=== PATIENT | female | born 1965 | race Caucasian/White ===

== ENCOUNTER 2017-08-31 18:40 | Observation (INO) ==
--- NOTE | 2017-08-31 19:32 | Emergency Department Note ---
Disposition Clinical Impression: Shortness of breath, Hyperkalemia Disposition: Admitted As Inpatient General Adult HPI - General Chief complaint: ED Shortness of Breath/Dyspnea Stated complaint: ADRY,Lung Pain Source: patient Limitations: no limitations Nursing Notes Reviewed: Yes Vital Signs Reviewed: Yes - History of Present Illness HPI Narrative: 51-year-old female past medical history of end-stage renal disease on dialysis 3 days a week, presents to the emergency department with 2 weeks of home pain. Patient states that she has had upper and lower extremity pain or last couple weeks and also reports having the feeling that she is short of breath. Patient states that she has had issues with shortness of breath after moving a walk around the house. Patient is compliant with her dialysis. Patient reports no cough or fever. He is not seen her primary care provider for this. Pain Scale: 0 - Related Data Home Medications Medication Instructions Recorded Confirmed Cetirizine HCl [All Day Allergy] 10 mg PO HS 03/20/16 09/01/17 Diltiazem CD (24hr) [Cardizem CD] 120 mg PO HS 03/20/16 09/01/17 Sertraline [Zoloft] 25 mg PO HS 03/20/16 09/01/17 Simvastatin [Zocor] 5 mg PO HS 03/20/16 09/01/17 Sodium Bicarbonate 650 mg PO TID 03/20/16 09/01/17 Zolpidem [Ambien] 10 mg PO HS 03/20/16 09/01/17 Albuterol Sulfate [Proair Hfa] 2 puff IH Q4H PRN 08/12/16 09/01/17 Calcium Acetate [Phos-LO] 4,002 mg PO TIDWM 08/12/16 09/01/17 Ondansetron HCl [Zofran] 4 - 8 mg PO DAILY PRN 08/12/16 09/01/17 Allergies Allergy/AdvReac Type Severity Reaction Status Date / Time cephalexin [From Keflex] Allergy Hives Verified 09/17/16 19:35 All systems ED: reviewed and negative except as stated. Review of Systems: As Per HPI Constitutional: Denies: fever, chills Cardiovascular: Reports: dyspnea on exertion. Denies: chest pain, palpitations , syncope Respiratory: Reports: dyspnea. Denies: cough, wheezes Gastrointestinal: Reports: abdominal pain. Denies: nausea, vomiting Genitourinary: Denies: urgency Musculoskeletal: Reports: other (Bone pain) Integumentary: Denies: rash Neurological: Denies: numbness, paresthesias Psychiatric: Denies: anxiety Past Medical History - Past Medical History Medical history: Reports: dialysis, hypertension, renal disease, SVT, other Surgical history: Reports: cholecystectomy, hip replacement, orthopedic, other Psychiatric history: Reports: no psych history OTOLARYNGOLOGY SURGEON history: Reports: no OTOLARYNGOLOGY SURGEON history - Social History Smoking Status: Current every day smoker Smokeless Tobacco Status: No Alcohol use: Reports: none Drug use: Reports: none Physical Exam - General Limitations: no limitations General appearance: alert, in no apparent distress - Head Head exam: atraumatic - Eye Eye exam: Present: normal appearance, scleral icterus - ENT ENT exam: normal exam, normal oropharynx - Neck Neck exam: Present: normal inspection - Chest Chest inspection: Present: symmetric chest wall rise - Respiratory Respiratory exam: Present: wheezes - Cardiovascular Cardiovascular exam: Present: regular rate, normal rhythm, +S1, +S2. Absent: JVD - Abdominal Exam Abdominal exam: Present: soft, Non-Tender. Absent: distention, guarding, rebound - Extremities Exam Extremities exam: Present: normal inspection, full ROM. Absent: pedal edema - Back Exam Back exam: Present: normal inspection - Neurological Exam Neurological exam: Present: alert, oriented X3 - Psychiatric Psychiatric exam: Present: normal affect, normal mood - Skin Skin exam: Present: warm, dry, intact Course Vital Signs Temperature 98.2 F 08/31/17 18:59 Pulse Rate 80 08/31/17 18:59 Respiratory Rate 18 08/31/17 18:59 Blood Pressure 175/79 08/31/17 18:59 O2 Sat by Pulse Oximetry 99 08/31/17 18:59 Temperature 97.6 F 09/01/17 05:18 Pulse Rate 88 09/01/17 05:18 Respiratory Rate 16 09/01/17 05:18 Blood Pressure 165/84 09/01/17 05:18 O2 Sat by Pulse Oximetry 95 09/01/17 05:18 Oxygen Delivery Oxygen Delivery Room Air Medical Decision Making - MDM Narrative Medical decision making narrative: 51-year-old female presents to the emergency department with worsening shortness of breath the last couple weeks. Patient has been to her dialysis treatments that she has end-stage renal disease patient. We obtained chest x-ray that did not reveal any evidence of pleural effusion, however did reveal mild cardiomegaly. EKG did not reveal any ischemic changes. We obtained a d-dimer as patient had oxygen saturation of 94% on room air with her shortness of breath. This was elevated. We obtain a CTA of the chest and this revealed calcifications of the pericardium that can be seen with restrictive pericarditis. I spoke with Dr. Zamudio, her dining manager and he stated that this was not a normal finding in patients with end-stage renal disease. Patient did have some mild wheezes on lung exam, no active cough and denies ever being diagnosed with COPD even though that she has been a 20 year smoker. One DuoNeb did assist some with her symptoms. Patient was also hyperkalemic here. Potassium was 6.3. We administered 10 units of insulin subcutaneous and gave one amp of D50. We also gave patient continuous albuterol. Patient was hemodynamically stable throughout her time in the emergency department. We do believe she needs to be admitted for a repeat echocardiogram as she has not had one since 2014 with the new findings of possible restrictive pericarditis. EKG did not reveal any evidence of pericarditis. I discussed the findings with the patient and he agreed to accept her for admission. Hospitalist accepted her. Chest X-Ray 08/31/17 19:10 IMPRESSION: No evidence for acute cardiopulmonary process. D/ / 08/31/2017 19:54:01 Warren Roebrto MD / [facility] Interpreting Provider: Warren Roberto MD Chest CTA 08/31/17 21:05 IMPRESSION: 1. No acute pulmonary embolism. 2. Mosaic ground-glass attenuation of the lungs is nonspecific and can be seen with poor lung expansion as well as small airways disease. 3. Calcifications of the pericardium. This can be seen with restrictive pericarditis. D/ / John Lakhani MD / John Lakhani MD Interpreting Provider: John Lakhani MD - Lab Data Result diagrams: 08/31/17 19:59 08/31/17 19:59 Lab Results 08/31/17 08/31/17 08/31/17 Range/Units 19:59 19:59 19:59 WBC 6.0 (4.3-11.1) K/mcL RBC 3.59 L (3.82-4.97) M/mcL Hgb 11.9 (11.5-15.4) g/dL Hct 35.5 (35.3-44.9) % MCV 98.9 (83.0-100.0) fL MCH 33.1 (28.0-33.3) pg MCHC 33.5 (31.6-35.5) g/dL RDW 17.0 H (11.5-14.5) % Plt Count 148 (140-400) K/mcL MPV 12.3 (9.4-12.4) fL D-Dimer (0-500) ng/mLFEU Sodium Cancelled Potassium Cancelled Chloride Cancelled Carbon Dioxide Cancelled BUN Cancelled Creatinine Cancelled Est GFR ( Amer) Cancelled Est GFR (Non-Af Amer) Cancelled BUN/Creatinine Ratio Cancelled Glucose Cancelled Calculated Osmolality Cancelled Lactic Acid (0.5-2.2) mmol/L Calcium Cancelled Troponin I 0.03 (< 0.04) ng/mL B-Natriuretic Peptide 342 H (Less than 100) pg/mL Specimen Rejected 08/31/17 08/31/17 08/31/17 Range/Units 19:59 19:59 19:59 WBC (4.3-11.1) K/mcL RBC (3.82-4.97) M/mcL Hgb (11.5-15.4) g/dL Hct (35.3-44.9) % MCV (83.0-100.0) fL MCH (28.0-33.3) pg MCHC (31.6-35.5) g/dL RDW (11.5-14.5) % Plt Count (140-400) K/mcL MPV (9.4-12.4) fL D-Dimer 1244 H (0-500) ng/mLFEU Sodium 137 Potassium 6.3 H Chloride 91 L Carbon Dioxide 25 BUN 49 H Creatinine 9.35 H Est GFR ( Amer) 5 L Est GFR (Non-Af Amer) 4 L BUN/Creatinine Ratio 5 L Glucose 91 Calculated Osmolality 297 Lactic Acid (0.5-2.2) mmol/L Calcium 7.0 L Troponin I (< 0.04) ng/mL B-Natriuretic Peptide (Less than 100) pg/mL Specimen Rejected Miscellaneous 08/31/17 Range/Units 20:36 WBC (4.3-11.1) K/mcL RBC (3.82-4.97) M/mcL Hgb (11.5-15.4) g/dL Hct (35.3-44.9) % MCV (83.0-100.0) fL MCH (28.0-33.3) pg MCHC (31.6-35.5) g/dL RDW (11.5-14.5) % Plt Count (140-400) K/mcL MPV (9.4-12.4) fL D-Dimer (0-500) ng/mLFEU Sodium Potassium Chloride Carbon Dioxide BUN Creatinine Est GFR ( Amer) Est GFR (Non-Af Amer) BUN/Creatinine Ratio Glucose Calculated Osmolality Lactic Acid 1.3 (0.5-2.2) mmol/L Calcium Troponin I (< 0.04) ng/mL B-Natriuretic Peptide (Less than 100) pg/mL Specimen Rejected - EKG Data EKG #1 EKG attestation: Yes I reviewed and interpreted this EKG. EKG results narrative: 08/31/2017 19:19 Sinus rhythm with a ventricular rate of 80 bpm. QT 437, QTC 472. No acute ischemic changes are noted on the EKG. Attestation Statement - Attestation Attestation: I examined this patient and my medical decision-making was reviewed with the Resident Physician. I agree with the documented findings, disposition and treatment plan as described except to the extent set forth below. Findings consistent with restrictive pericarditis. We will admit for cardiac echo. When compared to previous studies this was not evident. Patient does have renal failure. We will need admission for further management. No signs of A knot at time of admission.
[2017-08-31 20:19] LABS: Hematocrit 35.5 % (35.3-44.9); Hemoglobin 11.9 g/dL (11.5-15.4); Mean Corpuscular HGB Conc 33.5 g/dL (31.6-35.5); Mean Corpuscular Hemoglobin 33.1 pg (28.0-33.3); Mean Corpuscular Volume 98.9 fL (83.0-100.0); Mean Platelet Volume 12.3 fL (9.4-12.4); Platelet Count 148 K/mcL (140-400); Red Blood Count 3.59 M/mcL (3.82-4.97)
[2017-08-31] MEDS ORDERED: *HR* FentaNYL (PF) 100 MCG/2 ML VIAL IVP ONE (21:02)
[2017-08-31] MEDS ORDERED: Isovue-370 500 ML INFUS..BTL IV ONE (21:05)
[2017-08-31 21:09] LABS: Potassium 6.3 mEq/L (3.5-5.1)
[2017-08-31] MEDS ORDERED: Albuterol 2.5 MG/3 ML NEBULIZER IH ONE (22:57)
[2017-08-31] MEDS ORDERED: Insulin Human Regular 10 UNIT in 0.9 % Sodium Chloride 10 ML IV ONE (22:58)
[2017-08-31] MEDS ORDERED: *HR* Dextrose 50 % in Water (Syg) 50 ML SYRINGE IVP ONE (22:58)
[2017-09-01] MEDS ORDERED: Naloxone 0.4 MG/ML INJ IVP PRN (05:07)
--- NOTE | 2017-09-01 05:22 | Internal Med History&Physical ---
Date of Encounter: 09/01/17 Time of Encounter: 04:00 Internal Medicine - H&P: HPI Chief complaint: Shortness of breath and bone pain Admitted From: Home Plans for Post Hospital Care: Home History of present illness: Ms. Taylor is a 51 year old female present to ER for whole-body bone pain. Past medical history is significant for hypertension, end-stage renal disease on hemodialysis, hyperparathyroidism S/P parathyroid gland resection. Patient said in last 3 weeks she feels whole-body bone ache, mainly on both arms and the legs. Patient still can walk and have normal daily activity. Patient also complaining shortness of breath, easy being tired. She denies cough, nausea, or fever. In the emergency room, she was found hyperkalemia with potassium level 6.3. Because of shortness of breath, d-dimer was checked, which was positive. ER doctor ordered CTA and the shows paracardium calcification, need to rule out restrictive pericarditis. Patient was admitted for further management. Past Med Surg Social Fam HX - Past Medical History Medical history: dialysis, hypertension, renal disease, SVT, other Psychiatric history: no psych history - Past Surgical History Surgical History: cholecystectomy, hip replacement, orthopedic, other - Social History Smoking Status: Current every day smoker Smokeless Tobacco Status: No Alcohol use: none Drug use: none - Family History Mother History Unknown: Yes Internal Medicine - H&P: Meds Cetirizine HCl [All Day Allergy] 10 mg PO HS 03/20/16 [History] Diltiazem CD (24hr) [Cardizem CD] 120 mg PO HS 03/20/16 [History] Sertraline [Zoloft] 25 mg PO HS 03/20/16 [History] Simvastatin [Zocor] 5 mg PO HS 03/20/16 [History] Sodium Bicarbonate 650 mg PO TID 03/20/16 [History] Zolpidem [Ambien] 10 mg PO HS 03/20/16 [History] Albuterol Sulfate [Proair Hfa] 2 puff IH Q4H PRN 08/12/16 [History] Calcium Acetate [Phos-LO] 4,002 mg PO TIDWM 08/12/16 [History] Ondansetron HCl [Zofran] 4 - 8 mg PO DAILY PRN 08/12/16 [History] 3 Allergy/AdvReac Type Severity Reaction Status Date / Time cephalexin [From Keflex] Allergy Hives Verified 09/17/16 19:35 All Systems PM: A 10-system review of systems was performed and is negative for pertinent findings except as documented above in the HPI. - Constitutional Vitals: Temp Pulse Resp BP Pulse Ox 97.6 F 88 16 165/84 95 09/01/17 05:18 09/01/17 05:18 09/01/17 05:18 09/01/17 05:18 09/01/17 05:18 General appearance: Present: A&O X 3, no acute distress, answers questions appropriately - Head Head exam: Present: atraumatic, normocephalic - Eye Eye exam: Present: PERRL, conjuntiva pink, sclera anicteric Pupils: Present: PERRL - Neck Neck exam general surgery: Present: supple, trachea midline. Absent: lymphadenopathy - Respiratory Respiratory exam: Present: CTAB. Absent: accessory muscle use, rales, rhonchi, wheezes - Cardiovascular Cardiovascular exam: Present: RRR, +S1, +S2. Absent: diastolic murmur, gallop, rubs, systolic murmur - GI/Abdominal GI/Abdominal exam: Present: normal bowel sounds, soft, no peritoneal signs. Absent: distended, tenderness - Extremities Exam Extremities exam: Present: warm, radial pulses palpable and symmetrical. Absent : calf tenderness, cyanotic, pedal edema - Neurological Exam Neurological exam: Present: CN II-XII intact, oriented X3, no focal deficits. Absent: pronater drift, facial droop, speech deficit - Skin Skin exam: Present: dry, intact Internal Med - H&P Results - Labs CBC & Chem 7: 08/31/17 19:59 08/31/17 19:59 - Assessment and plan (1) Bone pain Current Visit: Yes Status: Acute Assessment and plan: Patient has history of hyperparathyroidism. Had the surgery previously. Need to rule out hyperparathyroidism (secondary or primary). - Check parathyroid hormone together with calcium and albumin level. - Further test can be done as outpatient. (2) DVT prophylaxis Current Visit: Yes Status: Acute Assessment and plan: Heparin subcutaneously (3) End stage renal disease Current Visit: Yes Status: Acute Assessment and plan: Continue hemodialysis as scheduled (4) Hyperkalemia Current Visit: Yes Status: Acute Assessment and plan: Patient was treated with insulin and glucose IV, albuterol inhaler in the emergency room. Will also give her Kayexalate by mouth 30 g once. Follow-up potassium level. (5) Shortness of breath Current Visit: Yes Status: Acute Assessment and plan: Chronic onset shortness of breath. CTA shows pericardium calcification. Need to rule out restrictive pericarditis. - No clinical sign of restrictive pericarditis so far. - We will check echocardiogram in a.m. - Time Spent With Patient Total time spent is greater than 50% in coordination of care (as documented) at patient's floor/unit and/or counseling patient: 40 minutes Greater than 35 minutes
[2017-09-01] MEDS: *HR* Heparin 5,000 UNIT/ML VIAL SQ SCH ×2 (06:15→21:56)
[2017-09-01] MEDS: Acetaminophen 325 MG TABLET PO PRN ×2 (06:15→18:22)
[2017-09-01 06:33] LABS: Albumin 4.5 g/dL (3.5-5.7); Albumin/Globulin Ratio 1.5 (1.1-2.2); Bilirubin,Total 0.4 mg/dL (0.3-1.0); Calcium 7.1 mg/dL (8.6-10.3); Potassium 4.3 mEq/L (3.5-5.1); Total Protein 7.5 g/dL (6.4-8.9)
[2017-09-01 08:21] LABS: Hepatitis B Surface Antigen Nonreactive (Nonreactive)
--- NOTE | 2017-09-01 08:22 | Internal Med Progress Note ---
Addendum entered and electronically signed by Abelardo Vallejo DO 09/01/17 16: 42: Addendum to (1) - diruesis was entered in error, as patient is on HD for fluid removal Original Note: <Abelardo Vallejo - Last Filed: 09/01/17 16:31> Date of Encounter: 09/01/17 Time of Encounter: 08:45 - Assessment and plan (1) Shortness of breath Current Visit: Yes Status: Acute Assessment and plan: Chronic onset shortness of breath. CTA shows pericardium calcification. Need to rule out restrictive pericarditis. - No clinical sign of restrictive pericarditis so far. - Echocardiogram remains pending - Continued gentle diuresis (2) Hyperkalemia Current Visit: Yes Status: Resolved Assessment and plan: Resolved (3) Bone pain Current Visit: Yes Status: Acute Assessment and plan: Patient has history of hyperparathyroidism s/p parathyroidectomy. Need to rule out hyperparathyroidism (secondary or primary). - Elevated PTH, low calcium. - We will check Vitamin D25 [place] level - Further test can be done as outpatient. (4) End stage renal disease Current Visit: Yes Status: Acute Assessment and plan: Continue hemodialysis as scheduled per nephrology (5) DVT prophylaxis Current Visit: Yes Status: Acute Assessment and plan: Heparin subcutaneously (6) Hypocalcemia Current Visit: Yes Status: Acute Assessment and plan: Possibly related to PTH/parathyroidectomy vs ESRD We will check ionized calcium and vit D 25OH - Time Spent With Patient Total time spent is greater than 50% in coordination of care (as documented) at patient's floor/unit and/or counseling patient: - Subjective Interval history: The patient is seen and examined at bedside. She says that she is feeling mildly better than she did when she came in. Today is a hemodialysis today being seen by nephrology. She has no acute complaints. - Constitutional Vitals: Temp Pulse Resp BP Pulse Ox 98 F 84 18 142/73 97 09/01/17 07:13 09/01/17 07:13 09/01/17 07:13 09/01/17 07:13 09/01/17 07:13 General appearance: Present: A&O X 3, no acute distress, answers questions appropriately Exam: Gen: Vitals noted. No acute distress. HEENT: PERRL/EOMI, oropharynx clear, Normocephalic, atraumatic Neck: Supple. No adenopathy. Cardiac: RRR, no murmur, +S1/S2 Pulmonary: CTA bilaterally but somewhat diminished, no wheezes, rales or rhonchi , equal chest expansion Abdomen: moderately distended and taught, nontender, no guarding MSK: ROM intact, no joint swelling noted Extremities: trace BLE edema, nontender calf, no cyanosis or clubbing Neuro: moves all extremities, no focal deficits Psych: Appropriate mood and behavior Internal Medicine: Result - Labs CBC & Chem 7: 08/31/17 19:59 09/01/17 05:47 Labs: BMP 09/01/17 05:47 Sodium 142 Potassium 4.3 D Chloride 94 L Carbon Dioxide 23 BUN 52 H Creatinine 10.47 H Glucose 109 H Calcium 7.1 L Liver Function 09/01/17 Range/Units 05:47 Total Bilirubin 0.4 (0.3-1.0) mg/dL AST 21 (13-39) Units/L ALT 17 (7-52) Units/L Alkaline Phosphatase 110 H (34-104) Units/L Albumin 4.5 (3.5-5.7) g/dL - ABG Interpretation ABG results: PT/INR, D-dimer D-Dimer 1244 ng/mLFEU (0-500) H 08/31/17 19:59 Consult Discharge Plan - Plan Referrals: Demetra Ellison, [facility] HOOKER [Primary Care Provider] - <Patric Cota - Last Filed: 09/01/17 18:29> Date of Encounter: 09/01/17 - Assessment and plan (1) Constrictive pericarditis Current Visit: Yes Status: Suspected (2) Hyperkalemia Current Visit: Yes Status: Resolved (3) Shortness of breath Current Visit: Yes Status: Acute (4) Bone pain Current Visit: Yes Status: Acute (5) End stage renal disease Current Visit: Yes Status: Acute (6) Hypocalcemia Current Visit: Yes Status: Acute (7) DVT prophylaxis Current Visit: Yes Status: Acute - Time Spent With Patient Total time spent is greater than 50% in coordination of care (as documented) at patient's floor/unit and/or counseling patient: - Constitutional Vitals: Temp Pulse Resp BP Pulse Ox 97.9 F 82 20 153/81 94 09/01/17 15:40 09/01/17 15:16 09/01/17 15:40 09/01/17 18:10 09/01/17 15:16 Internal Medicine: Result - Labs CBC & Chem 7: 08/31/17 19:59 09/01/17 05:47 Labs: BMP 09/01/17 05:47 Sodium 142 Potassium 4.3 D Chloride 94 L Carbon Dioxide 23 BUN 52 H Creatinine 10.47 H Glucose 109 H Calcium 7.1 L Liver Function 09/01/17 Range/Units 05:47 Total Bilirubin 0.4 (0.3-1.0) mg/dL AST 21 (13-39) Units/L ALT 17 (7-52) Units/L Alkaline Phosphatase 110 H (34-104) Units/L Albumin 4.5 (3.5-5.7) g/dL - ABG Interpretation ABG results: PT/INR, D-dimer D-Dimer 1244 ng/mLFEU (0-500) H 08/31/17 19:59 - Attending Attestation I examined this patient and my medical decision-making was reviewed with the Resident Physician on 09/01/17. I agree with the documented findings, disposition and treatment plan as described except to the extent set forth below. Ms Taylor is currently admitted for hyperkalemia and diffuse pain. She remains moderate to high risk due to potential for worsening clinical status. Ms Taylor is going to dialysis. No fever or chills. CT had concern for constrictive pericarditis. Exam alert Comfortable Mucus membranes dry Heart not tachycardic No wheeze I/P 1. Hyperkalemia 2. 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
[2017-09-01 08:31] LABS: Hepatitis B Surface Antibody 19.51 mIU/mL
[2017-09-01] MEDS: Calcium Acetate 667 MG CAPSULE PO SCH ×3 (08:34→21:56)
[2017-09-01] MEDS: Ondansetron ODT 4 MG TAB.RAPDIS PO PRN (08:37)
--- NOTE | 2017-09-01 09:22 | Nephrology Consult Note ---
Date of Encounter: 09/01/17 Time of Encounter: 09:19 Assessment and Plan (1) End stage renal disease Current Visit: Yes Status: Acute The patient has end-stage renal disease. She will continue with dialysis every Wednesday. Hemoglobin was is 11.9 so she does not require Aranesp. We will check a phosphorus level. PTH is within normal limits for dialysis patient. She does have calcification of the pericardium and likely should have an echocardiogram. Her symptoms of exertional dyspnea and diaphoresis do not seem to be related to volume overload. It may be worthwhile to do a adenosine stress test. (2) Shortness of breath Current Visit: Yes Status: Acute (3) Bone pain Current Visit: Yes Status: Acute History of Present Illness - History of Present Illness This is a 51-year-old female who has end-stage renal disease. She receives dialysis injection every Wednesday. Patient presented to the restroom with complaints of worsening bone pain as well as complaints of shortness of breath. Patient has a history of secondary hyperparathyroidism. She underwent a parathyroidectomy years ago. Current PTH is within normal limits for dialysis patient. She has had issues with hyperphosphatemia and subsequent hypocalcemia although this is managed with medication. She also relates worsening dyspnea with minimal exertion associated with diaphoresis. She denies any chest pain or nausea. Patient has had multiple joint issues and multiple joint replacements over the years. She says most of her bone pain is in the forearm areas and the upper legs. She states she has not had any type of bone density testing as far she is aware. She has been placed on vitamin D by her primary care provider. The patient's chest x-ray was unremarkable. A CT angiogram was negative for pulmonary embolism. The CT did show calcification of the pericardium. Past Med Surg Social Fam HX - Past Medical History Medical history: dialysis, hyperlipidemia, hypertension, renal disease, SVT, thyroid disease, other Psychiatric history: anxiety, depression - Past Surgical History Surgical History: cholecystectomy, hip replacement, orthopedic, other, thyroidectomy, transplant - Social History Smoking Status: Current every day smoker Packs per day: 0.5 Smokeless Tobacco Status: No Alcohol use: none Drug use: none - Family History Mother History Unknown: Yes Living Status: Age at : 58 Cause of : ALS Hx Family Endocrine Disorder: Yes (Type 2 DM) Hx Family Medical Disorders: Yes (ALS) Father Living Status: Age at : 71 Cause of : Unknown Hx Family Cardiac Disorders: Yes (HTN) Hx Family Respiratory Disorders: Yes (COPD) Hx Family Cancer: Yes (Colon ca) Hx Family Endocrine Disorder: Yes (DM Type 2) Medications and Allergies Cetirizine HCl [All Day Allergy] 10 mg PO HS 03/20/16 [History] Sertraline [Zoloft] 25 mg PO HS 03/20/16 [History] Simvastatin [Zocor] 5 mg PO HS 03/20/16 [History] Sodium Bicarbonate 650 mg PO TID 03/20/16 [History] Zolpidem [Ambien] 10 mg PO HS 03/20/16 [History] Albuterol Sulfate [Proair Hfa] 2 puff IH Q4H PRN 08/12/16 [History] Calcium Acetate [Phos-LO] 4,002 mg PO TIDWM 08/12/16 [History] Ondansetron HCl [Zofran] 4 - 8 mg PO DAILY PRN 08/12/16 [History] Cholecalciferol (Vitamin D3) [Vitamin D3] 10,000 unit PO DAILY 09/01/17 [History ] dilTIAZem HCl [Diltiazem HCl] 120 mg PO DAILY 09/01/17 [History] 3 Allergy/AdvReac Type Severity Reaction Status Date / Time cephalexin [From Keflex] Allergy Hives Verified 09/01/17 09:07 Review of Systems Constitutional: as per HPI Nose, mouth and throat: no dizziness, no headache(s) Cardiovascular: dyspnea on exertion, no chest pain, no palpitations Respiratory: dyspnea on exertion Gastrointestinal: no abdominal pain, no change in bowel habits Musculoskeletal: no muscle weakness, no numbness Integumentary: no hirsutism, no striae Neurological: as per HPI Psychiatric: no depression, no difficulty concentrating Endocrine: as per HPI Hematologic/Lymphatic: no easy bruising, no lymphadenopathy Exam - Vital Signs Vital signs: Initial Vital Signs Temp Pulse Resp BP Pulse Ox 98.2 F 80 18 175/79 99 08/31/17 18:59 08/31/17 18:59 08/31/17 18:59 08/31/17 18:59 08/31/17 18:59 Vital Signs - Last 8 Hours Temp Pulse Resp BP Pulse Ox 05/16/18 07:13 98 F 84 18 142/73 97 09/01/17 05:18 97.6 F 88 16 165/84 95 09/01/17 04:37 18 140/65 Intake and Output 08/31/17 09/01/17 09/01/17 23:59 07:59 15:59 Output Total 0 / 0 Balance 0 / 0 Output: Urine 0 / 0 Other: Weight 93.1 kg Patient Weight 09/01/17 23:59 Weight 93.1 kg - General Appearance Exam: Patient is alert and oriented. She is in no acute distress. She is sitting on the edge of the bed. Lungs clear to auscultation. Heart regular rate and rhythm with a 2/6 talk ejection murmur. Abdomen shows normal bowel sounds bruits masses or megaly or tenderness. Lower extremity show no peripheral edema. There is a functioning AV graft in the left upper extremity. Results - Lab Results 08/31/17 19:59 09/01/17 05:47 Most recent lab results Calcium 7.1 mg/dL (8.6-10.3) L 09/01/17 05:47 Consult Discharge Plan - Plan Referrals: Demetra Ellison, PLANNING ASSOCIATE [Primary Care Provider] -
[2017-09-01] MEDS ORDERED: 0.9 % Sodium Chloride 250 ML IVC PRN (09:23)
[2017-09-01] MEDS ORDERED: Calcium Chloride 1,000 MG in 0.9 % Sodium Chloride 100 ML IVPB ONE (11:07)
--- NOTE | 2017-09-01 16:19 | Electrocardiograph Report ---
[place] [id number] Test Date: 2017-08-31 Pat Name: Katlyn Taylor Department: 103 Room: 2NE17 Gender: F Ground Operations Supervisor: TISH : 1965 Requested By: Vincent Beavers Order Number: [id number] Reading MD: Chloé Dunn Measurements Intervals [place] Rate: 80 P: 92 MI: 176 QRS: 57 QRSD: 88 T: 79 QT: 437 QTc: 472 Interpretive Statements SINUS RHYTHM MINIMAL ST DEPRESSION [0.025+ mV ST DEPRESSION] PROLONGED QT INTERVAL Electronically Signed On 09-01-2017 16:17:16 EDT by Chloé Dunn
[2017-09-01 17:24] LABS: VBG Ionized Calcium 0.86 mmol/L (1.15-1.35)
[2017-09-01] MEDS ORDERED: Loratadine 10 MG TABLET PO SCH (21:00)
[2017-09-01] MEDS ORDERED: Diltiazem CD (24hr) 120 MG CAPSULE PO SCH (21:00)
[2017-09-02 04:50] LABS: Basophils % 0.5 %; Eosinophils # 0.2 K/mcL (0.0-0.6); Eosinophils % 2.7 %; Hematocrit 36.3 % (35.3-44.9); Hemoglobin 11.4 g/dL (11.5-15.4); Immature Granulocytes % 0.4 % (0-4); Lymphocytes # 0.9 K/mcL (0.6-4.6); Lymphocytes % 16.9 %; Mean Corpuscular HGB Conc 31.4 g/dL (31.6-35.5); Mean Corpuscular Hemoglobin 32.2 pg (28.0-33.3); Mean Corpuscular Volume 102.5 fL (83.0-100.0); Mean Platelet Volume 11.5 fL (9.4-12.4); Monocytes # 0.4 K/mcL (0.0-1.3); Monocytes % 7.4 %; Platelet Count 160 K/mcL (140-400); Red Blood Count 3.54 M/mcL (3.82-4.97); Red Cell Distribution Width 17.5 % (11.5-14.5); Segmented Neutrophils % 72.1 %
[2017-09-02 05:15] LABS: Calcium 7.6 mg/dL (8.6-10.3); Phosphorous 5.5 mg/dL (2.7-4.5); Potassium 4.6 mEq/L (3.5-5.1)
[2017-09-02] MEDS: *HR* Heparin 5,000 UNIT/ML VIAL SQ SCH (06:30)
[2017-09-02] MEDS: Ondansetron ODT 4 MG TAB.RAPDIS PO PRN (08:21)
[2017-09-02] MEDS: Calcium Acetate 667 MG CAPSULE PO SCH ×2 (08:21→11:35)
[2017-09-02] MEDS ORDERED: Calcium Gluconate 2,000 MG in 0.9 % Sodium Chloride 100 ML IVPB ONE (08:55)
--- NOTE | 2017-09-02 09:03 | Discharge Summary ---
<Abelardo Vallejo - Last Filed: 09/02/17 15:13> - NOTES TO OUTPATIENT PROVIDER Notes to Outpatient Provider: The patient was admitted for fluid overload, end- stage renal disease, hyperkalemia. In addition this, she was having aches all over her body, and on her arms and legs. She was having increasing difficulty doing daily tasks is this pain and shortness of breath that she was experiencing. There is concern for PE, however CTA did not demonstrate. She also received an echocardiogram which was grossly normal. She will need DEXA as outpatient. Orders not resulted at time of discharge: Pending orders 09/01/17 07:21 Vitamin D 25 Hydroxy Routine Date of Encounter: 09/02/17 Time of Encounter: 08:50 - Discharge Diagnosis (1) Shortness of breath Priority: Primary Status: Acute Assessment and Plan: Chronic onset shortness of breath. CTA shows pericardium calcification. Need to rule out restrictive pericarditis. - No clinical sign of restrictive pericarditis so far. - Echocardiogram shows normal LVEF with mild aortic stenosis - She does admit to trouble tolerating full hemodialysis, defer to nephrology (2) Hyperkalemia Priority: Secondary Status: Resolved Assessment and Plan: Resolved (3) Bone pain Priority: Secondary Status: Acute Assessment and Plan: Patient has history of hyperparathyroidism s/p parathyroidectomy. Need to rule out hyperparathyroidism (secondary or primary). - Elevated PTH, low calcium. Vitamin D 25OH is at appropriate lever - Some symptoms are consistent with hypocalcemia, and he venous ionized calcium was in fact low - Supplemented calcium in hospital, sent patient out on PO calcium and wrote order for 1 week BMP + ionized calcium - Further test can be done as outpatient. May benefit from endocrinology referral per PCP (4) End stage renal disease Priority: Secondary Status: Acute Assessment and Plan: Continue hemodialysis as scheduled per nephrology (5) Hypocalcemia Priority: Secondary Status: Acute Assessment and Plan: Possibly related to PTH/parathyroidectomy vs ESRD See plan above Hospital course: Ms. Taylor is a 51 year old female with history of hyperparathyroidism status post parathyroidectomy, ESRD on Hd who presented with complaint of whole body pain for several weeks that has been worsening insidiously over time. In addition of this she complained of headache, and she had some shortness of breath on admission. She did receive an echocardiogram which only demonstrated mild aortic stenosis, however she was also found to be significantly hypocalcemic. Respiratory infection panel did not demonstrate any signs of viral infection at this time. For more detailed hospital course with specific post discharge plans, please see individual assessments. Discharge discussed with: patient, nurse, internal control consultant - Time Spent with Patient Total time spent providing and/or coordinating discharge services: Greater than 30 minutes - Discharge Medications Prescriptions: Calcium Carbonate [Tums] 1,000 mg PO DAILY 7 Days #28 tab.chew Home Medications: Cetirizine HCl [All Day Allergy] 10 mg PO HS 03/20/16 [History] Sertraline [Zoloft] 25 mg PO HS 03/20/16 [History] Simvastatin [Zocor] 5 mg PO HS 03/20/16 [History] Sodium Bicarbonate 650 mg PO TID 03/20/16 [History] Zolpidem [Ambien] 10 mg PO HS 03/20/16 [History] Albuterol Sulfate [Proair Hfa] 2 puff IH Q4H PRN 08/12/16 [History] Calcium Acetate [Phos-LO] 4,002 mg PO TIDWM 08/12/16 [History] Ondansetron HCl [Zofran] 4 - 8 mg PO DAILY PRN 08/12/16 [History] Cholecalciferol (Vitamin D3) [Vitamin D3] 10,000 unit PO DAILY 09/01/17 [History ] Calcium Carbonate [Tums] 1,000 mg PO DAILY 7 Days #28 tab.chew 09/02/17 [Rx] Diltiazem CD (24hr) [Cardizem CD] 120 mg PO HS cap.er.24h 09/02/17 [Rx] Allergies/Adverse Reactions: 3 Allergy/AdvReac Type Severity Reaction Status Date / Time cephalexin [From Keflex] Allergy Hives Verified 09/01/17 09:07 Date of admission: 09/01/17 03:30 Primary care physician: Demetra Ellison, Consults: 09/01/17 05:18 Consult to Nephrology [CONS] Routine Consulting Provider: [facility] Reason for Consult: Hyperkalemia Call Completed: No 09/01/17 09:30 Consult to Dialysis [CONS] ONCE Discharging clinician: Abelardo Vallejo Anticipated date of discharge: 09/02/17 - Constitutional Vitals: Temp Pulse Resp BP Pulse Ox 97.7 F 83 16 108/72 95 09/02/17 07:01 09/02/17 07:01 09/02/17 07:01 09/02/17 07:01 09/02/17 07:01 General appearance: Present: A&O X 3, no acute distress, answers questions appropriately Exam: Gen: Vitals noted. No acute distress. HEENT: Normocephalic, atraumatic Neck: Supple. No adenopathy. Cardiac: RRR, no murmur, +S1/S2 Pulmonary: CTA bilaterally but somewhat diminished, no wheezes, rales or rhonchi , equal chest expansion Abdomen: moderately distended and taught, nontender, no guarding MSK: ROM intact, no joint swelling noted Extremities: trace BLE edema, nontender calf, no cyanosis or clubbing Neuro: moves all extremities, no focal deficits Psych: Appropriate mood and behavior - Patient Status Disposition: Home, Self-Care Condition: Good Functional capacity at discharge: independent ambulation Overall status at discharge: patient is progressing back to baseline - Discharge Instructions Follow Up With: Demetra Ellison CNP [Primary Care Provider] - Additional Instructions: Follow-up with primary care in 3-5 days Continue HD on regular schedule. Follow with Nephrology as directed. Take medications as prescribed. Repeat labs in one week to monitor calcium. Will likely require DEXA scan - Diet and Activity Activity: increase activity as tolerated, resume usual activities as tolerated Diet: other (Renal diet) <Patric Cota - Last Filed: 09/02/17 16:15> Date of Encounter: 09/02/17 - Discharge Diagnosis (1) Hypocalcemia Status: Acute (2) Shortness of breath Status: Acute (3) Hyperkalemia Status: Resolved (4) Bone pain Status: Acute (5) End stage renal disease Status: Acute (6) Tobacco abuse Priority: Secondary Status: Chronic (7) Constrictive pericarditis Priority: Secondary Status: Ruled-out Hospital course: Ms. Taylor is a 51 year old female - Time Spent with Patient Total time spent providing and/or coordinating discharge services: 37min Date of admission: 09/01/17 03:30 Primary care physician: Demetra Ellison, Consults: 09/01/17 05:18 Consult to Nephrology [CONS] Routine Consulting Provider: [facility] Reason for Consult: Hyperkalemia Call Completed: No 09/01/17 09:30 Consult to Dialysis [CONS] ONCE - Constitutional Vitals: Temp Pulse Resp BP Pulse Ox 98.3 F 77 16 125/103 93 09/02/17 10:34 09/02/17 10:34 09/02/17 10:34 09/02/17 10:34 09/02/17 10:34 - Attending Attestation I examined this patient and my medical decision-making was reviewed with the Resident Physician on 09/02/17. I agree with the documented findings, disposition and treatment plan as described except to the extent set forth below. Ms Taylor has been in observation for hyperkalemia and hypocalcemia. She is now afebrile. She has been given IV Calcium. Echo was negative for constrictive pericarditis. She is ready for discharge home. Exam alert Comfortable Mucus membranes moist Heart not tachy No wheeze Plan D/C home today
[2017-09-02 10:39] VITALS: BP 125/103
--- NOTE | 2017-09-02 11:45 | Nephrology Progress Note ---
Date of Encounter: 09/02/17 Time of Encounter: 09:50 - Assessment and Plan (1) End stage renal disease Current Visit: Yes Status: Acute No HD today, keeping MWF schedule. Subjective Interval history: Sitting up in bed. States feeling better, would like to go home. Objective - Vital Signs Vital signs: Vital Signs Temp Pulse Resp BP Pulse Ox 09/02/17 10:34 98.3 F 77 16 125/103 93 09/02/17 07:01 97.7 F 83 16 108/72 95 09/02/17 04:00 98 F 93 15 137/102 96 09/01/17 23:00 98.4 F 94 15 143/86 96 09/01/17 19:00 98.3 F 91 16 142/103 97 09/01/17 18:40 151/85 09/01/17 18:25 155/83 09/01/17 18:10 153/81 09/01/17 17:55 146/84 09/01/17 17:40 156/89 09/01/17 17:25 168/92 09/01/17 17:10 163/87 09/01/17 16:55 153/93 09/01/17 16:40 145/93 09/01/17 16:25 161/96 09/01/17 16:10 150/96 09/01/17 15:55 145/83 09/01/17 15:40 97.9 F 20 160/98 09/01/17 15:16 98.1 F 82 18 146/70 94 Intake and Output 09/01/17 09/02/17 09/02/17 23:59 07:59 15:59 Intake Total 200 / 200 400 / 400 240 / 240 Output Total 3600 / 3600 0 / 0 0 / 0 Balance -3400 / -3400 400 / 400 240 / 240 Intake: Oral 200 / 200 400 / 400 240 / 240 Output: Urine 0 / 0 0 / 0 0 / 0 Total Dialysis (HD) Output 3600 / 3600 Other: Meal Breakfast Percent of Meal Consumed 95% Weight 89.2 kg 89.2 kg Hemodialysis Net Fluid Removed 3000 (mL) Patient Weight 09/02/17 23:59 Weight 89.2 kg - General Appearance General appearance: Present: well-developed, well-nourished, appears started age EENT: Present: mucous membranes moist Neck: Present: no JVD Respiratory: Present: clear Cardiology: Present: no edema, regular rate, regular rhythm Gastrointestinal: Present: normoactive bowel sounds, no tenderness Integumentary: Present: warm and dry Neurologic: Present: alert and oriented x3 - Lab 09/02/17 04:29 09/02/17 04:29 Most recent lab results Calcium 7.6 mg/dL (8.6-10.3) L 09/02/17 04:29 Phosphorus 5.5 mg/dL (2.7-4.5) H 09/02/17 04:29 Magnesium 2.0 mg/dL (1.6-2.6) 09/02/17 04:29 Consult Discharge Plan - Plan Additional Instructions: Follow-up with primary care in 3-5 days Continue HD on regular schedule. Follow with Nephrology as directed. Take medications as prescribed. Repeat labs in one week to monitor calcium. Referrals: Demetra Ellison CNP [Primary Care Provider] - Prescriptions: Calcium Carbonate [Tums] 1,000 mg PO DAILY 7 Days #28 tab.chew
[2017-09-02 13:12] LABS: Adenovirus Not Detected (Not Detect); Bordetella Pertussis Not Detected (Not Detect); Chlamydophila pneumoniae Not Detected (Not Detect); Coronavirus 229E Not Detected (Not Detect); Coronavirus HKU1 Not Detected (Not Detect); Coronavirus NL63 Not Detected (Not Detect); Coronavirus OC43 Not Detected (Not Detect); Human Metapneumovirus Not Detected (Not Detect); Human Rhinovirus/Enterovirus Not Detected (Not Detect); Influenza A Subtype 2009 H1 Not Detected (Not Detect); Influenza A Untypeable Not Detected (Not Detect); Influenza B Not Detected (Not Detect); Mycoplasma pneumoniae Not Detected (Not Detect); Parainfluenza Virus 1 Not Detected (Not Detect); Parainfluenza Virus 2 Not Detected (Not Detect); Parainfluenza Virus 3 Not Detected (Not Detect); Parainfluenza Virus 4 Not Detected (Not Detect); Respiratory Syncytial Virus Not Detected (Not Detect)
== END 2017-09-02 13:44 | disposition home or self-care (01) ==
LOC: 2NENU 18:40 → EMEROO 18:40 → SUATTDRO 09-01 03:30 → 2NENU 09-01 04:37
PROVIDERS: ADMIT Family Medicine; ATTEND Internal Medicine

== ENCOUNTER 2018-01-14 12:33 | Inpatient (IN) ==
--- NOTE | 2018-01-14 13:09 | Emergency Department Note ---
Disposition Clinical Impression: Anemia, End stage renal disease Disposition: Admitted As Inpatient Condition: Good General Adult HPI - General Chief complaint: ED Recheck/Abnormal Lab/Rx Stated complaint: low hgb Time Seen by Provider: 01/14/18 12:40 Source: patient Limitations: no limitations Nursing Notes Reviewed: Yes Vital Signs Reviewed: Yes - History of Present Illness Pain Scale: 0 - Related Data Home Medications Medication Instructions Recorded Confirmed Cetirizine HCl [All Day Allergy] 10 mg PO HS 03/20/16 01/14/18 Sertraline [Zoloft] 25 mg PO HS 03/20/16 01/14/18 Simvastatin [Zocor] 5 mg PO HS 03/20/16 01/14/18 Sodium Bicarbonate 650 mg PO TID 03/20/16 01/14/18 Zolpidem [Ambien] 10 mg PO HS 03/20/16 01/14/18 Albuterol Sulfate [Proair Hfa] 2 puff IH Q4H PRN 08/12/16 01/14/18 Calcium Acetate [Phos-LO] 4,002 mg PO TIDWM 08/12/16 01/14/18 Ondansetron HCl [Zofran] 4 - 8 mg PO DAILY PRN 08/12/16 01/14/18 Cholecalciferol (Vitamin D3) 10,000 unit PO DAILY 09/01/17 01/14/18 [Vitamin D3] cloNIDine HCl [CloNIDine HCl] 0.1 mg PO DAILY PRN 01/14/18 01/14/18 Previous Rx's Medication Instructions Recorded Calcium Carbonate [Tums] 1,000 mg PO DAILY 7 Days #28 09/02/17 tab.chew Diltiazem CD (24hr) [Cardizem CD] 120 mg PO HS cap.er.24h 09/02/17 Allergies Allergy/AdvReac Type Severity Reaction Status Date / Time cephalexin [From Keflex] Allergy Hives Verified 09/01/17 09:07 Past Medical History - Past Medical History Medical history: Reports: coronary artery disease, dialysis, hyperlipidemia, hypertension, peripheral artery disease, renal disease, SVT, thyroid disease, other Surgical history: Reports: cholecystectomy, hip replacement, orthopedic, other, thyroidectomy, transplant Psychiatric history: Reports: anxiety, depression BRAND ADVISOR history: Reports: no BRAND ADVISOR history - Social History Smoking Status: Current every day smoker Smokeless Tobacco Status: No Alcohol use: Reports: none Drug use: Reports: none Physical Exam - General Limitations: no limitations General appearance: alert Course Vital Signs Temperature 98.2 F 01/14/18 12:37 Pulse Rate 104 01/14/18 12:37 Respiratory Rate 18 01/14/18 12:37 Blood Pressure 158/88 01/14/18 12:37 O2 Sat by Pulse Oximetry 96 01/14/18 12:37 Temperature 98.2 F 01/14/18 12:45 Pulse Rate 95 01/14/18 14:30 Respiratory Rate 16 01/14/18 14:30 Blood Pressure 135/95 01/14/18 14:30 O2 Sat by Pulse Oximetry 98 01/14/18 14:30 Oxygen Delivery Oxygen Delivery Room Air Medical Decision Making - MDM Narrative Medical decision making narrative: 1252 hrs.: Patient in EKG performed, sinus tachycardia, rate 103, QRS is 93, QTC of 499, she has had PACs. She has some nonspecific T-wave inversion in inferior lateral leads. Comparison EKG she had done earlier this year shows no changes except for rate. Chest X-Ray 01/14/18 12:58 IMPRESSION: Pulmonary vascular congestion. No evidence of edema or focal infiltrate at this time D/ / Ernesto Hernandez MD / Ernesto Hernandez MD Interpreting Provider: Ernesto Hernandez MD 1415 hrs. With her hemoglobin and her potential history of GI bleeding. We like to keep her in the hospital. She did not really want to do this one to go home, we did talk with GI and they said the next scope tomorrow if she spent the night tonight. Sore and speak with hospitalist and she is in agreement with this plan. Impressions chronic renal insufficiency and end-stage renal disease with low hemoglobin rule out GI bleed. - Lab Data Result diagrams: 01/14/18 13:00 01/14/18 13:00 Lab Results 01/14/18 01/14/18 01/14/18 Range/Units 13:00 13:00 13:11 WBC 5.5 (4.3-11.1) K/mcL RBC 2.73 L (3.82-4.97) M/mcL Hgb 8.6 L (11.5-15.4) g/dL Hct 27.2 L (35.3-44.9) % MCV 99.6 (83.0-100.0) fL MCH 31.5 (28.0-33.3) pg MCHC 31.6 (31.6-35.5) g/dL RDW 16.4 H (11.5-14.5) % Plt Count 184 (140-400) K/mcL MPV 12.1 (9.4-12.4) fL Immature Gran % 0.5 (0-4) % Seg Neutrophils % 76.6 % Lymphocytes % 14.6 % Monocytes % 7.0 % Eosinophils % 0.9 % Basophils % 0.4 % Neutrophils # 4.2 (1.6-8.9) K/mcL Lymphocytes # 0.8 (0.6-4.6) K/mcL Monocytes # 0.4 (0.0-1.3) K/mcL Eosinophils # 0.1 (0.0-0.6) K/mcL Basophils # 0.0 (0.0-0.2) K/mcL Nucleated RBCs/100 WBC 0.9 H (0) /100 WBC Sodium 139 (136-145) mEq/L Potassium 3.6 (3.5-5.1) mEq/L Chloride 93 L (98-107) mEq/L Carbon Dioxide 36 H (23-29) mEq/L BUN 19 (6-20) mg/dL Creatinine 3.51 H (0.60-1.20) mg/dL Est GFR ( Amer) 17 L (> 60) Est GFR (Non-Af Amer) 14 L (> 60) BUN/Creatinine Ratio 5 L (6-26) Glucose 135 H (70-105) mg/dL Calculated Osmolality 292 (280-300) Calcium 9.2 (8.6-10.3) mg/dL Total Bilirubin 0.4 (0.3-1.0) mg/dL AST 17 (13-39) Units/L ALT 11 (7-52) Units/L Alkaline Phosphatase 104 (34-104) Units/L Troponin I 0.03 (< 0.04) ng/mL Serum Total Protein 7.6 (6.4-8.9) g/dL Albumin 4.3 (3.5-5.7) g/dL Globulin 3.3 (2.4-3.5) g/dL Albumin/Globulin Ratio 1.3 (1.1-2.2) Blood Type O POSITIVE Antibody Screen POSITIVE Antibody Identification Known Anti-c Attestation Statement - Attestation Attestation: This documentation is done with the assistance of Dragon dictation. Despite efforts made to ensure accuracy, there may be inaccuracies in geophysical data technician or spelling and typographical errors. I examined this patient and my medical decision-making was reviewed with the Resident Physician. I agree with the documented findings, disposition and treatment plan as described except to the extent set forth below. Patient was seen and evaluated by Dr. Naidu and myself, agree with his evaluation management plan, I supervised the care of the patient's stay. Patient was sent over from dialysis she dialyzes Wednesday and is to see Dr. Hastings and now sees a group at [facility]. She states that her hemoglobin was low at a said it has been low in the past she has not had a blood transfusion for some year she had a kidney transplant in the past requiring a transplant. However she said they noted her hemoglobin had been slowly dropping she would need a colonoscopy at some point she has had a history of dark-colored stools and has been on iron in the past but none for last month. She denies abdominal pain at this time but she says she does get some pain in her stomach after eating at times. She denies any chest pain. Said when she does get up and walk about she gets short of breath. But not at rest. She did go through full dialysis treatment today. We will check blood work on her and most likely she will need admission.
--- NOTE | 2018-01-14 13:09 | Emergency Department Note ---
Disposition Clinical Impression: End stage renal disease Anemia Qualifiers: Anemia type: unspecified type Qualified Code(s): D64.9 - Anemia, unspecified Disposition: Admitted As Inpatient Condition: Good Referrals: Demetra Ellison CNP [Primary Care Provider] - Forms: ED Satisfaction Letter General Adult HPI - General Chief complaint: ED Recheck/Abnormal Lab/Rx Stated complaint: low hgb Time Seen by Provider: 01/14/18 12:40 Source: patient Limitations: no limitations - History of Present Illness HPI Narrative: 52 year old woman on HD who sent to ED by dialysis after having drop in Hgb. She said she had hgb in 10's couple weeks ago and was told she was in 7's today before being sent to ED. She has been having black tarry stools for a number of months but has been on iron previously. She has not had iron since November but the black stools have persisted. She additionally has been experiencing fatigue for months, worsening SOB from baseline with ambulation but not rest, dizziness when standing, and intermittent DAO. She does have abdominal pain that she points as epigastric that is mainly postprandial with accompioning nausea. Occasional vomiting but denies hemetemesis, chest pain, diplopia, blurry vision , presyncope, syncope, or NSAID use. She last had a colonoscopy 5-6 years ago without abnormal findings. She has a hx of cardiac ablation for tachycardia and on diltiazem for same reason. Pain Scale: 0 - Related Data Home Medications Medication Instructions Recorded Confirmed Cetirizine HCl [All Day Allergy] 10 mg PO HS 03/20/16 09/01/17 Sertraline [Zoloft] 25 mg PO HS 03/20/16 09/01/17 Simvastatin [Zocor] 5 mg PO HS 03/20/16 09/01/17 Sodium Bicarbonate 650 mg PO TID 03/20/16 09/01/17 Zolpidem [Ambien] 10 mg PO HS 03/20/16 09/01/17 Albuterol Sulfate [Proair Hfa] 2 puff IH Q4H PRN 08/12/16 09/01/17 Calcium Acetate [Phos-LO] 4,002 mg PO TIDWM 08/12/16 09/01/17 Ondansetron HCl [Zofran] 4 - 8 mg PO DAILY PRN 08/12/16 09/01/17 Cholecalciferol (Vitamin D3) 10,000 unit PO DAILY 09/01/17 09/01/17 [Vitamin D3] Previous Rx's Medication Instructions Recorded Calcium Carbonate [Tums] 1,000 mg PO DAILY 7 Days #28 09/02/17 tab.chew Diltiazem CD (24hr) [Cardizem CD] 120 mg PO HS cap.er.24h 09/02/17 Allergies Allergy/AdvReac Type Severity Reaction Status Date / Time cephalexin [From Keflex] Allergy Hives Verified 09/01/17 09:07 All systems ED: reviewed and negative except as stated. Cardiovascular: Reports: dyspnea on exertion. Denies: chest pain, palpitations , edema, syncope Gastrointestinal: Reports: abdominal pain, nausea, vomiting, melena. Denies: hematemesis Endocrine: Reports: fatigue Past Medical History - Past Medical History Medical history: Reports: coronary artery disease, dialysis, hyperlipidemia, hypertension, peripheral artery disease, renal disease, SVT, thyroid disease, other Surgical history: Reports: cholecystectomy, hip replacement, orthopedic, other, thyroidectomy, transplant Psychiatric history: Reports: anxiety, depression STOCK [employer] FABRICATOR history: Reports: no STOCK [employer] F[employer]RICATOR history - Social History Smoking Status: Current every day smoker Smokeless Tobacco Status: No Alcohol use: Reports: none Drug use: Reports: none Physical Exam - General Limitations: no limitations General appearance: alert - Head Head exam: atraumatic, normocephalic, normal inspection - Eye Eye exam: Present: PERRL, EOMI, scleral icterus - ENT ENT exam: mucous membranes dry - Neck Neck exam: Present: normal inspection, trachea midline - Chest Chest inspection: Present: normal inspection, symmetric chest wall rise - Respiratory Respiratory exam: Present: other (diminished bilaterally ) - Cardiovascular Cardiovascular exam: Present: normal rhythm, tachycardia, normal heart sounds, + S1, +S2 - Abdominal Exam Abdominal exam: Present: soft, Non-Tender - Neurological Exam Neurological exam: Present: alert, oriented X3 - Psychiatric Psychiatric exam: Present: normal affect - Skin Skin exam: Present: warm, dry, other (jaundice ) Course Course Narrative: She presented from HD when CBC 2 days ago showed a drop in Hgb from 10's to 7' s. She said her dialysis hgb draws have slowly been decreasing. She additionally has increased BEAULIEU from baseline, fatigue for months, epigastric pain postprandial, dizziness with standing, and black tarry stools for many months, previously on iron but not since November. She is tachycardic on arrival with prior cardiac ablation for tachycardia and taking diltiazem for same reason. Jaundiced but indicates she is at baseline. 1310: EKG on arrival in sinus tach with some PAC's, nonspecific repolarization abnormalities, and ST depression. Will obtain cbc, cmp, troponin, cxr, and type and screen now in event PRBC needed. 1335: Hgb here 8.6, last hgb in our system 10/15/17 and was 12.9. Liver function normal, troponin neg, Cr elevated but is a MWF HD pt. CXR some pulm vasc congestion but not much different when comparing to study in 09/03. Last ECHO EF 60%. 1400: Spoke to GI about possibility of doing outpt colonoscopy cause she did not want to be admitted over the weekend. He said if we admit her she will be able to get colonoscopy tomorrow and requested her to be placed on clears diet in meantime. She was agreeable to this and will admit her to the hospitalist service for scope tomorrow in the setting of dropping hgb with black stools. 1420: Hospitalist service accepted admission and requested IV protonix be started. Vital Signs Temperature 98.2 F 01/14/18 12:37 Pulse Rate 104 01/14/18 12:37 Respiratory Rate 18 01/14/18 12:37 Blood Pressure 158/88 01/14/18 12:37 O2 Sat by Pulse Oximetry 96 01/14/18 12:37 Temperature 98.2 F 01/14/18 12:45 Pulse Rate 107 01/14/18 12:45 Respiratory Rate 20 01/14/18 12:45 Blood Pressure 153/86 01/14/18 12:45 O2 Sat by Pulse Oximetry 100 01/14/18 12:45 Oxygen Delivery Oxygen Delivery Room Air Medical Decision Making - Medical Records Medical records reviewed: Yes I reviewed the patient's medical records. - Lab Data Lab results reviewed: Yes I reviewed the patient's lab results. Result diagrams: 01/14/18 13:00 01/14/18 13:00 Lab Results 01/14/18 01/14/18 01/14/18 Range/Units 13:00 13:00 13:11 WBC 5.5 (4.3-11.1) K/mcL RBC 2.73 L (3.82-4.97) M/mcL Hgb 8.6 L (11.5-15.4) g/dL Hct 27.2 L (35.3-44.9) % MCV 99.6 (83.0-100.0) fL MCH 31.5 (28.0-33.3) pg MCHC 31.6 (31.6-35.5) g/dL RDW 16.4 H (11.5-14.5) % Plt Count 184 (140-400) K/mcL MPV 12.1 (9.4-12.4) fL Immature Gran % 0.5 (0-4) % Seg Neutrophils % 76.6 % Lymphocytes % 14.6 % Monocytes % 7.0 % Eosinophils % 0.9 % Basophils % 0.4 % Neutrophils # 4.2 (1.6-8.9) K/mcL Lymphocytes # 0.8 (0.6-4.6) K/mcL Monocytes # 0.4 (0.0-1.3) K/mcL Eosinophils # 0.1 (0.0-0.6) K/mcL Basophils # 0.0 (0.0-0.2) K/mcL Nucleated RBCs/100 WBC 0.9 H (0) /100 WBC Sodium 139 (136-145) mEq/L Potassium 3.6 (3.5-5.1) mEq/L Chloride 93 L (98-107) mEq/L Carbon Dioxide 36 H (23-29) mEq/L BUN 19 (6-20) mg/dL Creatinine 3.51 H (0.60-1.20) mg/dL Est GFR ( Amer) 17 L (> 60) Est GFR (Non-Af Amer) 14 L (> 60) BUN/Creatinine Ratio 5 L (6-26) Glucose 135 H (70-105) mg/dL Calculated Osmolality 292 (280-300) Calcium 9.2 (8.6-10.3) mg/dL Total Bilirubin 0.4 (0.3-1.0) mg/dL AST 17 (13-39) Units/L ALT 11 (7-52) Units/L Alkaline Phosphatase 104 (34-104) Units/L Troponin I 0.03 (< 0.04) ng/mL Serum Total Protein 7.6 (6.4-8.9) g/dL Albumin 4.3 (3.5-5.7) g/dL Globulin 3.3 (2.4-3.5) g/dL Albumin/Globulin Ratio 1.3 (1.1-2.2) Blood Type O POSITIVE Antibody Screen POSITIVE - Radiology Data Radiology results reviewed: Yes I reviewed the patient's radiology results.
[2018-01-14 13:23] LABS: Basophils % 0.4 %; Eosinophils # 0.1 K/mcL (0.0-0.6); Eosinophils % 0.9 %; Hematocrit 27.2 % (35.3-44.9); Hemoglobin 8.6 g/dL (11.5-15.4); Immature Granulocytes % 0.5 % (0-4); Lymphocytes # 0.8 K/mcL (0.6-4.6); Lymphocytes % 14.6 %; Mean Corpuscular HGB Conc 31.6 g/dL (31.6-35.5); Mean Corpuscular Hemoglobin 31.5 pg (28.0-33.3); Mean Corpuscular Volume 99.6 fL (83.0-100.0); Mean Platelet Volume 12.1 fL (9.4-12.4); Monocytes # 0.4 K/mcL (0.0-1.3); Neutrophils # 4.2 K/mcL (1.6-8.9); Nucleated Red Blood Cells 0.9 /100 WBC (0); Platelet Count 184 K/mcL (140-400); Red Blood Count 2.73 M/mcL (3.82-4.97); Red Cell Distribution Width 16.4 % (11.5-14.5); Segmented Neutrophils % 76.6 %
[2018-01-14 13:43] LABS: Troponin I 0.03 ng/mL (< 0.04)
[2018-01-14 13:44] LABS: Albumin 4.3 g/dL (3.5-5.7); Albumin/Globulin Ratio 1.3 (1.1-2.2); Bilirubin,Total 0.4 mg/dL (0.3-1.0); Calcium 9.2 mg/dL (8.6-10.3); Globulin 3.3 g/dL (2.4-3.5); Potassium 3.6 mEq/L (3.5-5.1); Total Protein 7.6 g/dL (6.4-8.9)
[2018-01-14] MEDS ORDERED: Pantoprazole 40 MG VIAL IVP ONE (14:41)
[2018-01-14] MEDS ORDERED: Naloxone 0.4 MG/ML INJ IVP PRN (17:30)
--- NOTE | 2018-01-14 17:35 | Internal Med History&Physical ---
Date of Encounter: 01/14/18 Time of Encounter: 17:27 Internal Medicine - H&P: HPI Chief complaint: low hemoglobin Admitted From: Home Plans for Post Hospital Care: Home History of present illness: Ms. Taylor is a 52 year old female with past medical history of HTN, HLD, ESRD on dialysis, focal glomerulosclerosis who presented to the ED due to recent finding of low hemoglobin at dialysis this afternoon. She has history of renal transplant in 1999 and it failed soon after. She was on chronic prednisone years ago and associated her past shoulder and hip fractures to it. She stopped taking prednisone for quite sometime but is unsure of the timeline. She was at her dialysis center today and was noted to have hemoglobin of 8.6 and was 7.7 two days prior but had received erythropoietin on Wednesday. Her baseline hemoglobin is 10 to 11. She noted dark black stool ongoing for the past 2 months and associated it to iron supplementation but noted since November she has not received any iron supplementation and continues to have black loose stool. She has 3 loose stools daily ongoing for two months as well. She also had associated nausea and emesis. The emesis is bilious in consistency and has been ongoing for the past two weeks. She has mid epigastric pain that worsens after oral intake. She had colonoscopy and EGD 5 to 6 years ago and she believes it was within normal limits. She denied using NSAIDS frequently and is not taking in anticoagulants. She denied fever, chills, shortness of breath, chest pain, paresthesis, blurry vision, or hematemesis. In the ED her vitals were stable. Her heart rate was 104 and blood pressure was 150/80. She had a chest xray at the ED and was found to have pulmonary vascular congestion. Her hemoglobin was 8.6, BUN was 19 and creatinine was 3.51 and her previous readings have been around 9. She received one dose of IV protonix and GI was consulted at the ED. Past Med Surg Social Fam HX - Past Medical History Medical history: coronary artery disease, dialysis, hyperlipidemia, hypertension , peripheral artery disease, renal disease, SVT, thyroid disease, other Additional medical history: HD fistula TYLER Psychiatric history: anxiety, depression - Past Surgical History Surgical History: cholecystectomy, hip replacement, orthopedic, other, thyroidectomy, transplant Additional surgical history: R kidney transplant, dialysis fistula removal and graft to LUE. - Social History Smoking Status: Current every day smoker Smokeless Tobacco Status: No Alcohol use: none Drug use: none - Family History Mother Living Status: Hx Family Endocrine Disorder: Yes (Type 2 DM) Father Living Status: Hx Family Cardiac Disorders: Yes (HTN) Hx Family Respiratory Disorders: Yes (COPD) Hx Family Cancer: Yes (Colon ca) Hx Family GI Disorders: Yes (colon cancer) Hx Family Endocrine Disorder: Yes (DM Type 2) Internal Medicine - H&P: Meds Cetirizine HCl [All Day Allergy] 10 mg PO HS 03/20/16 [History] Sertraline [Zoloft] 25 mg PO HS 03/20/16 [History] Simvastatin [Zocor] 5 mg PO HS 03/20/16 [History] Sodium Bicarbonate 650 mg PO TID 03/20/16 [History] Zolpidem [Ambien] 10 mg PO HS 03/20/16 [History] Albuterol Sulfate [Proair Hfa] 2 puff IH Q4H PRN 08/12/16 [History] Calcium Acetate [Phos-LO] 4,002 mg PO TIDWM 08/12/16 [History] Ondansetron HCl [Zofran] 4 - 8 mg PO DAILY PRN 08/12/16 [History] Cholecalciferol (Vitamin D3) [Vitamin D3] 10,000 unit PO DAILY 09/01/17 [History ] Calcium Carbonate [Tums] 1,000 mg PO DAILY 7 Days #28 tab.chew 09/02/17 [Rx] Diltiazem CD (24hr) [Cardizem CD] 120 mg PO HS cap.er.24h 09/02/17 [Rx] cloNIDine HCl [CloNIDine HCl] 0.1 mg PO DAILY PRN 01/14/18 [History] 3 Allergy/AdvReac Type Severity Reaction Status Date / Time cephalexin [From Keflex] Allergy Hives Verified 09/01/17 09:07 All Systems PM: A 10-system review of systems was performed and is negative for pertinent findings except as documented above in the HPI. - Constitutional Constitutional: weight gain (8 pounds), no chills, no fever(s), no falls, no weakness, no weight loss - EENT Eyes: no blurry vision, no change in vision Nose, mouth and throat: no dysphagia, no hoarseness - Cardiovascular Cardiovascular ROS IM: dyspnea, no chest pain, no orthopnea, no palpitations - Respiratory Respiratory: no cough, no wheezing, no chest congestion - Gastrointestinal Gastrointestinal: abdominal pain (mid epigastric ), loose stools, melena, vomiting (bilious, not currently), no coffee ground emesis, no diarrhea, no dysphagia, no hematemesis - Genitourinary Genitourinary: no hematuria, no pelvic pain - Musculoskeletal Musculoskeletal ROS IM: no joint swelling, no muscle weakness, no numbness, no tingling - Neurological Neurological ROS: headache(s) (chronic), no numbness, no paresthesias, no tingling, no weakness - Allergic/Immunologic Allergic/Immunologic: other (seasonal allergies ) - Constitutional Vitals: Temp Pulse Resp BP Pulse Ox 98.2 F 95 16 114/56 98 01/14/18 12:45 01/14/18 14:30 01/14/18 15:32 01/14/18 15:32 01/14/18 14:30 General appearance: Present: A&O X 3, pleasant, no acute distress, obese Exam: awake, alert and oriented to person, place and time - Head Head exam: Present: atraumatic - Eye Eye exam: Present: conjunctival injection, normal appearance, sclera anicteric - ENT ENT exam: Present: mucous membranes moist - Neck Neck exam general surgery: Present: full ROM, trachea midline - Respiratory Respiratory exam: Present: CTAB. Absent: rhonchi, stridor, wheezes - Cardiovascular Cardiovascular exam: Present: +S1, +S2, tachycardia - GI/Abdominal GI/Abdominal exam: Present: distended (mildly distended), normal bowel sounds, tenderness (mid epigastric region). Absent: guarding, hepatomegaly, rebound - Extremities Exam Extremities exam: Present: warm. Absent: calf tenderness, joint swelling, pedal edema, tenderness - Psychiatric Psychiatric exam: Present: normal affect, normal mood - Skin Skin exam: Present: dry, intact (healed scars on left upper arm) Internal Med - H&P Results - Labs CBC & Chem 7: 01/14/18 13:00 01/14/18 13:00 - Assessment and plan (1) GI bleed Current Visit: Yes Status: Acute Assessment and plan: Patient noted eliezer ongoing for the past 2 months. She is not taking NSAIDS or anticoagulants. Her hemoglobin normally is around 10 to 11 and was found to be 8.6 today and 7.7 two days ago. Likely etiology is gastric ulcer vs angiodysplasia vs peptic ulcer vs diverticulosis as she has noted worsening epigastric pain after oral intake and omeprazole daily has not relieved her pain. Plan: GI consult, any recommendations appreciated IV protonix 40 mg BID Avoid NSAIDs Clear liquids and possible plant for scope If hemoglobin drops below 7 or vitals change consider transfusion Qualifiers: GI bleed type/associated pathology: melena Qualified Code(s): K92.1 - Melena (2) Anemia Current Visit: Yes Status: Acute Assessment and plan: Patient presented with hemoglobin of 8.6 after receiving and was 7.7 two days ago for which she received erythropoeitin. Her MCV is 99.6 and RDW was 16.4, making iron deficiency a likely cause. Previous B12 and folate levels were withing normal limits in 2014. Her baseline hemoglobin is 10 to 11. She was receiving iron supplementation previously but stopped one month ago. Likely etiology is GI bleed vs chronic renal disease. She noted worsening epigastric pain after oral intake and omeprazole daily has not relieved her pain. Plan: Same as GI bleed Workup with iron studies Pending B12 and Folate Can transfuse if vital unstable and hemoglobin below 7 Qualifiers: Anemia type: unspecified type Qualified Code(s): D64.9 - Anemia, unspecified (3) End stage renal disease Current Visit: Yes Status: Acute Assessment and plan: Diagnosed with focal glomerulosclerosis in 1989. 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 She was started on chronic prednisone for the transplant which led to hip and shoulder fractures. She is on chronic dialysis-- Wednesday, Wednesday and Wednesday. Plan: Consult nephrology, any recommendations appreciated Avoid nephrotoxins Continue monitoring eletrolytes daily (4) HTN (hypertension) Current Visit: Yes Status: Acute Assessment and plan: History of hypertension, likely due to ESRD. She had an echo in August and her EF was 60%. Plan: Hold home medication IV hydralazine PRN if blood pressure above 160 Qualifiers: Hypertension type: unspecified Qualified Code(s): I10 - Essential (primary ) hypertension (5) HLD (hyperlipidemia) Current Visit: Yes Status: Acute Assessment and plan: History of hyperlipidemia Plan: Continue home medication, simvastatin 5 mg PO Qualifiers: Hyperlipidemia type: unspecified Qualified Code(s): E78.5 - Hyperlipidemia , unspecified (6) Tobacco use Current Visit: Yes Status: Acute Assessment and plan: History of tobacco use--smoking. She has 18 pack year history and currently smokes 1/2 pack of cigarettes per day. Plan: Patient declined nicotine patch (7) DVT prophylaxis Current Visit: Yes Status: Acute Assessment and plan: EPCDs due to current GI bleed - Time Spent With Patient Total time spent is greater than 50% in coordination of care (as documented) at patient's floor/unit and/or counseling patient: 25 - 35 minutes
[2018-01-14] MEDS ORDERED: Pantoprazole 40 MG VIAL IVP SCH (18:00)
--- NOTE | 2018-01-14 18:42 | Event Note ---
Date of Encounter: 01/14/18 Time of Encounter: 10:00 I have seen and examined this pt independently. I have discussed with resident physician Dr Ugarte regarding the management plan. Details plz refer resident H & P. 52F present to ER as low H/H and chronic melena for about 2 month, with chronic epigastric pain, which worsening after eating. Hx of ESRD on HD. Consider anemia and GI bleed cannot r/o. GI consult called by ER. Will closely monitor pt and pt may need scopes. Transfuse as needed. IV PPI placed.
[2018-01-14] MEDS: Pantoprazole 40 MG VIAL IVP SCH (19:20)
[2018-01-14] MEDS ORDERED: SODIUM CHLORIDE/NAHCO3/KCL/PEG 4,000 ML SOLN.RECON PO ONE (20:20)
[2018-01-14] MEDS ORDERED: Ondansetron 4 MG/2 ML VIAL IVP PRN (20:22)
[2018-01-15 04:56] LABS: Basophils % 0.1 %; Eosinophils # 0.1 K/mcL (0.0-0.6); Hematocrit 25.3 % (35.3-44.9); Hemoglobin 7.9 g/dL (11.5-15.4); Immature Granulocytes % 0.6 % (0-4); Lymphocytes # 1.1 K/mcL (0.6-4.6); Lymphocytes % 14.1 %; Mean Corpuscular HGB Conc 31.2 g/dL (31.6-35.5); Mean Corpuscular Hemoglobin 31.5 pg (28.0-33.3); Mean Corpuscular Volume 100.8 fL (83.0-100.0); Mean Platelet Volume 11.7 fL (9.4-12.4); Monocytes # 0.4 K/mcL (0.0-1.3); Monocytes % 5.3 %; Neutrophils # 6.2 K/mcL (1.6-8.9); Platelet Count 191 K/mcL (140-400); Red Blood Count 2.51 M/mcL (3.82-4.97); Red Cell Distribution Width 16.6 % (11.5-14.5); Segmented Neutrophils % 78.9 %
[2018-01-15 05:06] LABS: INR 1.2; Prothrombin Time 13.5 Seconds (9.4-12.1)
[2018-01-15 05:14] LABS: % Iron Saturation 16 % (15-50); Iron 64 mcg/dL (50-170); Transferrin 279 mg/dL (203-362)
[2018-01-15 05:15] LABS: Calcium 8.2 mg/dL (8.6-10.3); Magnesium 1.7 mg/dL (1.6-2.6); Phosphorous 3.4 mg/dL (2.7-4.5)
[2018-01-15 05:40] LABS: Folate 8.6 ng/mL (3.0-16.0)
[2018-01-15] MEDS: Pantoprazole 40 MG VIAL IVP SCH ×2 (06:05→17:05)
--- NOTE | 2018-01-15 10:31 | Anesthesia Evaluation PreOp ---
Date of Encounter: 01/15/18 Time of Encounter: 10:30 - Past History Planned Operation: Double Endo Cardiac History: HTN, Hyperlipidemia, Arrhythmia (SVT), Other (PAD CAD Anemia chronic disease) Pulmonary History: Smoker, COPD COLLAR PACKER History: Denies Any Significant HX Other Medical History: Renal (ESRD Dialyzed yesterday), Other (Anxiety Depression) Anesthesia History: No Prior Anesthetic Complications Alcohol Use: none Drug use: none Medications and Allergies Cetirizine HCl [All Day Allergy] 10 mg PO HS 03/20/16 [History] Sertraline [Zoloft] 25 mg PO HS 03/20/16 [History] Simvastatin [Zocor] 5 mg PO HS 03/20/16 [History] Sodium Bicarbonate 650 mg PO TID 03/20/16 [History] Zolpidem [Ambien] 10 mg PO HS 03/20/16 [History] Albuterol Sulfate [Proair Hfa] 2 puff IH Q4H PRN 08/12/16 [History] Calcium Acetate [Phos-LO] 4,002 mg PO TIDWM 08/12/16 [History] Ondansetron HCl [Zofran] 4 - 8 mg PO DAILY PRN 08/12/16 [History] Cholecalciferol (Vitamin D3) [Vitamin D3] 10,000 unit PO DAILY 09/01/17 [History ] Calcium Carbonate [Tums] 1,000 mg PO DAILY 7 Days #28 tab.chew 09/02/17 [Rx] Diltiazem CD (24hr) [Cardizem CD] 120 mg PO HS cap.er.24h 09/02/17 [Rx] cloNIDine HCl [CloNIDine HCl] 0.1 mg PO DAILY PRN 01/14/18 [History] 3 Allergy/AdvReac Type Severity Reaction Status Date / Time cephalexin [From Keflex] Allergy Hives Verified 09/01/17 09:07 - Meds/Allergy Pre-op Review Medications Reviewed: Yes Allergies Reviewed: Yes Beta Blockers on Current Med List: No Anesthesia Results - Labs 01/15/18 04:28 01/15/18 04:28 - Imaging EKG: report reviewed (ST) Additional studies: ECHO 2018 EF 60%, no pulm htn Anesthesia Exam O2 Sat Height 1.68 m Height 1.68 m Weight 88.5 kg Weight 88.5 kg O2 Sat by Pulse Oximetry 98 O2 Sat by Pulse Oximetry 97 O2 Sat by Pulse Oximetry 98 O2 Sat by Pulse Oximetry 96 O2 Sat by Pulse Oximetry 98 O2 Sat by Pulse Oximetry 98 O2 Sat by Pulse Oximetry 100 O2 Sat by Pulse Oximetry 96 Vital Signs Temp Pulse Resp BP Pulse Ox 98.2 F 104 18 158/88 96 01/14/18 12:37 01/14/18 12:37 01/14/18 12:37 01/14/18 12:37 01/14/18 12:37 Height: 5'6 Weight: 195 lbs NPO (# of Hours): MN Pain Scale: 0 - HEENT Pupil (Motor): Pupils equal, EOMI Mallampati: III Teeth: Normal Oral Opening: Less than or equal to 3 - COLLAR PACKER LOC: Oriented COLLAR PACKER Motor: Normal RUE, Normal LUE, Normal RLE, Normal LLE, Normal Face COLLAR PACKER Sensory: Normal: RUE, LUE, RLE, LLE, Face - Cardiac Rhythm: Regular Murmur: None JVD: No Carotid Bruit: No - Pulmonary Breath Sounds: bilateral Clear Respiratory Effort: Symmetrical Anesthesia Assess/Plan ASA Score: 4 (HTN CAD PAD ESRD on dialysis Anemia) Modified Lambert Scale for Level of Consciousness: Cooperative, oriented, and tranquil Anesthetic Plan: MAC Monitoring Plan: Standard Monitors Recovery Plan: Other (Discussed MAC, possible GA, agrees to proceed)
--- NOTE | 2018-01-15 10:46 | Internal Med Progress Note ---
<Rory Godfrey - Last Filed: 01/15/18 10:57> Hospitalist Progress Note - Encounter Date of Encounter: 01/15/18 Time of Encounter: 10:42 - Subjective Interval History: Ms. Taylor reports doing well this morning, abdominal pain is improved slightly , overnight had bowel prep and was having some dark blood in stools. Patient gets dialysis for ESRD MWF and is anuric. Left upper arm AV fistula graft with good bruit. Has some nausea without vomiting. Denies fevers, chills, sweats, lightheadedness, dizziness, changes in vision or hearing, vomiting, chest pain, palpitations, shortness of breath, cough, weakness, loss of sensation, or rash. - Exam Vitals: Temp Pulse Resp BP Pulse Ox 98.2 F 97 18 147/80 98 01/15/18 07:40 01/15/18 07:40 01/15/18 07:40 01/15/18 07:40 01/15/18 07:40 Exam: General: awake, alert and oriented x 4, no acute distress, answers questions appropriate. HEENT: moist mucus membranes, no lymphadenopathy CV: RRR, no murmurs Lungs: CTAB, no wheezes, rhonchi, or rales Abd: minimal left upper quad tenderness with deep palpation, no rebound or guarding, otherwise normal with normal bowel sounds, nondistended Ext: no edema, no cyanosis Msk: 5/5 bilaterally, moves all extremities skin: normal color, no diaphroesis, scars to left arm, left upper arm AV fistula graft with good bruit - Assessment and Plan (1) GI bleed Current Visit: Yes Status: Acute Assessment and Plan: Melena x 2 months Hb 7.9 this morning, 8.6 on arrival, baseline 10-11. Also some mild left upper quadrant abdominal pain -GI consulted, pending recommendations -Continue with IV protonix -Avoid NSAIDs -NPO this morning, may consider change in diet after gi eval/endoscopy -Consider transfusion if Hb <7, goal Hb 10-11 in ESRD. (2) Anemia Current Visit: Yes Status: Acute Assessment and Plan: Hb 7.9 this morning, 8.6 on arrival. Received EPO as outpatient due to ESRD. Anemia of chronic disease vs chronic blood loss anemia questionable -Continue per plan in assessment above. 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 Left upper arm AV fistula in place, good bruit -Nephro on board -Continue monitoring labs. (4) HTN (hypertension) Current Visit: Yes Status: Acute Assessment and Plan: Known history of hypertension Echo August 2017 with EF 60% Bp controlled IV hydralazine prn if sBP > 160. Holding home bp meds. (5) HLD (hyperlipidemia) Current Visit: Yes Status: Chronic Assessment and Plan: Known history of hld Continue home med for chronic disease management. (6) Tobacco use Current Visit: Yes Status: Acute Assessment and Plan: Tobacco use history, declines patch (7) DVT prophylaxis Current Visit: Yes Status: Acute Assessment and Plan: EPCDs DVT Prophylaxis: EPCDs - Time Spent with Patient Total time spent is greater than 50% in coordination of care (as documented) at patient's floor/unit and/or counseling patient: Internal Medicine: Result - Labs CBC & Chem 7: 01/15/18 04:28 01/15/18 04:28 Labs: Short CBC 01/15/18 Range/Units 04:28 WBC 7.9 (4.3-11.1) K/mcL Hgb 7.9 L (11.5-15.4) g/dL Hct 25.3 L (35.3-44.9) % Plt Count 191 (140-400) K/mcL Neutrophils # 6.2 (1.6-8.9) K/mcL BMP 01/15/18 04:28 Sodium 133 L Potassium 4.0 Chloride 90 L Carbon Dioxide 32 H BUN 31 H Creatinine 5.03 H Glucose 104 Calcium 8.2 L - ABG Interpretation ABG results: PT/INR, D-dimer PT 13.5 Seconds (9.4-12.1) H 01/15/18 04:28 Consult Discharge Plan - Plan Referrals: Demetra Ellison CNP [Primary Care Provider] - <Jeremy Venegas - Last Filed: 01/15/18 13:25> Hospitalist Progress Note - Encounter Date of Encounter: 01/15/18 - Exam Vitals: Temp Pulse Resp BP Pulse Ox 98.2 F 83 18 172/85 99 01/15/18 07:40 01/15/18 11:16 01/15/18 11:16 01/15/18 11:16 01/15/18 11:16 - Assessment and Plan (1) GI bleed Current Visit: Yes Status: Acute (2) Anemia Current Visit: Yes Status: Acute (3) End stage renal disease Current Visit: Yes Status: Acute (4) HTN (hypertension) Current Visit: Yes Status: Acute (5) HLD (hyperlipidemia) Current Visit: Yes Status: Chronic (6) DVT prophylaxis Current Visit: Yes Status: Acute (7) Tobacco use Current Visit: Yes Status: Acute - Time Spent with Patient Total time spent is greater than 50% in coordination of care (as documented) at patient's floor/unit and/or counseling patient: Internal Medicine: Result - Labs CBC & Chem 7: 01/15/18 04:28 01/15/18 04:28 Labs: Short CBC 01/15/18 Range/Units 04:28 WBC 7.9 (4.3-11.1) K/mcL Hgb 7.9 L (11.5-15.4) g/dL Hct 25.3 L (35.3-44.9) % Plt Count 191 (140-400) K/mcL Neutrophils # 6.2 (1.6-8.9) K/mcL BMP 01/15/18 04:28 Sodium 133 L Potassium 4.0 Chloride 90 L Carbon Dioxide 32 H BUN 31 H Creatinine 5.03 H Glucose 104 Calcium 8.2 L - ABG Interpretation ABG results: PT/INR, D-dimer PT 13.5 Seconds (9.4-12.1) H 01/15/18 04:28 - Attending Attestation I have seen and examined this pt. I have discussed with resident physician Dr Godfrey regarding the management plan. Agree with the documentation. <Jeremy Venegas - Last Filed: 01/15/18 13:25> (1) GI bleed Qualifiers: GI bleed type/associated pathology: melena Qualified Code(s): K92.1 - Melena (2) Anemia Qualifiers: Anemia type: unspecified type Qualified Code(s): D64.9 - Anemia, unspecified (4) HTN (hypertension) Qualifiers: Hypertension type: unspecified Qualified Code(s): I10 - Essential (primary) hypertension (5) HLD (hyperlipidemia) Qualifiers: Hyperlipidemia type: unspecified Qualified Code(s): E78.5 - Hyperlipidemia, unspecified
[2018-01-15] MEDS ORDERED: Iron Polysaccharide Complex 150 MG CAPSULE PO SCH (11:00)
--- NOTE | 2018-01-15 11:00 | Nephrology Consult Note ---
Date of Encounter: 01/15/18 Time of Encounter: 10:50 Assessment and Plan (1) Anemia Current Visit: Yes Status: Acute GI workup per primary team Iron studies noted Qualifiers: Anemia type: unspecified type Qualified Code(s): D64.9 - Anemia, unspecified (2) ESRD on dialysis Current Visit: Yes Status: Acute Next HD planned wednesday lytes stable (3) HTN (hypertension) Current Visit: Yes Status: Acute Qualifiers: Hypertension type: unspecified Qualified Code(s): I10 - Essential (primary ) hypertension History of Present Illness - Reason for Consult Consult date: 01/15/18 end stage renal disease Requesting physician: Patience Ugarte - History of Present Illness 52y o female with PMH of HTN, HLN, 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 19 years)admitted for low hgb despite being on EPO. Renal consulted for ESRD management. Last HD was wednesday, full treatment and uneventful. Pt seen and examined with no actually complaints. Pt reports have been receiving EPO and iv iron per usual but hgb noted dropping regardless. She reports dark stools for at least a couple months Past Med Surg Social Fam HX - Past Medical History Medical history: coronary artery disease, dialysis, hyperlipidemia, hypertension , peripheral artery disease, renal disease, SVT, thyroid disease, other Additional medical history: HD fistula TYLER Psychiatric history: anxiety, depression - Past Surgical History Surgical History: cholecystectomy, hip replacement, orthopedic, other, thyroidectomy, transplant Additional surgical history: R kidney transplant, dialysis fistula removal and graft to LUE. - Social History Smoking Status: Current every day smoker Packs per day: .5 Smokeless Tobacco Status: No Alcohol use: none Drug use: none - Family History Mother History Unknown: Yes Living Status: Hx Family Endocrine Disorder: Yes (Type 2 DM) Father History Unknown: Yes Living Status: Hx Family Cardiac Disorders: Yes (HTN) Hx Family Respiratory Disorders: Yes (COPD) Hx Family Cancer: Yes (Colon ca) Hx Family GI Disorders: Yes (colon cancer) Hx Family Endocrine Disorder: Yes (DM Type 2) Medications and Allergies Cetirizine HCl [All Day Allergy] 10 mg PO HS 03/20/16 [History] Sertraline [Zoloft] 25 mg PO HS 03/20/16 [History] Simvastatin [Zocor] 5 mg PO HS 03/20/16 [History] Sodium Bicarbonate 650 mg PO TID 03/20/16 [History] Zolpidem [Ambien] 10 mg PO HS 03/20/16 [History] Albuterol Sulfate [Proair Hfa] 2 puff IH Q4H PRN 08/12/16 [History] Calcium Acetate [Phos-LO] 4,002 mg PO TIDWM 08/12/16 [History] Ondansetron HCl [Zofran] 4 - 8 mg PO DAILY PRN 08/12/16 [History] Cholecalciferol (Vitamin D3) [Vitamin D3] 10,000 unit PO DAILY 09/01/17 [History ] Calcium Carbonate [Tums] 1,000 mg PO DAILY 7 Days #28 tab.chew 09/02/17 [Rx] Diltiazem CD (24hr) [Cardizem CD] 120 mg PO HS cap.er.24h 09/02/17 [Rx] cloNIDine HCl [CloNIDine HCl] 0.1 mg PO DAILY PRN 01/14/18 [History] 3 Allergy/AdvReac Type Severity Reaction Status Date / Time cephalexin [From Keflex] Allergy Hives Verified 09/01/17 09:07 Review of Systems All Systems review (narrative): All other systems (10) noted negative Constitutional: fatigue (admits) Cardiovascular: chest pain (denies) Respiratory: dyspnea (denies) Gastrointestinal: change in stool character (admits) Exam - Vital Signs Vital signs: Initial Vital Signs Temp Pulse Resp BP Pulse Ox 98.2 F 104 18 158/88 96 01/14/18 12:37 01/14/18 12:37 01/14/18 12:37 01/14/18 12:37 01/14/18 12:37 Vital Signs - Last 8 Hours Temp Pulse Resp BP Pulse Ox 01/15/18 07:40 98.2 F 97 18 147/80 98 01/15/18 04:10 98.9 F 92 16 132/65 97 Intake and Output 01/14/18 01/15/18 01/15/18 23:59 07:59 15:59 Intake Total 240 / 240 Balance 240 / 240 Intake: Oral 240 / 240 - General Appearance General appearance: well-developed, well-nourished EENT: ATNC, mucous membranes moist Neck: no JVD, supple Respiratory: clear Cardiology: no edema, normal S1, normal S2 - Dialysis Access Dialysis Vascular Access: Arteriovenous Fistula thrill: Yes bruit: Yes Gastrointestinal: no tenderness, no guarding Integumentary: warm and dry Neurologic: no focal deficit Musculoskeletal: no deformities Psychiatric: mood/affect appropriate, cooperative Results - Lab Results 01/16/18 03:36 01/16/18 03:36 Most recent lab results Calcium 8.2 mg/dL (8.6-10.3) L 01/15/18 04:28 Phosphorus 3.4 mg/dL (2.7-4.5) 01/15/18 04:28 Magnesium 1.7 mg/dL (1.6-2.6) 01/15/18 04:28 Consult Discharge Plan - Plan Referrals: Demetra Ellison CNP [Primary Care Provider] -
[2018-01-15] MEDS: 0.9 % Sodium Chloride 500 ML IVC SCH (11:20)
[2018-01-15] MEDS ORDERED: Lidocaine -MPF 2% 2 ML VIAL ONE (11:30)
[2018-01-15] MEDS ORDERED: Propofol 500 MG/50 ML INFUS..BTL ONE ×2 (11:30→12:26)
[2018-01-15] MEDS ORDERED: *HR* Propofol 200 MG/20 ML VIAL IVP ONE (12:08)
--- NOTE | 2018-01-15 12:49 | Anesthesia Evaluation Post Op ---
Date of Encounter: 01/15/18 Time of Encounter: 12:48 - Vital Signs Vital Signs: 1248: HR 74, sPO2 100%, BP 104/59, RR 16 - Lungs Lungs: Clear Ascult./Percussion - Airway Airway: Non-obstructed - Cardiovascular Regular Rate, Baseline Rhythm - Mental Status Mental Status: Alert & Oriented, Answers Appropriately - Pain Pain Scale: 0 Pain Scale used: Numeric (1 - 10) - Nausea Vomiting Nausea Vomiting: Not Present - Discharge PostOp Status: Transfer Patient to floor
[2018-01-15] MEDS: Acetaminophen 325 MG TABLET PO PRN (17:05)
[2018-01-16 04:06] LABS: Basophils % 0.3 %; Eosinophils # 0.1 K/mcL (0.0-0.6); Eosinophils % 1.7 %; Hematocrit 21.8 % (35.3-44.9); Hemoglobin 6.9 g/dL (11.5-15.4); Immature Granulocytes % 0.4 % (0-4); Lymphocytes # 1.2 K/mcL (0.6-4.6); Lymphocytes % 16.6 %; Mean Corpuscular HGB Conc 31.7 g/dL (31.6-35.5); Mean Corpuscular Hemoglobin 31.1 pg (28.0-33.3); Mean Corpuscular Volume 98.2 fL (83.0-100.0); Mean Platelet Volume 11.8 fL (9.4-12.4); Monocytes # 0.4 K/mcL (0.0-1.3); Monocytes % 5.7 %; Neutrophils # 5.6 K/mcL (1.6-8.9); Platelet Count 169 K/mcL (140-400); Red Blood Count 2.22 M/mcL (3.82-4.97); Red Cell Distribution Width 16.6 % (11.5-14.5); Segmented Neutrophils % 75.3 %
[2018-01-16 04:23] LABS: Calcium 7.4 mg/dL (8.6-10.3); Potassium 4.4 mEq/L (3.5-5.1)
[2018-01-16] MEDS: Pantoprazole 40 MG VIAL IVP SCH ×2 (05:54→17:33)
[2018-01-16] MEDS ORDERED: Lidocaine -MPF 2% 2 ML VIAL ONE (07:30)
[2018-01-16] MEDS ORDERED: Propofol 500 MG/50 ML INFUS..BTL ONE (07:31)
[2018-01-16] MEDS ORDERED: 0.9 % Sodium Chloride 500 ML IVC SCH (08:15)
[2018-01-16] MEDS ORDERED: *HR* EPINEPHrine 1 MG/ML AMPUL ONE (09:05)
[2018-01-16] MEDS: 0.9 % Sodium Chloride 500 ML IVC SCH ×2 (09:26→10:23)
--- NOTE | 2018-01-16 10:24 | Gastroenterology Consult Note ---
Date of Encounter: 01/15/18 Time of Encounter: 08:00 - Time Spent With Patient Total time spent is greater than 50% in coordination of care (as documented) at patient's floor/unit and/or counseling patient: GI History of Present Illness - Data of Consult Patient: new to practice Consult date: 01/15/18 Requesting Physician: Jeremy Venegas MD - Consult Narrative History of present illness: Ms. Taylor is a 52 year old female Past Med Surg Social Fam HX - Past Medical History Source: nursing notes reviewed Medical history: atrial fibrillation, coronary artery disease, dialysis, hyperlipidemia, hypertension, peripheral artery disease, renal disease, SVT, thyroid disease, other Additional medical history: HD fistula TYLER Psychiatric history: anxiety, depression - Past Surgical History Surgical History: cholecystectomy, hip replacement, orthopedic, other, thyroidectomy, transplant Additional surgical history: R kidney transplant, dialysis fistula removal and graft to LUE. - Social History Smoking Status: Current every day smoker Packs per day: .5 Smokeless Tobacco Status: No Alcohol use: none Drug use: none - Family History Mother History Unknown: Yes Living Status: Hx Family Endocrine Disorder: Yes (Type 2 DM) Father History Unknown: Yes Living Status: Hx Family Cardiac Disorders: Yes (HTN) Hx Family Respiratory Disorders: Yes (COPD) Hx Family Cancer: Yes (Colon ca) Hx Family GI Disorders: Yes (colon cancer) Hx Family Endocrine Disorder: Yes (DM Type 2) - Constitutional Vitals: Temp Pulse Resp BP Pulse Ox 98.5 F 90 19 163/79 96 01/16/18 07:34 01/16/18 08:07 01/16/18 08:07 01/16/18 08:07 01/16/18 08:07 Results - Labs CBC & Chem 7: 01/16/18 16:10 01/16/18 03:36 Labs: Last Result Calcium 7.4 mg/dL (8.6-10.3) L 01/16/18 03:36 Iron 64 mcg/dL (50-170) 01/15/18 04:28 % Saturation 16 % (15-50) 01/15/18 04:28 Transferrin 279 mg/dL (203-362) 01/15/18 04:28 Ferritin 574 ng/mL (10-120) H 01/15/18 04:28 Troponin I 0.03 ng/mL (< 0.04) 01/14/18 13:00 Vitamin B12 646 pg/mL (250-1100) 01/15/18 04:28 Folate 8.6 ng/mL (3.0-16.0) 01/15/18 04:28 Entire Visit Hgb 6.9 g/dL (11.5-15.4) L 01/16/18 03:36 Hct 21.8 % (35.3-44.9) L 01/16/18 03:36 PT 13.5 Seconds (9.4-12.1) H 01/15/18 04:28 Ferritin 574 ng/mL (10-120) H 01/15/18 04:28 Total Bilirubin 0.4 mg/dL (0.3-1.0) 01/14/18 13:00 AST 17 Units/L (13-39) 01/14/18 13:00 ALT 11 Units/L (7-52) 01/14/18 13:00 Folate 8.6 ng/mL (3.0-16.0) 01/15/18 04:28 - ABG ABG results: PT/INR, D-dimer PT 13.5 Seconds (9.4-12.1) H 01/15/18 04:28 Consult Discharge Plan - Plan Referrals: Demetra Ellison CNP [Primary Care Provider] -
--- NOTE | 2018-01-16 11:04 | Internal Med Progress Note ---
<Rory Godfrey - Last Filed: 01/16/18 15:45> Hospitalist Progress Note - Encounter Date of Encounter: 01/16/18 Time of Encounter: 11:07 - Subjective Interval History: Ms. Taylor reports doing well this morning, repeat colonoscopy was successful in removing polyps. Patient has not had stools and has no bnlood per rectum. Denies abdominal pain. Denies fevers, chills, sweats, lightheadedness, dizziness , changes in vision or hearing, vomiting, chest pain, palpitations, shortness of breath, cough, weakness, loss of sensation, or rash. - Exam Vitals: Temp Pulse Resp BP Pulse Ox 98.5 F 90 19 163/79 96 01/16/18 07:34 01/16/18 08:07 01/16/18 08:07 01/16/18 08:07 01/16/18 08:07 Exam: General: awake, alert and oriented x 4, no acute distress, answers questions appropriate. HEENT: moist mucus membranes, no lymphadenopathy CV: RRR, no murmurs Lungs: CTAB, no wheezes, rhonchi, or rales Abd: no tenderness, no rebound or guarding, otherwise normal with normal bowel sounds, nondistended Ext: no edema, no cyanosis Msk: 5/5 bilaterally, moves all extremities skin: normal color, no diaphroesis, scars to left arm, left upper arm AV fistula graft with good bruit - Assessment and Plan (1) GI bleed Current Visit: Yes Status: Acute Assessment and Plan: Melena x 2 months Hb 6.9 this morning, from 7.9 yesterday and 8.6 on arrival, baseline 10-11. GI recommends 2 Units transfused with dialysis, patient should get dialysis tomorrow. May consider earlier transfusion as Hb at 6.9 today. Endoscopy EGD revealed reflux esophagitis, gastritis, and normal early portions of small intestine. Biopsies were taken. Colonoscopy revealed 2 non bleeding polyps in mid sigmoid and ascending colon, nonbleeding internal hemorrhoids, and blood in colon. Was unable on 01/15/18 to remove polyps due to technical difficulties. Patient underwent repeat colonoscopy 01/16/18 revealing a polyp in proximal transverse colon with resection, polyp in distal sigmoid which was resected, and polyp in recto- sigmoid colon that was resected. -Continue with IV protonix -Avoid NSAIDs -Clear liquid diet, consider advancing as tolerated. -H/H q12h -Consider transfusion if Hb <7, goal Hb 10-11 in ESRD. -Plan to transfuse 2 Units pRBC in dialysis M if patient is not symptomatic at the Hb 6.9. (2) Anemia Current Visit: Yes Status: Acute Assessment and Plan: Hb 6.9 this morning, from 7.9 yesterday, and 8.6 on arrival. Receives EPO as outpatient due to ESRD. Anemia of chronic disease vs chronic blood loss anemia questionable -Continue per plan in assessment above. Consider 2 units pRBC transfusion with dialysis, will discuss with Nephro as dialysis planned for tomorrow. -Continue monitoring labs. 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 Left upper arm AV fistula in place, good bruit -Nephro on board -Continue monitoring labs. (4) HTN (hypertension) Current Visit: Yes Status: Acute Assessment and Plan: Known history of hypertension Echo August 2017 with EF 60% Bp controlled IV hydralazine prn if sBP > 160. Holding home bp meds. (5) HLD (hyperlipidemia) Current Visit: Yes Status: Chronic Assessment and Plan: Known history of hld Continue home med for chronic disease management. (6) Tobacco use Current Visit: Yes Status: Acute Assessment and Plan: Tobacco use history, declines patch (7) DVT prophylaxis Current Visit: Yes Status: Acute Assessment and Plan: EPCDs, Hb <7 at this time. DVT Prophylaxis: EPCDs - Time Spent with Patient Total time spent is greater than 50% in coordination of care (as documented) at patient's floor/unit and/or counseling patient: Internal Medicine: Result - Labs CBC & Chem 7: 01/16/18 03:36 01/16/18 03:36 Labs: Short CBC 01/16/18 Range/Units 03:36 WBC 7.5 (4.3-11.1) K/mcL Hgb 6.9 L (11.5-15.4) g/dL Hct 21.8 L (35.3-44.9) % Plt Count 169 (140-400) K/mcL Neutrophils # 5.6 (1.6-8.9) K/mcL BMP 01/16/18 03:36 Sodium 129 L Potassium 4.4 Chloride 88 L Carbon Dioxide 30 H BUN 39 H Creatinine 7.00 H Glucose 85 Calcium 7.4 L - ABG Interpretation ABG results: PT/INR, D-dimer PT 13.5 Seconds (9.4-12.1) H 01/15/18 04:28 Consult Discharge Plan - Plan Referrals: Demetra Ellison, [employer] ASSIST[employer] NAVIGATOR [Primary Care Provider] - <Jeremy Venegas - Last Filed: 01/16/18 16:41> Hospitalist Progress Note - Encounter Date of Encounter: 01/16/18 - Exam Vitals: Temp Pulse Resp BP Pulse Ox 98.9 F 81 19 159/79 99 01/16/18 16:38 01/16/18 16:38 01/16/18 16:38 01/16/18 16:38 01/16/18 16:38 - Assessment and Plan (1) GI bleed Current Visit: Yes Status: Acute (2) Anemia Current Visit: Yes Status: Acute (3) End stage renal disease Current Visit: Yes Status: Acute (4) HTN (hypertension) Current Visit: Yes Status: Acute (5) HLD (hyperlipidemia) Current Visit: Yes Status: Chronic (6) DVT prophylaxis Current Visit: Yes Status: Acute (7) Tobacco use Current Visit: Yes Status: Acute - Time Spent with Patient Total time spent is greater than 50% in coordination of care (as documented) at patient's floor/unit and/or counseling patient: Internal Medicine: Result - Labs CBC & Chem 7: 01/16/18 03:36 01/16/18 03:36 Labs: Short CBC 01/16/18 Range/Units 03:36 WBC 7.5 (4.3-11.1) K/mcL Hgb 6.9 L (11.5-15.4) g/dL Hct 21.8 L (35.3-44.9) % Plt Count 169 (140-400) K/mcL Neutrophils # 5.6 (1.6-8.9) K/mcL [facility] 01/16/18 03:36 Sodium 129 L Potassium 4.4 Chloride 88 L Carbon Dioxide 30 H BUN 39 H Creatinine 7.00 H Glucose 85 Calcium 7.4 L - ABG Interpretation ABG results: PT/INR, D-dimer PT 13.5 Seconds (9.4-12.1) H 01/15/18 04:28 - Attending Attestation I have seen and examined this pt independently. I have discussed with resident physician Dr Godfrey regarding management plan. Agree with the documentation. <Rory Godfrey - Last Filed: 01/16/18 15:45> (1) GI bleed Qualifiers: GI bleed type/associated pathology: melena Qualified Code(s): K92.1 - Melena (2) Anemia Qualifiers: Anemia type: unspecified type Qualified Code(s): D64.9 - Anemia, unspecified (4) HTN (hypertension) Qualifiers: Hypertension type: unspecified Qualified Code(s): I10 - Essential (primary) hypertension (5) HLD (hyperlipidemia) Qualifiers: Hyperlipidemia type: unspecified Qualified Code(s): E78.5 - Hyperlipidemia, unspecified <Jeremy Venegas - Last Filed: 01/16/18 16:41> (1) GI bleed Qualifiers: GI bleed type/associated pathology: melena Qualified Code(s): K92.1 - Melena (2) Anemia Qualifiers: Anemia type: unspecified type Qualified Code(s): D64.9 - Anemia, unspecified (4) HTN (hypertension) Qualifiers: Hypertension type: unspecified Qualified Code(s): I10 - Essential (primary) hypertension (5) HLD (hyperlipidemia) Qualifiers: Hyperlipidemia type: unspecified Qualified Code(s): E78.5 - Hyperlipidemia, unspecified
--- NOTE | 2018-01-16 16:27 | Nephrology Progress Note ---
Date of Encounter: 01/16/18 Time of Encounter: 13:00 - Assessment and Plan (1) Anemia Status: Acute Hgb noted at 6.9, ok to transfuse 1 unit prbcs, HD not necessary or indicated for this Continue GI recs Can give more transfusion with her HD session tomorrow Monitor hgb serially if needed but no signs of bleeding noted Qualifiers: Anemia type: unspecified type Qualified Code(s): D64.9 - Anemia, unspecified (2) ESRD on dialysis Status: Acute Next HD planned wednesday ly stable (3) HTN (hypertension) Status: Chronic Qualifiers: Hypertension type: unspecified Qualified Code(s): I10 - Essential (primary) hypertension Subjective Interval history: Pt seen and examined feels a little tired but otherwise no problems. Family at bedside. Interim noted. Objective - Vital Signs Vital signs: Vital Signs Temp Pulse Resp BP Pulse Ox 01/16/18 12:03 98.2 F 75 19 153/73 96 01/16/18 08:07 90 19 163/79 96 01/16/18 07:34 98.5 F 90 19 163/79 96 01/16/18 04:30 98.0 F 85 19 144/74 97 01/15/18 23:45 98.7 F 94 18 164/95 98 01/15/18 19:14 98.3 F 61 15 150/80 99 01/15/18 17:06 98.4 F 77 17 174/75 96 Intake and Output 01/16/18 01/16/18 01/16/18 07:59 15:59 23:59 Intake Total 600 / 600 Balance 600 / 600 Intake: IV Fluids 600 / 600 0.9 % Sodium Chloride 500 ML @ 600 / 600 50 mls/hr IVC .Q10H [facility] Rx#: [id number] Other: # Voids 1 - General Appearance General appearance: Present: well-developed, well-nourished EENT: Present: ATNC, mucous membranes moist Neck: Present: no JVD, supple Respiratory: Present: clear Cardiology: Present: no edema, normal S1, normal S2 Dialysis Vascular Access: Arteriovenous Fistula thrill: Yes bruit: Yes Gastrointestinal: Present: no tenderness, no guarding Integumentary: Present: warm and dry Neurologic: Present: no focal deficit Musculoskeletal: Present: no deformities Psychiatric: Present: mood/affect appropriate, cooperative - Lab 10/02/18 12:36 01/18/18 07:17 Most recent lab results Calcium 7.4 mg/dL (8.6-10.3) L 01/16/18 03:36 Phosphorus 3.4 mg/dL (2.7-4.5) 01/15/18 04:28 Magnesium 1.7 mg/dL (1.6-2.6) 01/15/18 04:28 Consult Discharge Plan - Plan Instructions: Gastrointestinal Bleeding (DC), Anemia (DC) Referrals: Demetra Ellison CNP [Primary Care Provider] - 01/24/18 1:00 pm (Please follow up as schedule..) Gennaro Lamar MD [Partnered Physician] - (web request 01/18/18 per GI office...) Prescriptions: Omeprazole [PriLOSEC] 40 mg PO DAILY 30 Days #30 cap
[2018-01-16 16:41] LABS: Hematocrit 23.2 % (35.3-44.9); Hemoglobin 7.4 g/dL (11.5-15.4)
[2018-01-17] MEDS: Simethicone 80 MG TAB.CHEW PO PRN ×2 (00:05→19:48)
[2018-01-17 03:53] LABS: Basophils % 0.1 %; Eosinophils # 0.1 K/mcL (0.0-0.6); Eosinophils % 0.9 %; Hematocrit 20.6 % (35.3-44.9); Hemoglobin 6.8 g/dL (11.5-15.4); Immature Granulocytes % 0.6 % (0-4); Mean Corpuscular Hemoglobin 31.9 pg (28.0-33.3); Mean Corpuscular Volume 96.7 fL (83.0-100.0); Monocytes # 0.4 K/mcL (0.0-1.3); Monocytes % 5.1 %; Neutrophils # 5.4 K/mcL (1.6-8.9); Platelet Count 145 K/mcL (140-400); Red Blood Count 2.13 M/mcL (3.82-4.97); Red Cell Distribution Width 16.6 % (11.5-14.5); Segmented Neutrophils % 78.3 %
[2018-01-17 04:11] LABS: Calcium 6.8 mg/dL (8.6-10.3); Potassium 4.5 mEq/L (3.5-5.1)
[2018-01-17] MEDS: Pantoprazole 40 MG VIAL IVP SCH ×2 (06:07→17:02)
[2018-01-17] MEDS ORDERED: 0.9 % Sodium Chloride 1,000 ML ONE (07:53)
[2018-01-17] MEDS ORDERED: 0.9 % Sodium Chloride 250 ML IVC PRN (08:54)
[2018-01-17] MEDS ORDERED: 0.9 % Sodium Chloride 1,000 ML PRIME SCH (09:00)
--- NOTE | 2018-01-17 12:39 | Nephrology Progress Note ---
Date of Encounter: 01/17/18 Time of Encounter: 11:00 - Assessment and Plan (1) Anemia Status: Acute GI workup per primary team Iron studies noted Hgb down at 6.8, will arrange transfusion pRBCs with HD today Qualifiers: Anemia type: unspecified type Qualified Code(s): D64.9 - Anemia, unspecified (2) ESRD on dialysis Status: Acute Continue HD with UF lytes stable except low sodium which should improve with UF (3) HTN (hypertension) Status: Chronic Stable Qualifiers: Hypertension type: unspecified Qualified Code(s): I10 - Essential (primary) hypertension Subjective Interval history: Pt seen and examined on HD still feels a little tired but otherwise no problems Objective - Vital Signs Vital signs: Vital Signs Temp Pulse Resp BP Pulse Ox 01/17/18 12:10 97.4 F L 79 156/86 01/17/18 11:55 97.1 F L 72 20 142/102 01/17/18 11:46 97.7 F 79 20 144/77 01/17/18 11:20 98.2 F 81 18 147/83 01/17/18 11:05 97.3 F L 89 16 134/74 01/17/18 09:41 96 01/17/18 07:09 98.5 F 80 16 164/81 96 01/17/18 04:25 98.8 F 84 18 149/64 98 01/17/18 00:07 98.3 F 82 17 166/75 97 01/16/18 19:21 99.0 F 80 17 159/83 95 Intake and Output 01/16/18 01/17/18 01/17/18 23:59 07:59 15:59 Intake Total 940 / 940 Balance 940 / 940 Intake: Oral 240 / 240 Blood Product 700 / 700 Rbcs Leuko Poor As-1 Unit 350 / 350 [id number] Rbcs Leuko Poor As-3 Ph Unit 350 / 350 [id number] Other: Meal Breakfast Percent of Meal Consumed 50% Weight 92.249 kg Patient Weight 01/17/18 23:59 Weight 92.249 kg - General Appearance General appearance: Present: well-developed, well-nourished EENT: Present: ATNC, mucous membranes moist Neck: Present: no JVD, supple Respiratory: Present: clear Cardiology: Present: no edema, normal S1, normal S2 Dialysis Vascular Access: Arteriovenous Fistula thrill: Yes bruit: Yes Gastrointestinal: Present: no tenderness, no guarding Integumentary: Present: warm and dry Neurologic: Present: no focal deficit Musculoskeletal: Present: no deformities Psychiatric: Present: mood/affect appropriate, cooperative - Lab 01/18/18 12:36 01/18/18 07:17 Most recent lab results Calcium 6.8 mg/dL (8.6-10.3) L 01/17/18 03:41 Phosphorus 3.4 mg/dL (2.7-4.5) 01/15/18 04:28 Magnesium 1.7 mg/dL (1.6-2.6) 01/15/18 04:28 Consult Discharge Plan - Plan Instructions: Gastrointestinal Bleeding (DC), Anemia (DC) Referrals: Demetra Ellison CNP [Primary Care Provider] - 01/24/18 1:00 pm (Please follow up as schedule..) Gennaro Lamar MD [Partnered Physician] - (web request 01/18/18 per GI office...) Prescriptions: Omeprazole [PriLOSEC] 40 mg PO DAILY 30 Days #30 cap
[2018-01-17 12:52] LABS: Magnesium 1.7 mg/dL (1.6-2.6)
--- NOTE | 2018-01-17 15:19 | Electrocardiograph Report ---
[place] [id number] Test Date: 2018-01-14 Pat Name: Katlyn Taylor Department: [id number] Room: 2A37 Gender: F [employer]: : 1965 Requested By: Jeremy Venegas Order Number: [id number] Reading MD: Artur Forman Measurements Intervals [place] Rate: 103 P: 69 WA: 171 QRS: 65 QRSD: 93 T: 94 QT: 381 QTc: 499 Interpretive Statements Sinus tachycardia Atrial premature complex Nonspecific ST-T changes Electronically Signed On 01-17-2018 15:17:35 EDT by Artur Forman
[2018-01-17] MEDS ORDERED: cloNIDine HCl 0.1 MG TABLET PO PRN (15:22)
[2018-01-17 16:12] LABS: Hematocrit 30.5 % (35.3-44.9)
[2018-01-17 16:22] LABS: Hemoglobin 10.3 g/dL (11.5-15.4)
--- NOTE | 2018-01-17 16:23 | Internal Med Progress Note ---
<Patience Ugarte - Last Filed: 01/17/18 16:19> Hospitalist Progress Note - Encounter Date of Encounter: 01/17/18 Time of Encounter: 10:00 - Subjective Interval History: Ms. Taylor was seen at bedside this morning. She had no events overnight. Her vitals remained stable. She was comfortable in bed. She complained of ongoing dark stool this morning. Her hemoglobin was 6.8 this morning and she complained of less energy. She ate breakfast this morning and was able to tolerate her diet. She complained of some muscle cramps in her hands. She denied fever, chills, nausea and emesis. - Exam Vitals: Temp Pulse Resp BP Pulse Ox 97.9 F 79 18 168/90 96 01/17/18 14:45 01/17/18 12:55 01/17/18 14:45 01/17/18 14:45 01/17/18 09:41 Exam: Constitutional: Alert, in no acute distress HEENT: Normocephalic, atraumatic, moist mucus membrane Heart: Normal, regular rate and rhythm, no murmurs Lungs: lungs clear and equal bilaterally Abdomen: Soft, mildly distended, nontender Extremities: No edema, no clubbing; Skin: Skin warm and dry, no lesions, no rashes, no jaundice Psych: thought content congruent, appropriate affect Neurological Alert and oriented x 3 - Assessment and Plan (1) GI bleed Current Visit: Yes Status: Acute Assessment and Plan: Patient noted eliezer ongoing for the past 2 months. She is not taking NSAIDS or anticoagulants. Her hemoglobin normally is around 10 to 11 and was found to be 6.8 today and 10.3 two days ago. Likely etiology is gastric ulcer vs angiodysplasia vs peptic ulcer vs diverticulosis. She underwent EGD which did not show any site of bleed. Colonoscopy was a poor prep. Plan: GI consult, appreciate any recommendations Will have outpatient GI colonoscopy in 3 weeks IV protonix 40 mg BID Avoid NSAIDs Progress diet S/P 2 units of transfusion If hemoglobin drops below 7 or vitals change consider transfusion (2) Anemia Current Visit: Yes Status: Acute Assessment and Plan: Her baseline hemoglobin is 10 to 11. She was receiving iron supplementation previously but stopped one month ago. Her B12 and folate are within normal liits. Likely etiology is GI bleed vs chronic renal disease. 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 She was started on chronic prednisone for the transplant which led to hip and shoulder fractures. She is on chronic dialysis-- Wednesday, Wednesday and Wednesday. Hyponatremic this morning with sodium fo 124, was awake, alert and oriented and denied weakness. Plan: S/P dialysis today Consult nephrology, any recommendations appreciated Avoid nephrotoxins Continue monitoring electrolytes daily BMP tomorrow (4) HTN (hypertension) Current Visit: Yes Status: Acute Assessment and Plan: History of hypertension, likely due to ESRD. She had an echo in August and her EF was 60%. Plan: Continue home cardizem IV hydralazine PRN if blood pressure above 160 (5) HLD (hyperlipidemia) Current Visit: Yes Status: Chronic Assessment and Plan: History of hyperlipidemia Plan: Continue home medication, simvastatin 5 mg PO (6) DVT prophylaxis Current Visit: Yes Status: Acute Assessment and Plan: EPCDs due to current GI bleed (7) Tobacco use Current Visit: Yes Status: Acute Assessment and Plan: History of tobacco use--smoking. She has 18 pack year history and currently smokes 1/2 pack of cigarettes per day. Plan: Patient declined nicotine patch DVT Prophylaxis: EPCDs - Time Spent with Patient Total time spent is greater than 50% in coordination of care (as documented) at patient's floor/unit and/or counseling patient: 25 - 35 minutes Plan of Care Discussed with: patient Internal Medicine: Result - Labs CBC & Chem 7: 01/17/18 03:41 01/17/18 03:41 Labs: Short CBC 01/17/18 Range/Units 03:41 WBC 6.9 (4.3-11.1) K/mcL Hgb 6.8 L (11.5-15.4) g/dL Hct 20.6 L (35.3-44.9) % Plt Count 145 (140-400) K/mcL Neutrophils # 5.4 (1.6-8.9) K/mcL BMP 01/17/18 03:41 Sodium 124 L Potassium 4.5 Chloride 83 L Carbon Dioxide 26 BUN 48 H Creatinine 8.64 H Glucose 98 Calcium 6.8 L - ABG Interpretation ABG results: PT/INR, D-dimer PT 13.5 Seconds (9.4-12.1) H 01/15/18 04:28 Consult Discharge Plan - Plan Referrals: Demetra Ellison CNP [Primary Care Provider] - <Jeremy Venegas - Last Filed: 01/17/18 16:46> Hospitalist Progress Note - Encounter Date of Encounter: 01/17/18 - Exam Vitals: Temp Pulse Resp BP Pulse Ox 99.3 F 98 18 162/92 96 01/17/18 16:23 01/17/18 16:23 01/17/18 16:23 01/17/18 16:23 01/17/18 16:23 - Assessment and Plan (1) GI bleed Current Visit: Yes Status: Acute (2) Anemia Current Visit: Yes Status: Acute (3) End stage renal disease Current Visit: Yes Status: Acute (4) HTN (hypertension) Current Visit: Yes Status: Acute (5) HLD (hyperlipidemia) Current Visit: Yes Status: Chronic (6) DVT prophylaxis Current Visit: Yes Status: Acute (7) Tobacco use Current Visit: Yes Status: Acute - Time Spent with Patient Total time spent is greater than 50% in coordination of care (as documented) at patient's floor/unit and/or counseling patient: Internal Medicine: Result - Labs CBC & Chem 7: 01/17/18 15:55 01/17/18 03:41 Labs: Short CBC 01/17/18 01/17/18 Range/Units 03:41 15:55 WBC 6.9 (4.3-11.1) K/mcL Hgb 6.8 L 10.3 L D (11.5-15.4) g/dL Hct 20.6 L 30.5 L (35.3-44.9) % Plt Count 145 (140-400) K/mcL Neutrophils # 5.4 (1.6-8.9) K/mcL BMP 01/17/18 03:41 Sodium 124 L Potassium 4.5 Chloride 83 L Carbon Dioxide 26 BUN 48 H Creatinine 8.64 H Glucose 98 Calcium 6.8 L - ABG Interpretation ABG results: PT/INR, D-dimer PT 13.5 Seconds (9.4-12.1) H 01/15/18 04:28 - Attending Attestation I have seen and examined this pt independently. I have discussed with resident physician Dr Ugarte regarding the management plan. Agree with the documentation. <Patience Ugarte - Last Filed: 01/17/18 16:19> (1) GI bleed Qualifiers: GI bleed type/associated pathology: melena Qualified Code(s): K92.1 - Melena (2) Anemia Qualifiers: Anemia type: unspecified type Qualified Code(s): D64.9 - Anemia, unspecified (4) HTN (hypertension) Qualifiers: Hypertension type: unspecified Qualified Code(s): I10 - Essential (primary) hypertension (5) HLD (hyperlipidemia) Qualifiers: Hyperlipidemia type: unspecified Qualified Code(s): E78.5 - Hyperlipidemia, unspecified <Jeremy Venegas - Last Filed: 01/17/18 16:46> (1) GI bleed Qualifiers: GI bleed type/associated pathology: melena Qualified Code(s): K92.1 - Melena (2) Anemia Qualifiers: Anemia type: unspecified type Qualified Code(s): D64.9 - Anemia, unspecified (4) HTN (hypertension) Qualifiers: Hypertension type: unspecified Qualified Code(s): I10 - Essential (primary) hypertension (5) HLD (hyperlipidemia) Qualifiers: Hyperlipidemia type: unspecified Qualified Code(s): E78.5 - Hyperlipidemia, unspecified
[2018-01-17] MEDS: Calcium Acetate 667 MG CAPSULE PO SCH (17:02)
[2018-01-17] MEDS ORDERED: Diltiazem CD (24hr) 120 MG CAPSULE PO SCH (21:00)
[2018-01-17] MEDS ORDERED: Loratadine 10 MG TABLET PO SCH (21:00)
[2018-01-17] MEDS: Acetaminophen 325 MG TABLET PO PRN (22:28)
[2018-01-18] MEDS: Pantoprazole 40 MG VIAL IVP SCH (05:19)
[2018-01-18 08:22] LABS: Basophils % 0.2 %; Eosinophils % 0.9 %; Hematocrit 27.5 % (35.3-44.9); Hemoglobin 9.1 g/dL (11.5-15.4); Immature Granulocytes % 0.2 % (0-4); Lymphocytes # 0.7 K/mcL (0.6-4.6); Lymphocytes % 15.2 %; Mean Corpuscular HGB Conc 33.1 g/dL (31.6-35.5); Mean Corpuscular Hemoglobin 31.4 pg (28.0-33.3); Mean Corpuscular Volume 94.8 fL (83.0-100.0); Mean Platelet Volume 12.1 fL (9.4-12.4); Monocytes # 0.4 K/mcL (0.0-1.3); Monocytes % 7.7 %; Neutrophils # 3.6 K/mcL (1.6-8.9); Platelet Count 148 K/mcL (140-400); Red Cell Distribution Width 17.2 % (11.5-14.5); Segmented Neutrophils % 75.8 %
[2018-01-18 08:43] LABS: Calcium 7.6 mg/dL (8.6-10.3); Potassium 3.9 mEq/L (3.5-5.1)
[2018-01-18] MEDS ORDERED: Cholecalciferol (D-3) 1,000 UNIT TABLET PO SCH (09:00)
[2018-01-18] MEDS: Calcium Acetate 667 MG CAPSULE PO SCH ×2 (09:49→11:44)
[2018-01-18 10:56] VITALS: BP 158/83
[2018-01-18 12:50] LABS: Hematocrit 30.7 % (35.3-44.9); Hemoglobin 9.9 g/dL (11.5-15.4)
--- NOTE | 2018-01-18 14:00 | Discharge Summary ---
<Patience Ugarte - Last Filed: 01/18/18 13:30> - NOTES TO OUTPATIENT PROVIDER Notes to Outpatient Provider: Ms. Taylor presented on 01/14/18 after completing her dialysis at her dialysis center and was noted to have low hemoglobin. At presentation she was found to have hemoglobin of 8.6. She was hemodynamically stable. GI was consulted. EGD showed esophagitis and concern for gastroparesis due to gastric content in the stomach. She has pathology pending from biopsy during the EGD that needs followed up outpatient. Colonoscopy showed some blood in the colon and two polyps due to technical malfunction polyps could not be removed and a follow up scope showed poor bowel prep. During her stay she required total of 4 units of transfusion. The past 24 hours her hemoglobin has remained stable. Additionally, her blood pressure was high normal and may require some outpatient antihypertensive medications. She also complained of left ear fullness and otoscoppic exam was normal. She is urged to use Zyrtec for allergies as she stated she has seasonal allergies. She will be discharged with omeprazole 40 mg daily. She is scheduled to have outpatient colonoscopy in 2 weeks. Orders not resulted at time of discharge: Biopsy from EGD Date of Encounter: 01/18/18 Time of Encounter: 13:30 - Discharge Diagnosis (1) GI bleed Priority: Primary Status: Resolved Qualifiers: GI bleed type/associated pathology: melena Qualified Code(s): K92.1 - Melena (2) Anemia Priority: Secondary Status: Chronic Qualifiers: Anemia type: unspecified type Qualified Code(s): D64.9 - Anemia, unspecified (3) End stage renal disease Priority: Secondary Status: Chronic (4) HTN (hypertension) Priority: Secondary Status: Chronic Qualifiers: Hypertension type: unspecified Qualified Code(s): I10 - Essential (primary ) hypertension (5) HLD (hyperlipidemia) Priority: Secondary Status: Chronic Qualifiers: Hyperlipidemia type: unspecified Qualified Code(s): E78.5 - Hyperlipidemia , unspecified (6) DVT prophylaxis Priority: Secondary Status: Resolved (7) Tobacco use Priority: Secondary Status: Chronic Hospital course: Ms. Taylor is a 58 year old female with past medical history of HTN, HLD, ESRD on dialysis due to focal glomerulosclerosis who presented to the ED due to recent finding of low hemoglobin at her dialysis. At the dialysis center on 01/12 she was found to have hemoglobin of 7.7 and received erythropoietin at that time at her dialysis center. At presentation on 01/14 her hemoglobin was 8.6. Her blood pressure was noted to be 158/88 and heart rate was 104, oxygen saturation on room air was 96%. She complained of black stools ongoing for two months and had stopped taking iron since November. She also had epigastric pain at presentation. GI was consulted and her hemoglobin was closely monitored. She was started on 40 mg IV protonix BID. On 01/16 her hemoglobin was 6.9 and received two units of blood transfusion. Her EGD did not show any evidence of bleeding but showed low grade esophagitis, mild inflammation in the stomach, biopsies were taken and pathology results are pending. Also, gastroparesis was suggested as there was retained gastric content. Colonoscopy was conducted and showed nonbleeding internal hemorrhoids. Due to technical issues the polyps could not be removed. A repeat colonoscopy was done the following day and noted to have blood in the colon but due to poor prep the polyps could not be removed. On 01/17 she was noted to still have hemoglobin of 6.8 and after two more units of blood transfusion she went up to 10.3. On 01/17 her dark stools had resolved. Her hemoglobin was monitored and stayed at 9.1 (after dialysis) to 9.9. She has outpatient GI follow up for a follow up colonoscopy to remove the polyps. She also complained of some left ear fullness and otoscopic exam did not show any sign of infection, she has allergies and is asked to continue Zyrtec outpatient which she stated tends to help her allergies and should have her posterior left auricular lymphadenopathy re-evaluated outpatient after her allergy symptoms resolve. Her blood pressure was borderline elevated and had a headache associated with it she is on clonidine at home and may require different outpatient antihypertensive regimen. Discharge discussed with: patient - Time Spent with Patient Total time spent providing and/or coordinating discharge services: Less than 30 minutes - Discharge Medications Prescriptions: Omeprazole [PriLOSEC] 40 mg PO DAILY 30 Days #30 cap Home Medications: Cetirizine HCl [All Day Allergy] 10 mg PO HS 03/20/16 [History] Sertraline [Zoloft] 25 mg PO HS 03/20/16 [History] Simvastatin [Zocor] 5 mg PO HS 03/20/16 [History] Sodium Bicarbonate 650 mg PO TID 03/20/16 [History] Zolpidem [Ambien] 10 mg PO HS 03/20/16 [History] Albuterol Sulfate [Proair Hfa] 2 puff IH Q4H PRN 08/12/16 [History] Calcium Acetate [Phos-LO] 4,002 mg PO TIDWM 08/12/16 [History] Ondansetron HCl [Zofran] 4 - 8 mg PO DAILY PRN 08/12/16 [History] Cholecalciferol (Vitamin D3) [Vitamin D3] 10,000 unit PO DAILY 09/01/17 [History ] Calcium Carbonate [Tums] 1,000 mg PO DAILY 7 Days #28 tab.chew 09/02/17 [Rx] Diltiazem CD (24hr) [Cardizem CD] 120 mg PO HS cap.er.24h 09/02/17 [Rx] cloNIDine HCl [CloNIDine HCl] 0.1 mg PO DAILY PRN 01/14/18 [History] Omeprazole [PriLOSEC] 40 mg PO DAILY 30 Days #30 cap 01/18/18 [Rx] Allergies/Adverse Reactions: 3 Allergy/AdvReac Type Severity Reaction Status Date / Time cephalexin [From Keflex] Allergy Hives Verified 09/01/17 09:07 Date of admission: 01/16/18 16:47 Primary care physician: Demetra Ellison, Consults: 01/17/18 09:15 Consult to Dialysis [CONS] ONCE Discharging clinician: Patience Ugarte Anticipated date of discharge: 01/18/18 - Constitutional Vitals: Temp Pulse Resp BP Pulse Ox 97.8 F 89 16 158/83 95 01/18/18 10:52 01/18/18 10:52 01/18/18 10:52 01/18/18 10:52 01/18/18 10:52 General appearance: Present: A&O X 3, pleasant, no acute distress, obese Exam: Constitutional: Alert, in no acute distress HEENT: Normocephalic, atraumatic, moist mucus membrane, tympanic membrane intact and clear Heart: Normal, regular rate and rhythm, no murmurs Lungs: lungs clear and equal bilaterally Abdomen: Soft, mildly distended, nontender Extremities: No edema, no clubbing; Skin: Skin warm and dry, no lesions, no rashes, no jaundice Psych: thought content congruent, appropriate affect Neurological Alert and oriented x 3 - Head Head exam: Present: atraumatic, normocephalic - Eye Eye exam: Present: normal appearance. Absent: conjunctival injection - ENT ENT exam: Present: mucous membranes moist, normal external ear exam, normal oropharynx, TM's normal bilaterally - Neck Neck exam general surgery: Present: full ROM, tenderness (at left posterior auricular area) - Respiratory Respiratory exam: Present: CTAB. Absent: rhonchi, stridor, wheezes - Cardiovascular Cardiovascular exam: Present: RRR, +S1, +S2 - GI/Abdominal GI/Abdominal exam: Present: normal bowel sounds, soft. Absent: firm, rebound, rigid - Extremities Exam Extremities exam: Present: full ROM, warm. Absent: pedal edema - Neurological Exam Neurological exam: Present: alert, altered, oriented X3 - Skin Skin exam: Present: dry, intact, warm - Patient Status Disposition: Home, Self-Care Condition: Good Overall status at discharge: patient is progressing back to baseline - Discharge Instructions Instructions: Gastrointestinal Bleeding (DC), Anemia (DC) Follow Up With: Demetra Ellison CNP [Primary Care Provider] - 01/24/18 1:00 pm (Please follow up as schedule..) Gennaro Lamar MD [Partnered Physician] - (web request 01/18/18 per GI office... ) - Diet and Activity Activity: increase activity as tolerated Diet: other (renal diet) - VTE Documentation of Mechanical Device: Intermittent pneumatic compression device <Ana Motta - Last Filed: 01/18/18 16:25> Date of Encounter: 01/18/18 - Discharge Diagnosis (1) GI bleed Status: Resolved Qualifiers: GI bleed type/associated pathology: melena Qualified Code(s): K92.1 - Melena (2) Anemia Status: Chronic Qualifiers: Anemia type: unspecified type Qualified Code(s): D64.9 - Anemia, unspecified (3) End stage renal disease Status: Chronic (4) HTN (hypertension) Status: Chronic Qualifiers: Hypertension type: unspecified Qualified Code(s): I10 - Essential (primary ) hypertension (5) HLD (hyperlipidemia) Status: Chronic Qualifiers: Hyperlipidemia type: unspecified Qualified Code(s): E78.5 - Hyperlipidemia , unspecified (6) DVT prophylaxis Status: Resolved (7) Tobacco use Status: Chronic Hospital course: Ms. Taylor is a 52 year old female - Time Spent with Patient Total time spent providing and/or coordinating discharge services: Date of admission: 01/16/18 16:47 Primary care physician: Demetra Ellsion, Consults: 01/17/18 09:15 Consult to Dialysis [CONS] ONCE - Constitutional Vitals: Temp Pulse Resp BP Pulse Ox 97.8 F 89 16 158/83 95 01/18/18 10:52 01/18/18 10:52 01/18/18 10:52 01/18/18 10:52 01/18/18 10:52 - Patient Status Overall status at discharge: patient is progressing back to baseline - Attending Attestation I examined this patient and my medical decision-making was reviewed with the Resident Physician. I agree with the documented findings, disposition and treatment plan as described except to the extent set forth below/and addl details below Ms Taylor was admitted for acute on chronic anemia identified at HD. GI was consulted and she had cscope and egd with results as noted above. Hgb has now remained stable over last 24 hrs. She will fu with gi outpt, with discharge on PPI for esophagitis, repeat cscope due to poor prep and polyp removal as noted above in 2 weeks. Pt independently seen and examined Overall feeling well, no cp, sob, fatigue, presyncope. Brown soft bm, no brbpr, melena or hematochezia at this time. Eager for dc to home. BP elevated this am and mejia but no vision changes or chest pain. gen- alert, awake,appears stated age, nad eyes- pupils equal round , no conjunctival pallor cv- reg rate and rhythm, normal s1,s2, no murmurs appreciated lungs- ctabl, no wheezing, rhonchi or crackles abd- soft, non tender, non distended, + bs skin- no pallor Acute on chronic anemia, stable, 2/2 GIB -esophagitis on egd, mild gastric inflammation and bx taken, polyps and non bleeding hemorrhoids and mucosal tear of the sigmoid spanned with clips on cscope -follow up with gi for repeat scope and further management Incidental GI finding on EGD with concern for possible gastroparesis- she may fu outpt with pcp and gi as scheduled for further evaluation HTN with elevated BPs, meds not advanced due to gib with prbcs required this admission, stable at dc onhome med, fu with pcp outpt for further monitoring and management dc to home in stable condition
== END 2018-01-18 15:10 | disposition home or self-care (01) | DRG 377 ==
LOC: 2ANU 12:33 → EMEROOARM 12:33 → SUATTDRO 14:54 → 2ANU 16:42 → SUATTDRO 01-16 16:47
PROVIDERS: ADMIT Internal Medicine; ATTEND Internal Medicine
PROC: ENDOEBX (2018-01-15 11:15)

== ENCOUNTER 2018-09-23 16:21 | Inpatient (IN) ==
--- NOTE | 2018-09-23 17:18 | Emergency Department Note ---
Disposition Clinical Impression: Lower gastrointestinal hemorrhage Disposition: Admitted As Inpatient Condition: Undetermined Time of Disposition: 18:57 GI Bleed HPI - General Chief complaint: ED GI Bleed Stated complaint: sob/tarry stools Time Seen by Provider: 09/23/18 17:17 Source: patient Mode of arrival: ambulatory Limitations: no limitations Nursing Notes Reviewed: Yes Vital Signs Reviewed: Yes - History of Present Illness HPI Narrative: 53-year-old female past medical history of end-stage renal disease, atrial fibrillation, not currently on anticoagulation on Wednesday dialysis, 2 prior GI bleeds in December 2017 in April of this year, unknown source of bleeding, patient states that she has required multiple transfusions in the past due to hemoglobin which has dropped to 5 at the lowest. Patient states that her hemoglobin has been dropping for the past week he was noted to have gone from 11-9 between dialysis appointments. Patient states the past 2 days that she has been having dark, tarry, sticky stools which were consistent with her prior GI bleed. Patient states that she has had some lightheadedness, dizziness, headache and feeling as though she may pass out or fall down when she stands up, patient also reports having some back pain with movement but states that she believes that this is not due to her current condition. Patient also admits to dyspnea which is chronic that she states is worsening within the past 2-3 days in connection with her dark tarry stool. Pt Subjective Complaint: melena Onset (ago): day(s) Consistency: intermittent Severity: moderate Context: history of GI bleed Associated symptoms: Reports: headaches, shortness of breath, syncope/near- syncope, weakness Treatments Prior to Arrival: none - Related Data Home Medications Medication Instructions Recorded Confirmed Zolpidem [Ambien] 10 mg PO HS 03/20/16 09/23/18 Albuterol Sulfate [Proair Hfa] 2 puff IH Q4H PRN 08/12/16 09/23/18 Calcium Acetate [Phos-LO] 2,668 mg PO BIDWM 08/12/16 09/23/18 Cholecalciferol (Vitamin D3) 10,000 unit PO MO 09/01/17 09/23/18 [Vitamin D3] Esomeprazole Magnesium [Nexium] 40 mg PO DAILY 05/20/18 09/23/18 Fluticasone Propionate Nasal 1 spray NS DAILY PRN 05/20/18 09/23/18 [Flonase] Montelukast [Singulair] 10 mg PO QPM 05/20/18 09/23/18 Sertraline [Zoloft] 50 mg PO DAILY 05/20/18 09/23/18 Cetirizine HCl [All Day Allergy] 10 mg PO DAILY 06/10/18 09/23/18 Magnesium Oxide [Mag-Oxide 400 mg PO 2XW 09/23/18 09/23/18 Magnesium] Metoprolol Tartrate 25 mg PO BID MDD 75 09/23/18 09/23/18 Nephro Yani 1 tab PO 3XW 09/23/18 09/23/18 Allergies Allergy/AdvReac Type Severity Reaction Status Date / Time cephalexin [From Keflex] Allergy Hives, ITCH Verified 09/23/18 16:22 Review of Systems: *See History of Present Illness for more detail Constitutional: Admits: Chills Denies: fever Cardiovascular: Denies: chest pain Respiratory: Admits to dyspnea Denies: cough, hemoptysis Gastrointestinal: Admits to melena. Denies: abdominal pain, nausea, vomiting, diarrhea, constipation, hematemesis, hematochezia Genitourinary: Denies: hematuria Musculoskeletal: Admits back pain Denies: neck pain Integumentary: Denies: rash Neurological: Admits headache, lightheadedness, dizziness, weakness, presyncope Denies: numbness, paresthesias, difficulty with ambulation. Endocrine: Admits: fatigue All systems ED: reviewed and negative except as stated. Review of Systems: As Per HPI Past Medical History - Past Medical History Attestation: Yes The following information was validated with the patient. Source: patient Medical history: Reports: atrial fibrillation, coronary artery disease, dialysis, GI bleed, hyperlipidemia, hypertension, peripheral artery disease, renal disease, SVT, thyroid disease, other Surgical history: Reports: cholecystectomy, hip replacement, orthopedic, other, thyroidectomy, transplant Psychiatric history: Reports: no psych history HAT CONE INSPECTOR history: Reports: no HAT CONE INSPECTOR history - Social History Smoking Status: Never smoker Smokeless Tobacco Status: No Alcohol use: Reports: none Drug use: Reports: none Physical Exam Constitutional: No acute distress, [id number], engaged to conversation, speech is fluid, answers questions appropriately Neuro: GCS 15, no overt focal neurological deficits Head: Atraumatic, normocephalic Eyes: Pupils equal, round and reactive to light, no scleral icterus, no conjunctival injection Neck: Trachea midline without deviation. Anterior neck is supple without swelling. *Chest: Symmetric chest wall rise *Heart: Cardiac rhythm and rate are regular with S1 and S2 , no S3 or S4 appreciated, no murmurs, gallops, rubs, or clicks. *Lungs: Lungs are clear to auscultation bilaterally, without accessory muscle use or prolonged expiratory phase. No wheezes, rhonchi or stridor appreciated. Abdomen: Abdomen is flat, soft to palpation, normal bowel sounds. No abdominal bruit auscultated. Non-distended, non-rigid, no organomegaly, no ascites appreciated. No pulsatile mass, no tenderness or guarding to palpation in all four quadrants, no rebound Extremities: Normal capillary refill without evidence of pedal edema, joint swelling or erythema. Pulses/motor/sensory intact in all 4 extremities. Psychiatric exam: Patient displays a normal affect and mood for the environment. No overt signs of hallucination. Integumentary: warm, dry, intact, normal color. No rash, cyanosis, diaphoresis, erythema, or pallor Rectal: No kathleen blood per rectal exam, crystalizer present for Hemoccult test, no hemorrhoids. - General Limitations: no limitations General appearance: alert, in no apparent distress Course Course Narrative: Significant concern for GI bleed given patient's past medical history Evaluations: CBC, BMP, hepatic panel, coags, type and screen, ED occult blood Treatments: 2 peripheral IVs, 1 L normal saline, acetaminophen for management of patient's headache and back pain, low threshold for Protonix and Rocephin, PRBCs if necessary. Vital Signs Temperature 98 F 09/23/18 16:22 Pulse Rate 111 09/23/18 16:22 Respiratory Rate 18 09/23/18 16:22 Blood Pressure 114/76 09/23/18 16:22 O2 Sat by Pulse Oximetry 96 09/23/18 16:22 Temperature 98 F 09/23/18 16:22 Pulse Rate 93 09/23/18 18:12 Respiratory Rate 20 09/23/18 18:12 Blood Pressure 107/72 09/23/18 18:12 O2 Sat by Pulse Oximetry 93 06/07/19 18:12 Oxygen Delivery Oxygen Delivery Room Air GI Bleed - MDM Narrative Medical decision making narrative: Patient's labs show anemia with hemoglobin at 10.4. Laboratories reviewed from dialysis center showed patient's prior hemoglobin was measured at 9.5 showing an increase in hemoglobin value. Patient's creatinine consistent with end-stage renal disease on dialysis. Hemoccult is positive We will give Protonix and clindamycin as patient is allergic to Keflex while here in the ED Patient will be admitted to hospital medicine service for further evaluation and management of GI bleed. - Lab Data Lab results reviewed: Yes I reviewed the patient's lab results. Result diagrams: 09/23/18 17:56 09/23/18 17:56 Lab Results 09/23/18 09/23/18 09/23/18 Range/Units 17:30 17:56 17:56 WBC 6.9 (4.3-11.1) K/mcL RBC 3.29 L (3.82-4.97) M/mcL Hgb 10.4 L (11.5-15.4) g/dL Hct 32.0 L (35.3-44.9) % MCV 97.3 (83.0-100.0) fL MCH 31.6 (28.0-33.3) pg MCHC 32.5 (31.6-35.5) g/dL RDW 14.6 H (11.5-14.5) % Plt Count 189 (140-400) K/mcL MPV 11.7 (9.4-12.4) fL Immature Gran % 0.6 (0-4) % Seg Neutrophils % 71.6 % Lymphocytes % 17.1 % Monocytes % 9.4 % Eosinophils % 1.0 % Basophils % 0.3 % Neutrophils # 4.9 (1.6-8.9) K/mcL Lymphocytes # 1.2 (0.6-4.6) K/mcL Monocytes # 0.7 (0.0-1.3) K/mcL Eosinophils # 0.1 (0.0-0.6) K/mcL Basophils # 0.0 (0.0-0.2) K/mcL PT (9.4-12.1) Seconds INR APTT (26.0-36.0) Seconds Sodium 134 L (136-145) mEq/L Potassium 4.3 (3.5-5.1) mEq/L Chloride 89 L (98-107) mEq/L Carbon Dioxide 31 H (23-29) mEq/L BUN 26 H (6-20) mg/dL Creatinine 5.12 H (0.60-1.20) mg/dL Est GFR ( Amer) 11 L (> 60) Est GFR (Non-Af Amer) 9 L (> 60) BUN/Creatinine Ratio 5 L (6-26) Glucose 90 (70-105) mg/dL Calculated Osmolality 282 (280-300) Calcium 10.0 (8.6-10.3) mg/dL Total Bilirubin 0.4 (0.3-1.0) mg/dL Direct Bilirubin 0.1 (0.0-0.2) mg/dL Indirect Bilirubin 0.3 (0.0-1.2) mg/dL AST 34 (13-39) Units/L ALT 32 (7-52) Units/L Alkaline Phosphatase 126 H (34-104) Units/L Serum Total Protein 7.6 (6.4-8.9) g/dL Albumin 4.5 (3.5-5.7) g/dL Globulin 3.1 (2.4-3.5) g/dL Albumin/Globulin Ratio 1.5 (1.1-2.2) Stool Occult Bld Scrn Positive A (Negative) Blood Type Antibody Screen 09/23/18 09/23/18 Range/Units 17:56 18:20 WBC (4.3-11.1) K/mcL RBC (3.82-4.97) M/mcL Hgb (11.5-15.4) g/dL Hct (35.3-44.9) % MCV (83.0-100.0) fL MCH (28.0-33.3) pg MCHC (31.6-35.5) g/dL RDW (11.5-14.5) % Plt Count (140-400) K/mcL MPV (9.4-12.4) fL Immature Gran % (0-4) % Seg Neutrophils % % Lymphocytes % % Monocytes % % Eosinophils % % Basophils % % Neutrophils # (1.6-8.9) K/mcL Lymphocytes # (0.6-4.6) K/mcL Monocytes # (0.0-1.3) K/mcL Eosinophils # (0.0-0.6) K/mcL Basophils # (0.0-0.2) K/mcL PT 12.0 (9.4-12.1) Seconds INR 1.1 APTT 32.5 (26.0-36.0) Seconds Sodium (136-145) mEq/L Potassium (3.5-5.1) mEq/L Chloride (98-107) mEq/L Carbon Dioxide (23-29) mEq/L BUN (6-20) mg/dL Creatinine (0.60-1.20) mg/dL Est GFR ( Amer) (> 60) Est GFR (Non-Af Amer) (> 60) BUN/Creatinine Ratio (6-26) Glucose (70-105) mg/dL Calculated Osmolality (280-300) Calcium (8.6-10.3) mg/dL Total Bilirubin (0.3-1.0) mg/dL Direct Bilirubin (0.0-0.2) mg/dL Indirect Bilirubin (0.0-1.2) mg/dL AST (13-39) Units/L ALT (7-52) Units/L Alkaline Phosphatase (34-104) Units/L Serum Total Protein (6.4-8.9) g/dL Albumin (3.5-5.7) g/dL Globulin (2.4-3.5) g/dL Albumin/Globulin Ratio (1.1-2.2) Stool Occult Bld Scrn (Negative) Blood Type O POSITIVE Antibody Screen POSITIVE - Radiology Data Radiology results reviewed: Yes I reviewed the patient's radiology results. - EKG Data EKG attestation: Yes I reviewed and interpreted this EKG. EKG results narrative: Patient EKG shows a sinus rhythm with ventricular rate of 104 bpm, OR interval 173 ms, QRS duration of 86 ms, QT/QTc interval of 359/419 ms effectively. There are no significant ST segment elevations, depressions, pathologic Q waves, abnormal T-wave inversions, nor any other signs of acute ischemic change. EKG performed today is generally consistent with prior EKG performed on 07/08 2018.
[2018-09-23] MEDS ORDERED: 0.9 % Sodium Chloride 1,000 ML IVC ONE (17:22)
[2018-09-23 18:14] LABS: Basophils % 0.3 %; Eosinophils # 0.1 K/mcL (0.0-0.6); Hemoglobin 10.4 g/dL (11.5-15.4); Immature Granulocytes % 0.6 % (0-4); Lymphocytes # 1.2 K/mcL (0.6-4.6); Lymphocytes % 17.1 %; Mean Corpuscular HGB Conc 32.5 g/dL (31.6-35.5); Mean Corpuscular Hemoglobin 31.6 pg (28.0-33.3); Mean Corpuscular Volume 97.3 fL (83.0-100.0); Mean Platelet Volume 11.7 fL (9.4-12.4); Monocytes # 0.7 K/mcL (0.0-1.3); Monocytes % 9.4 %; Neutrophils # 4.9 K/mcL (1.6-8.9); Platelet Count 189 K/mcL (140-400); Red Blood Count 3.29 M/mcL (3.82-4.97); Red Cell Distribution Width 14.6 % (11.5-14.5); Segmented Neutrophils % 71.6 %; White Blood Count 6.9 K/mcL (4.3-11.1)
[2018-09-23 18:36] LABS: Albumin 4.5 g/dL (3.5-5.7); Albumin/Globulin Ratio 1.5 (1.1-2.2); Bilirubin,Direct 0.1 mg/dL (0.0-0.2); Bilirubin,Indirect 0.3 mg/dL (0.0-1.2); Bilirubin,Total 0.4 mg/dL (0.3-1.0); Globulin 3.1 g/dL (2.4-3.5); Potassium 4.3 mEq/L (3.5-5.1); Total Protein 7.6 g/dL (6.4-8.9)
--- NOTE | 2018-09-23 18:39 | Emergency Department Note ---
Disposition Clinical Impression: Lower gastrointestinal hemorrhage Disposition: Admitted As Inpatient Condition: Undetermined Time of Disposition: 17:00 General Adult HPI - General Chief complaint: ED GI Bleed Stated complaint: sob/tarry stools Time Seen by Provider: 09/23/18 17:17 Source: patient Mode of arrival: ambulatory Limitations: no limitations - History of Present Illness Pain Scale: 3 - Related Data Home Medications Medication Instructions Recorded Confirmed Zolpidem [Ambien] 10 mg PO HS 03/20/16 09/23/18 Albuterol Sulfate [Proair Hfa] 2 puff IH Q4H PRN 08/12/16 09/23/18 Calcium Acetate [Phos-LO] 2,668 mg PO BIDWM 08/12/16 09/23/18 Cholecalciferol (Vitamin D3) 10,000 unit PO MO 09/01/17 09/23/18 [Vitamin D3] Esomeprazole Magnesium [Nexium] 40 mg PO DAILY 05/20/18 09/23/18 Fluticasone Propionate Nasal 1 spray NS DAILY PRN 05/20/18 09/23/18 [Flonase] Montelukast [Singulair] 10 mg PO QPM 05/20/18 09/23/18 Sertraline [Zoloft] 50 mg PO DAILY 05/20/18 09/23/18 Cetirizine HCl [All Day Allergy] 10 mg PO DAILY 06/10/18 09/23/18 Magnesium Oxide [Mag-Oxide 400 mg PO 2XW 09/23/18 09/23/18 Magnesium] Metoprolol Tartrate 25 mg PO BID MDD 75 09/23/18 09/23/18 Nephro Yani 1 tab PO 3XW 09/23/18 09/23/18 Allergies Allergy/AdvReac Type Severity Reaction Status Date / Time cephalexin [From Keflex] Allergy Hives, ITCH Verified 09/23/18 16:22 Past Medical History - Past Medical History Medical history: Reports: atrial fibrillation, coronary artery disease, dialysis, GI bleed, hyperlipidemia, hypertension, peripheral artery disease, renal disease, SVT, thyroid disease, other Surgical history: Reports: cholecystectomy, hip replacement, orthopedic, other, thyroidectomy, transplant Psychiatric history: Reports: no psych history BALE SEWER history: Reports: no BALE SEWER history - Social History Smoking Status: Never smoker Smokeless Tobacco Status: No Alcohol use: Reports: none Drug use: Reports: none Physical Exam - General Limitations: no limitations General appearance: alert, in no apparent distress Course Vital Signs Temperature 98 F 09/23/18 16:22 Pulse Rate 111 09/23/18 16:22 Respiratory Rate 18 09/23/18 16:22 Blood Pressure 114/76 09/23/18 16:22 O2 Sat by Pulse Oximetry 96 09/23/18 16:22 Temperature 97.7 F 09/24/18 00:16 Pulse Rate 69 09/24/18 00:16 Respiratory Rate 18 09/24/18 00:16 Blood Pressure 100/64 09/24/18 00:16 O2 Sat by Pulse Oximetry 97 09/24/18 00:16 Oxygen Delivery Oxygen Delivery Room Air Medical Decision Making - Lab Data Result diagrams: 09/23/18 17:56 09/23/18 17:56 Lab Results 09/23/18 09/23/18 09/23/18 Range/Units 17:30 17:56 17:56 WBC 6.9 (4.3-11.1) K/mcL RBC 3.29 L (3.82-4.97) M/mcL Hgb 10.4 L (11.5-15.4) g/dL Hct 32.0 L (35.3-44.9) % MCV 97.3 (83.0-100.0) fL MCH 31.6 (28.0-33.3) pg MCHC 32.5 (31.6-35.5) g/dL RDW 14.6 H (11.5-14.5) % Plt Count 189 (140-400) K/mcL MPV 11.7 (9.4-12.4) fL Immature Gran % 0.6 (0-4) % Seg Neutrophils % 71.6 % Lymphocytes % 17.1 % Monocytes % 9.4 % Eosinophils % 1.0 % Basophils % 0.3 % Neutrophils # 4.9 (1.6-8.9) K/mcL Lymphocytes # 1.2 (0.6-4.6) K/mcL Monocytes # 0.7 (0.0-1.3) K/mcL Eosinophils # 0.1 (0.0-0.6) K/mcL Basophils # 0.0 (0.0-0.2) K/mcL PT (9.4-12.1) Seconds INR APTT (26.0-36.0) Seconds Sodium 134 L (136-145) mEq/L Potassium 4.3 (3.5-5.1) mEq/L Chloride 89 L (98-107) mEq/L Carbon Dioxide 31 H (23-29) mEq/L BUN 26 H (6-20) mg/dL Creatinine 5.12 H (0.60-1.20) mg/dL Est GFR ( Amer) 11 L (> 60) Est GFR (Non-Af Amer) 9 L (> 60) BUN/Creatinine Ratio 5 L (6-26) Glucose 90 (70-105) mg/dL Calculated Osmolality 282 (280-300) Calcium 10.0 (8.6-10.3) mg/dL Total Bilirubin 0.4 (0.3-1.0) mg/dL Direct Bilirubin 0.1 (0.0-0.2) mg/dL Indirect Bilirubin 0.3 (0.0-1.2) mg/dL AST 34 (13-39) Units/L ALT 32 (7-52) Units/L Alkaline Phosphatase 126 H (34-104) Units/L Serum Total Protein 7.6 (6.4-8.9) g/dL Albumin 4.5 (3.5-5.7) g/dL Globulin 3.1 (2.4-3.5) g/dL Albumin/Globulin Ratio 1.5 (1.1-2.2) Stool Occult Bld Scrn Positive A (Negative) Blood Type Antibody Screen Antibody Identification 09/23/18 09/23/18 Range/Units 17:56 18:20 WBC (4.3-11.1) K/mcL RBC (3.82-4.97) M/mcL Hgb (11.5-15.4) g/dL Hct (35.3-44.9) % MCV (83.0-100.0) fL MCH (28.0-33.3) pg MCHC (31.6-35.5) g/dL RDW (11.5-14.5) % Plt Count (140-400) K/mcL MPV (9.4-12.4) fL Immature Gran % (0-4) % Seg Neutrophils % % Lymphocytes % % Monocytes % % Eosinophils % % Basophils % % Neutrophils # (1.6-8.9) K/mcL Lymphocytes # (0.6-4.6) K/mcL Monocytes # (0.0-1.3) K/mcL Eosinophils # (0.0-0.6) K/mcL Basophils # (0.0-0.2) K/mcL PT 12.0 (9.4-12.1) Seconds INR 1.1 APTT 32.5 (26.0-36.0) Seconds Sodium (136-145) mEq/L Potassium (3.5-5.1) mEq/L Chloride (98-107) mEq/L Carbon Dioxide (23-29) mEq/L BUN (6-20) mg/dL Creatinine (0.60-1.20) mg/dL Est GFR ( Amer) (> 60) Est GFR (Non-Af Amer) (> 60) BUN/Creatinine Ratio (6-26) Glucose (70-105) mg/dL Calculated Osmolality (280-300) Calcium (8.6-10.3) mg/dL Total Bilirubin (0.3-1.0) mg/dL Direct Bilirubin (0.0-0.2) mg/dL Indirect Bilirubin (0.0-1.2) mg/dL AST (13-39) Units/L ALT (7-52) Units/L Alkaline Phosphatase (34-104) Units/L Serum Total Protein (6.4-8.9) g/dL Albumin (3.5-5.7) g/dL Globulin (2.4-3.5) g/dL Albumin/Globulin Ratio (1.1-2.2) Stool Occult Bld Scrn (Negative) Blood Type O POSITIVE Antibody Screen POSITIVE Antibody Identification Anti-K Attestation Statement - Attestation Attestation: I examined this patient and my medical decision-making was reviewed with the Resident Physician. I agree with the documented findings, disposition and treatment plan as described except to the extent set forth below. Patient presents to the ED with a chief complaint of dark stools. Patient has a history of GI bleeds. She has had 5 colonoscopies in the past 6 months. Patient feels like she is having another. Her only anticoagulation is aspirin that she is on for her A. fib. Patient is on dialysis. On exam she has a soft abdomen. Plan. Basic labs will type and cross. Patient's labs reviewed. Hemoglobin is stable. Her Hemoccult is positive. Patient admitted secondary risk factors and concern that she might acutely worsen.
[2018-09-23 18:56] LABS: INR 1.1
[2018-09-23 18:58] LABS: Activated Partial Thrombo Time 32.5 Seconds (26.0-36.0)
[2018-09-23] MEDS ORDERED: Pantoprazole 80 MG in 0.9 % Sodium Chloride 50 ML IVPB ONE (18:59)
[2018-09-23] MEDS ORDERED: Clindamycin 600 MG/50 ML 600 MG/50 ML IV.SOLN IVPB STA (18:59)
[2018-09-23] MEDS ORDERED: Fluticasone Propionate Nasal 50 MCG/SPRAY BOTTLE NS PRN (20:20)
--- NOTE | 2018-09-23 20:51 | Internal Med History&Physical ---
Date of Encounter: 09/23/18 Time of Encounter: 20:49 Internal Medicine - H&P: HPI Chief complaint: dark stool Admitted From: Home Plans for Post Hospital Care: Home History of present illness: Katlyn Taylor is a 53 year old woman with ESRD on HD and atrial fibrillation not on anticoagulation due to GI bleed episodes that have been recurrent leading to transfusions in the past and evaluated multiple times via endoscopic procedures but with no overt pathologies identified each time. She comes in again complaining of dark, melanotic stool that has been persistent over the last 2 days not associated abdominal pain or vomiting. She denies chest pain, lightheadedness or dizziness but says that when she went for dialysis today she was told her hemoglobin had dropped to 9.5 predialysis and afterwards was told to come to the emergency room. Over here she was initially tachycardic. Hemoglobin was 10.4 and stool occult blood screen was positive. She is admitted for observation. On my assessment she has no acute complaints. He says she stopped taking aspirin 5 days ago because she is scheduled for trigger finger release surgery of her left hand next week. Vitals: Reviewed General: Obese white woman lying comfortably in bed in no acute distress. Skin: Bronzed, warm and dry HEENT: Dry mucous membranes. (+) conjunctivae pallor. Neck: No lymphadenopathy. No JVD. No carotid bruits. No palpable thyroid. Chest: Normal thoracic expansion. Normal breath sounds. Clear to auscultation. Heart: Normal S1 & S2; rhythmic. No rubs or murmurs. Abdomen: Non-distended, soft and non-tender to palpation. No peritoneal reaction. Extremities: No clubbing, cyanosis or edema. No calf tenderness. Normal distal pulses. Fistula on left arm. Neurological: Awake, alert and oriented to person, place and time. No focal deficits. Psych: Affect appropriate. Assessment/Plan 1. Upper GI bleed: Suspect may be secondary to AVM as no pathologies have been identified each time. She may require a bleeding scan if further endoscopic procedures yield no answers. For now she is hemodynamically stable and without kathleen bleeding. Will keep her on PPI BID. Fluid mgmt. will be based on her hemodynamic state. GI consult requested. 2. Atrial fibrillation: Patient currently in sinus rhythm and stable. 3. 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 Was dialyzed today. Will check serum lytes. 4. HTN: Will monitor. Past Med Surg Social Fam HX - Past Medical History Medical history: atrial fibrillation, coronary artery disease, dialysis, GI bleed, hyperlipidemia, hypertension, peripheral artery disease, renal disease, SVT, thyroid disease, other Additional medical history: HD fistula TYLER Psychiatric history: no psych history - Past Surgical History Surgical History: cholecystectomy, hip replacement, orthopedic, other, thyroidectomy, transplant Additional surgical history: R kidney transplant, dialysis fistula removal and graft to LUE, cardiac ablation - Social History Smoking Status: Never smoker Smokeless Tobacco Status: No Alcohol use: none Drug use: none - Family History Mother Living Status: Hx Family Endocrine Disorder: Yes (Type 2 DM) Father Living Status: Hx Family Cardiac Disorders: Yes (HTN) Hx Family Respiratory Disorders: Yes (COPD) Hx Family Cancer: Yes (Colon ca) Hx Family GI Disorders: Yes (colon cancer) Hx Family Endocrine Disorder: Yes (DM Type 2) Internal Medicine - H&P: Meds Zolpidem [Ambien] 10 mg PO HS 03/20/16 [History] Albuterol Sulfate [Proair Hfa] 2 puff IH Q4H PRN 08/12/16 [History] Calcium Acetate [Phos-LO] 2,668 mg PO BIDWM 08/12/16 [History] Cholecalciferol (Vitamin D3) [Vitamin D3] 10,000 unit PO MO 09/01/17 [History] Esomeprazole Magnesium [Nexium] 40 mg PO DAILY 05/20/18 [History] Fluticasone Propionate Nasal [Flonase] 1 spray NS DAILY PRN 05/20/18 [History] Montelukast [Singulair] 10 mg PO QPM 05/20/18 [History] Sertraline [Zoloft] 50 mg PO DAILY 05/20/18 [History] Cetirizine HCl [All Day Allergy] 10 mg PO DAILY 06/10/18 [History] Magnesium Oxide [Mag-Oxide Magnesium] 400 mg PO 2XW 09/23/18 [History] Metoprolol Tartrate 25 mg PO BID MDD 75 09/23/18 [History] Nephro Yani 1 tab PO 3XW 09/23/18 [History] Allergy/AdvReac Type Severity Reaction Status Date / Time cephalexin [From Keflex] Allergy Hives, ITCH Verified 09/23/18 16:22 All Systems PM: A 10-system review of systems was performed and is negative for pertinent findings except as documented above in the HPI. - Constitutional Vitals: Temp Pulse Resp BP Pulse Ox 98 F 89 20 102/61 99 09/23/18 16:22 09/23/18 20:04 09/23/18 20:04 09/23/18 20:04 09/23/18 20:04 Exam: . Internal Med - H&P Results - Labs CBC & Chem 7: 09/23/18 17:56 09/23/18 17:56 Labs: Short CBC 09/23/18 Range/Units 17:56 WBC 6.9 (4.3-11.1) K/mcL Hgb 10.4 L (11.5-15.4) g/dL Hct 32.0 L (35.3-44.9) % Plt Count 189 (140-400) K/mcL Neutrophils # 4.9 (1.6-8.9) K/mcL BMP 09/23/18 17:56 Sodium 134 L Potassium 4.3 Chloride 89 L Carbon Dioxide 31 H BUN 26 H Creatinine 5.12 H Glucose 90 Calcium 10.0 Liver Function 09/23/18 Range/Units 17:56 Total Bilirubin 0.4 (0.3-1.0) mg/dL Direct Bilirubin 0.1 (0.0-0.2) mg/dL AST 34 (13-39) Units/L ALT 32 (7-52) Units/L Alkaline Phosphatase 126 H (34-104) Units/L Albumin 4.5 (3.5-5.7) g/dL - Time Spent With Patient Total time spent is greater than 50% in coordination of care (as documented) at patient's floor/unit and/or counseling patient: Greater than 35 minutes
[2018-09-24 01:31] LABS: Hematocrit 30.1 % (35.3-44.9); Hemoglobin 9.7 g/dL (11.5-15.4)
[2018-09-24 04:31] LABS: Hematocrit 30.2 % (35.3-44.9)
[2018-09-24 04:49] LABS: Calcium 9.3 mg/dL (8.6-10.3); Magnesium 1.9 mg/dL (1.6-2.6); Potassium 3.8 mEq/L (3.5-5.1)
[2018-09-24] MEDS: Pantoprazole 40 MG VIAL IVP SCH ×2 (06:31→17:00)
[2018-09-24 08:01] LABS: Hematocrit 31.3 % (35.3-44.9); Hemoglobin 10.3 g/dL (11.5-15.4)
[2018-09-24] MEDS: Loratadine 10 MG TABLET PO SCH (08:24)
--- NOTE | 2018-09-24 11:59 | Internal Med Progress Note ---
Hospitalist Progress Note - Encounter Date of Encounter: 09/24/18 Time of Encounter: 08:00 - Subjective Interval History: She was seen and examined at bedside. Continues to have black stool last episode as this AM. Reports that she has had multiple endoscopies at least 6 in the past 6 months without any answers about her bleeding. She even completed a capsule endoscopy and it was inconclusive I discussed that we will get a nuclear bleeding scan to further evaluate cause of her bleeding. Discussed that her hemoglobin currently is stable above 10 we will continue to monitor H&H. She denies kathleen hematochezia or hematemesis. Reports that she is only on aspirin, denies NSAID use or anticoagulation. He denies fever, chills, palpitations, chest pain, syncope or falls. - Exam Vitals: Temp Pulse Resp BP Pulse Ox 98.0 F 70 18 100/68 99 09/24/18 06:58 09/24/18 06:58 09/24/18 06:58 09/24/18 06:58 09/24/18 06:58 Exam: General: Patient is alert, oriented, no acute distress, obese Head: atraumatic, normocephalic, Eye: normal appearance, PERRL, no scleral icterus, no conjunctival injection ENT: mucous membranes moist, normal external ear exam Neck: normal inspection, trachea midline, full ROM, Chest: normal inspection, symmetric chest rise Respiratory: Good respiratory effort. Bilateral breath sounds are clear without wheezing, crackles, or rhonchi. Cardiovascular: Regular rate and rhythm. s1 and s2 No clicks, rubs, gallops, or murmors. Abdomen: Bowel sounds present normoactive x-4 quadrants. Abdomen is soft, nondistended. no Epigastric tenderness. No guarding or rebound. No organomegaly noted, obese musculoskeletal: Spontaneously moving all extremities. no edema, no calf tenderness Skin: warm, dry, intact. Neuro: Alert and oriented 3, focal deficit Psych: Patient's affect is normal - Assessment and Plan (1) Melena Current Visit: No Status: Acute Assessment and Plan: Upper GI bleed vs LGIB ? AVM as no pathologies have been identified on multiple EGD and colonoscopies recently had capsule endoscpy which was inconclusive on PPI BID. 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 not on OAC is on ASA which is held due to GIB and she understands risks and benefits. (4) Obese Current Visit: Yes Status: Acute Assessment and Plan: was counseled (5) DVT prophylaxis Current Visit: No Status: Acute Assessment and Plan: scds - Time Spent with Patient Total time spent is greater than 50% in coordination of care (as documented) at patient's floor/unit and/or counseling patient: 25 - 35 minutes Plan of Care Discussed with: patient Internal Medicine: Result - Labs CBC & Chem 7: 09/24/18 07:38 09/24/18 04:19 Labs: Short CBC 09/23/18 09/24/18 09/24/18 Range/Units 17:56 00:58 04:19 WBC 6.9 (4.3-11.1) K/mcL Hgb 10.4 L 9.7 L 10.0 L (11.5-15.4) g/dL Hct 32.0 L 30.1 L 30.2 L (35.3-44.9) % Plt Count 189 (140-400) K/mcL Neutrophils # 4.9 (1.6-8.9) K/mcL 09/24/18 Range/Units 07:38 WBC (4.3-11.1) K/mcL Hgb 10.3 L (11.5-15.4) g/dL Hct 31.3 L (35.3-44.9) % Plt Count (140-400) K/mcL Neutrophils # (1.6-8.9) K/mcL BMP 09/23/18 09/24/18 17:56 04:19 Sodium 134 L 134 L Potassium 4.3 3.8 Chloride 89 L 91 L Carbon Dioxide 31 H 27 BUN 26 H 35 H Creatinine 5.12 H 6.19 H Glucose 90 86 Calcium 10.0 9.3 Liver Function 09/23/18 Range/Units 17:56 Total Bilirubin 0.4 (0.3-1.0) mg/dL Direct Bilirubin 0.1 (0.0-0.2) mg/dL AST 34 (13-39) Units/L ALT 32 (7-52) Units/L Alkaline Phosphatase 126 H (34-104) Units/L Albumin 4.5 (3.5-5.7) g/dL - ABG Interpretation ABG results: PT/INR, D-dimer PT 12.0 Seconds (9.4-12.1) 09/23/18 18:20 - Impressions Impressions GI Bleed Scan Nuclear Medicine 09/24/18 08:24 IMPRESSION: No evidence of active GI bleeding during acquisition. RECOMMENDATIONS: If the patient shows hemodynamic signs of an active bleed in the next 20 hours, additional images can be acquired. D/ / Konstantin Naidu MD / Konstantin Naidu MD Interpreting Provider: Konstantin Naidu MD Consult Discharge Plan - Plan Referrals: Demetra Ellison, IT SOFTWARE ENGINEER [Primary Care Provider] - (3) Atrial fibrillation Qualifiers: Atrial fibrillation type: unspecified Qualified Code(s): I48.91 - Unspecified atrial fibrillation (4) Obese Qualifiers: Obesity type: due to excess calories Body mass index: BMI 32.0-32.9
[2018-09-24] MEDS: Calcium Acetate 667 MG CAPSULE PO SCH ×2 (15:03→17:01)
[2018-09-24 15:32] LABS: Hematocrit 30.5 % (35.3-44.9); Hemoglobin 10.1 g/dL (11.5-15.4)
[2018-09-24] MEDS: Acetaminophen 325 MG TABLET PO PRN ×2 (15:35→21:52)
[2018-09-24 21:54] LABS: Hematocrit 29.3 % (35.3-44.9); Hemoglobin 9.9 g/dL (11.5-15.4)
[2018-09-25 04:15] LABS: Hematocrit 25.7 % (35.3-44.9); Hemoglobin 8.6 g/dL (11.5-15.4)
[2018-09-25] MEDS: Simethicone 80 MG TAB.CHEW PO PRN ×3 (05:58→22:36)
[2018-09-25] MEDS: Pantoprazole 40 MG VIAL IVP SCH ×2 (05:58→17:42)
[2018-09-25] MEDS: Loratadine 10 MG TABLET PO SCH (09:04)
[2018-09-25 09:31] LABS: Hematocrit 28.5 % (35.3-44.9); Hemoglobin 9.5 g/dL (11.5-15.4)
[2018-09-25] MEDS: Calcium Acetate 667 MG CAPSULE PO SCH ×2 (11:08→17:42)
--- NOTE | 2018-09-25 11:47 | Internal Med Progress Note ---
Hospitalist Progress Note - Encounter Date of Encounter: 09/25/18 Time of Encounter: 08:00 - Subjective Interval History: She was seen and examined at bedside. Reports that she had multiple episodes of melena yesterday however has had no further episodes since earlier this morning. I discussed that she will need to remain nothing by mouth for now until we follow another blood level and she is in agreement. I discussed that her nuclear scan was negative and that surgery was consulted however as per patient surgery evaluate the patient and recommended to hold off of endoscopy and colonoscopy for now. I discussed that we will follow her blood levels again and if they continue to trend down well call surgery again. She denies fever, chills, palpitations, nausea, vomiting. Has had no hemoptysis or hematemesis or kathleen hematochezia - Exam Vitals: Temp Pulse Resp BP Pulse Ox 97.8 F 79 15 121/63 100 09/25/18 10:31 09/25/18 10:31 09/25/18 10:31 09/25/18 10:31 09/25/18 10:31 Exam: General: Patient is alert, oriented, no acute distress, obese Head: atraumatic, normocephalic, Eye: normal appearance, PERRL, no scleral icterus, no conjunctival injection ENT: mucous membranes moist, normal external ear exam Neck: normal inspection, trachea midline, full ROM, Chest: normal inspection, symmetric chest rise Respiratory: Good respiratory effort. Bilateral breath sounds are clear without wheezing, crackles, or rhonchi. Cardiovascular: Regular rate and rhythm. s1 and s2 No clicks, rubs, gallops, or murmors. Abdomen: Bowel sounds present normoactive x-4 quadrants. Abdomen is soft, nondistended. no Epigastric tenderness. No guarding or rebound. No organomegaly noted, obese musculoskeletal: Spontaneously moving all extremities. no edema, no calf tenderness Skin: warm, dry, intact. Neuro: Alert and oriented 3, focal deficit Psych: Patient's affect is normal - Assessment and Plan (1) Melena Current Visit: No Status: Acute Assessment and Plan: Upper GI bleed vs LGIB ? AVM as no pathologies have been identified on multiple EGD and colonoscopies recently had capsule endoscopy which was inconclusive on PPI BID. 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 on 09/24 with elevated patient and recommended to hold off endoscopy and colonoscopy for now and will stay on board incase she becomes hemodynamically unstable nuclear scan on 09/24/2018 was negative avoid NSAIDS and anticoagulation H&H trended down to 8.6 we will follow another one now if it continues to trend down will call surgery again follow H/H Q6H (2) End stage renal disease Current Visit: No Status: Acute Assessment and Plan: ESRD on HD - was dialyzed on wednesday nephrology consulted (3) Atrial fibrillation Current Visit: No Status: Resolved Assessment and Plan: Atrial fibrillation: Patient currently in sinus rhythm and stable. not on OAC is on ASA which is held due to GIB and she understands risks and benefits. (4) Obese Current Visit: Yes Status: Acute Assessment and Plan: was counseled (5) DVT prophylaxis Current Visit: No Status: Acute Assessment and Plan: scds - Time Spent with Patient Total time spent is greater than 50% in coordination of care (as documented) at patient's floor/unit and/or counseling patient: Internal Medicine: Result - Labs CBC & Chem 7: 09/25/18 09:16 09/24/18 04:19 Labs: Short CBC 09/24/18 09/24/18 09/25/18 Range/Units 15:21 21:46 03:58 Hgb 10.1 L 9.9 L 8.6 L (11.5-15.4) g/dL Hct 30.5 L 29.3 L 25.7 L (35.3-44.9) % 09/25/18 Range/Units 09:16 Hgb 9.5 L (11.5-15.4) g/dL Hct 28.5 L (35.3-44.9) % - ABG Interpretation ABG results: PT/INR, D-dimer PT 12.0 Seconds (9.4-12.1) 09/23/18 18:20 - Impressions Impressions GI Bleed Scan Nuclear Medicine 09/24/18 08:24 IMPRESSION: No evidence of active GI bleeding during acquisition. RECOMMENDATIONS: If the patient shows hemodynamic signs of an active bleed in the next 20 hours, additional images can be acquired. D/ / Konstantin Naidu MD / Konstantin Naidu MD Interpreting Provider: Konstantin Naidu MD Consult Discharge Plan - Plan Referrals: Demetra Ellison, CONSULTATIVE SALES ASSOCIATE [Primary Care Provider] - (3) Atrial fibrillation Qualifiers: Atrial fibrillation type: unspecified Qualified Code(s): I48.91 - Unspecified atrial fibrillation (4) Obese Qualifiers: Obesity type: due to excess calories Body mass index: BMI 32.0-32.9
[2018-09-25 16:39] LABS: Hemoglobin 9.3 g/dL (11.5-15.4)
--- NOTE | 2018-09-25 17:25 | Nephrology Consult Note ---
Date of Encounter: 09/25/18 Time of Encounter: 12:00 Assessment and Plan (1) Anemia due to blood loss, acute Status: Acute Hgb noted at 8.6 dropping slowly, will montior with serial labs Transfusion parameters per primary team (2) End stage renal disease Status: Acute HD planned tomorrow Lytes stable Renal diet when able to eat (3) Melena Status: Acute Needs GI workup History of Present Illness - Reason for Consult Consult date: 09/25/18 end stage renal disease Requesting physician: Kyra Steve - History of Present Illness 53 y o female with PMH of PMH of Afib off anticoag, ESRD on HD and recurrent GI bleed with scopes in the recent past admitted with dark tarry stools. Renal consulted for HD need tomorrow. Pt seen and examined with and grandson at beside. Pt reports last HD was on wednesday and came in afterwards. Pt denies and N/V/D. No SOB. No chest pain. Past Med Surg Social Fam HX - Past Medical History Medical history: atrial fibrillation, coronary artery disease, dialysis, GI ble ed, hyperlipidemia, hypertension, peripheral artery disease, renal disease, SVT, thyroid disease, other Additional medical history: HD fistula TYLER Psychiatric history: no psych history - Past Surgical History Surgical History: cholecystectomy, hip replacement, orthopedic, other, thyroidectomy, transplant Additional surgical history: R kidney transplant, dialysis fistula removal and g raft to LUE, cardiac ablation - Social History Smoking Status: Never smoker Smokeless Tobacco Status: No Alcohol use: none Drug use: none - Family History Mother Living Status: Hx Family Endocrine Disorder: Yes (Type 2 DM) Father Living Status: Hx Family Cardiac Disorders: Yes (HTN) Hx Family Respiratory Disorders: Yes (COPD) Hx Family Cancer: Yes (Colon ca) Hx Family GI Disorders: Yes (colon cancer) Hx Family Endocrine Disorder: Yes (DM Type 2) Medications and Allergies Zolpidem [Ambien] 10 mg PO HS PRN 03/20/16 [History] Esomeprazole Magnesium [Nexium] 40 mg PO BID 05/20/18 [History] Fluticasone Propionate Nasal [Flonase] 1 spray NS DAILY PRN 05/20/18 [History] Sertraline [Zoloft] 50 mg PO DAILY 05/20/18 [History] Cetirizine HCl [All Day Allergy] 10 mg PO HS PRN 06/10/18 [History] Albuterol Neb [Proventil Neb] 2.5 mg IH Q8H PRN 09/25/18 [History] Albuterol Sulfate [Ventolin Hfa] 2 puff IH Q4H PRN 09/25/18 [History] Aspirin Enteric Coated [Aspirin EC] 81 mg PO DAILY 09/25/18 [History] Budesonide/Formoterol 160/4.5 [Symbicort 160/4.5] 2 puff IH BIDR 09/25/18 [History] Magnesium Oxide 400 mg PO MOWE 09/25/18 [History] Metoprolol [Lopressor] 25 mg PO BID 09/25/18 [History] Non-Formulary Medication 1 cap PO MO 09/25/18 [History] Non-Formulary Medication 1 tab PO DAILY 09/25/18 [History] cloNIDine HCl [CloNIDine HCl] 0.1 mg PO DAILY PRN 09/25/18 [History] Cholecalciferol (D-3) [Vitamin D] 1,000 unit PO DAILY tablet 09/29/18 [Rx] Montelukast [Singulair] 10 mg PO QPM tablet 09/29/18 [Rx] Renal Vitamin [Renal Caps Softgel] 1 cap PO 3XW capsule 09/29/18 [Rx] Allergy/AdvReac Type Severity Reaction Status Date / Time cephalexin [From Keflex] Allergy Hives, ITCH Verified 09/25/18 15:31 Review of Systems All Systems review (narrative): The rest of the systems are negative Exam - Vital Signs Vital signs: Initial Vital Signs Temp Pulse Resp BP Pulse Ox 98 F 111 18 114/76 96 09/23/18 16:22 09/23/18 16:22 09/23/18 16:22 09/23/18 16:22 09/23/18 16:22 Vital Signs - Last 8 Hours Temp Pulse Resp BP Pulse Ox 09/25/18 14:43 98.0 F 72 14 136/69 97 09/25/18 10:31 97.8 F 79 15 121/63 100 Intake and Output 09/25/18 09/25/18 09/25/18 07:59 15:59 23:59 Intake Total 480 / 1000 520 / 1000 Balance 480 / 1000 520 / 1000 Intake: Oral 480 / 1000 520 / 1000 Other: Meal Lunch # Voids 1 # Bowel Movements 0 2 Weight 92.2 kg Blood Glucose* 94 Patient Weight 09/25/18 23:59 Weight 92.2 kg - General Appearance General appearance: well-developed, well-nourished EENT: ATNC, mucous membranes moist Neck: no JVD, supple Respiratory: clear Cardiology: no edema, normal S1, normal S2 - Dialysis Access Dialysis Vascular Access: Arteriovenous Fistula thrill: Yes bruit: Yes Gastrointestinal: no tenderness, no guarding Integumentary: warm and dry Neurologic: no focal deficit Musculoskeletal: no deformities Psychiatric: mood/affect appropriate, cooperative Results - Lab Results 09/29/18 15:50 09/29/18 03:37 Consult Discharge Plan - Plan Instructions: Anemia (GEN) Referrals: Demetra Ellison CNP [Primary Care Provider] - (Web request. Office will call patient with date and time of appointment. Thank you) Abelardo Velazquez CNP [Advanced Practice Nurse] - (Web request. Office will call with date and time of appointment. Thank you)
--- NOTE | 2018-09-25 18:03 | AcuteCare Surgery Consult Note ---
Date of Encounter: 09/25/18 Time of Encounter: 18:01 Assessment and Plan (1) Melena Current Visit: Yes Status: Acute 53F with multiple comorbidities with recurrent anemia and melena with no identifiable source of bleeding. I had a long discussion with the patient as well as the primary team; With her most recent scopes being within the last 3 months with no identifiable source, combined with negative pill endoscopy, I cannot see the benefit of a repeat scope; I would recommend instead continued follow up with GI for further work up; consult GI for recommendations as they have been scoping and working up LGIB trend h/h diet as tolerated will sign off, but we are available should her clinical status change and she become hemodynamically unstable History of Present Illness Consult date: 09/25/18 Reason for consult: other (anemia, melena) History of present illness: 53F pMH significant for CKD currently on HD, a fib, CAD, HLD, HTN admitted for anemia and lower GI bleed. The patient has been having ongoing lower GI bleed evaluated by GI multiple times in the last 6 months, even with capsule endoscopy without definitive source of bleeding. A RBC tagged cell scan was obtained also did not identify a source of bleeding. No reports of dizziness, light headedness, chest pain, shortness of breath nor other systemic symptoms. NO reports of unexplained weight loss, but she does report fatigue. Past Med Surg Social Fam HX - Past Medical History Medical history: atrial fibrillation, coronary artery disease, dialysis, GI bleed, hyperlipidemia, hypertension, peripheral artery disease, renal disease, SVT, thyroid disease, other Additional medical history: HD fistula TYLER Psychiatric history: no psych history - Past Surgical History Surgical History: cholecystectomy, hip replacement, orthopedic, other, thyroidectomy, transplant Additional surgical history: R kidney transplant, dialysis fistula removal and graft to LUE, cardiac ablation - Social History Smoking Status: Never smoker Smokeless Tobacco Status: No Alcohol use: none Drug use: none - Family History Mother Living Status: Hx Family Endocrine Disorder: Yes (Type 2 DM) Father Living Status: Hx Family Cardiac Disorders: Yes (HTN) Hx Family Respiratory Disorders: Yes (COPD) Hx Family Cancer: Yes (Colon ca) Hx Family GI Disorders: Yes (colon cancer) Hx Family Endocrine Disorder: Yes (DM Type 2) Medications and Allergies Zolpidem [Ambien] 10 mg PO HS PRN 03/20/16 [History] Esomeprazole Magnesium [Nexium] 40 mg PO BID 05/20/18 [History] Fluticasone Propionate Nasal [Flonase] 1 spray NS DAILY PRN 05/20/18 [History] Sertraline [Zoloft] 50 mg PO DAILY 05/20/18 [History] Cetirizine HCl [All Day Allergy] 10 mg PO HS PRN 06/10/18 [History] Albuterol Neb [Proventil Neb] 2.5 mg IH Q8H PRN 09/25/18 [History] Albuterol Sulfate [Ventolin Hfa] 2 puff IH Q4H PRN 09/25/18 [History] Aspirin Enteric Coated [Aspirin EC] 81 mg PO DAILY 09/25/18 [History] Budesonide/Formoterol 160/4.5 [Symbicort 160/4.5] 2 puff IH BIDR 09/25/18 [History] Magnesium Oxide 400 mg PO MOWE 09/25/18 [History] Metoprolol [Lopressor] 25 mg PO BID 09/25/18 [History] Non-Formulary Medication 1 cap PO MO 09/25/18 [History] Non-Formulary Medication 1 tab PO DAILY 09/25/18 [History] cloNIDine HCl [CloNIDine HCl] 0.1 mg PO DAILY PRN 09/25/18 [History] Allergy/AdvReac Type Severity Reaction Status Date / Time cephalexin [From Keflex] Allergy Hives, ITCH Verified 09/25/18 15:31 Review of Systems All systems PM: 12 point ROS negative besides HPI findings General Surgery Exam Initial Vital Signs Temp Pulse Resp BP Pulse Ox 98 F 111 18 114/76 96 09/23/18 16:22 09/23/18 16:22 09/23/18 16:22 09/23/18 16:22 09/23/18 16:22 - General physical appearance no distress - Eyes PERRL, normal ocular movement - ENT normocephalic - Neck trachea midline, no lymphadectomy - Respiratory normal expansion, normal respiratory effort - Cardiovascular Cardiovascular exam: Present: RRR - Abdomen Abdomen general surgery: Present: soft, non tender - Integumentary Integumentary general surgery: Present: warm and dry - Neurologic Present: CN 2-12 grossly intact - Musculoskeletal Present: normal gait, normal posture - Psychiatric Psychiatric general surgery: Present: A&Ox3 Exam Initial Vital Signs Temp Pulse Resp BP Pulse Ox 98 F 111 18 114/76 96 09/23/18 16:22 09/23/18 16:22 09/23/18 16:22 09/23/18 16:22 09/23/18 16:22 Results - Labs 09/25/18 15:41 09/24/18 04:19 Abnormal lab results RBC 3.29 M/mcL (3.82-4.97) L 09/23/18 17:56 Hgb 9.3 g/dL (11.5-15.4) L 09/25/18 15:41 Hct 27.0 % (35.3-44.9) L 09/25/18 15:41 RDW 14.6 % (11.5-14.5) H 09/23/18 17:56 Sodium 134 mEq/L (136-145) L 09/24/18 04:19 Chloride 91 mEq/L (98-107) L 09/24/18 04:19 Carbon Dioxide 31 mEq/L (23-29) H 09/23/18 17:56 BUN 35 mg/dL (6-20) H 09/24/18 04:19 6.19 mg/dL (0.60-1.20) H 09/24/18 04:19 Est GFR ( Amer) 9 (> 60) L 09/24/18 04:19 Est GFR (Non-Af Amer) 7 (> 60) L 09/24/18 04:19 5 (6-26) L 09/23/18 17:56 Phosphorus 6.0 mg/dL (2.7-4.5) H 09/24/18 04:19 126 Units/L (34-104) H 09/23/18 17:56 Stool Occult Bld Scrn Positive (Negative) A 09/23/18 17:30 All other labs normal. Consult Discharge Plan - Plan Referrals: Demetra Ellison CNP [Primary Care Provider] -
[2018-09-25 21:21] LABS: Hematocrit 25.2 % (35.3-44.9); Hemoglobin 8.5 g/dL (11.5-15.4)
[2018-09-25] MEDS: Acetaminophen 325 MG TABLET PO PRN (22:36)
[2018-09-26 03:20] LABS: Hematocrit 23.1 % (35.3-44.9)
[2018-09-26 03:40] LABS: Calcium 8.1 mg/dL (8.6-10.3); Potassium 4.3 mEq/L (3.5-5.1)
[2018-09-26] MEDS: Pantoprazole 40 MG VIAL IVP SCH ×2 (05:24→17:25)
[2018-09-26] MEDS ORDERED: 0.9 % Sodium Chloride 250 ML IVC PRN (08:27)
[2018-09-26] MEDS ORDERED: 0.9 % Sodium Chloride 1,000 ML PRIME SCH (08:30)
[2018-09-26] MEDS: Cholecalciferol (D-3) 1,000 UNIT TABLET PO SCH (08:52)
[2018-09-26] MEDS: Renal Vitamin 1 CAP CAPSULE PO SCH (08:52)
[2018-09-26] MEDS: Loratadine 10 MG TABLET PO SCH (08:52)
[2018-09-26] MEDS: Calcium Acetate 667 MG CAPSULE PO SCH (08:53)
[2018-09-26] MEDS: Acetaminophen 325 MG TABLET PO PRN ×2 (08:57→17:33)
[2018-09-26] MEDS ORDERED: Magnesium Oxide 400 MG TABLET PO SCH (09:00)
[2018-09-26 09:30] LABS: Hematocrit 25.3 % (35.3-44.9); Hemoglobin 8.9 g/dL (11.5-15.4)
--- NOTE | 2018-09-26 10:45 | Internal Med Progress Note ---
Hospitalist Progress Note - Encounter Date of Encounter: 09/26/18 Time of Encounter: 08:00 - Subjective Interval History: Patient was seen and examined at bedside. Reports that she had one episode of melena yesterday however no episodes overnight nor this morning. I discussed that her hemoglobin had trended down and she will need to remain nothing by m outh for gastroenterology to come and see her since he had no gastroenterology over the weekend. She is for hemodialysis today. She denies any fever, chills, hematemesis or hematochezia. Denies any dizziness or syncopal episodes or falls. - Exam Vitals: Temp Pulse Resp BP Pulse Ox 97.6 F 73 15 123/75 99 09/26/18 06:53 09/26/18 06:53 09/26/18 06:53 09/26/18 06:53 09/26/18 06:53 Exam: General: Patient is alert, oriented, no acute distress, obese Head: atraumatic, normocephalic, Eye: normal appearance, PERRL, no scleral icterus, no conjunctival injection ENT: mucous membranes moist, normal external ear exam Neck: normal inspection, trachea midline, full ROM, Chest: normal inspection, symmetric chest rise Respiratory: Good respiratory effort. Bilateral breath sounds are clear without wheezing, crackles, or rhonchi. Cardiovascular: Regular rate and rhythm. s1 and s2 No clicks, rubs, gallops, or murmors. Abdomen: Bowel sounds present normoactive x-4 quadrants. Abdomen is soft, nondistended. no Epigastric tenderness. No guarding or rebound. No organomegaly noted, obese musculoskeletal: Spontaneously moving all extremities. no edema, no calf tenderness Skin: warm, dry, intact. Neuro: Alert and oriented 3, focal deficit Psych: Patient's affect is normal - Assessment and Plan (1) Melena Current Visit: Yes Status: Acute Assessment and Plan: Upper GI bleed vs LGIB ? AVM as no pathologies have been identified on multiple EGD and colonoscopies recently had capsule endoscopy which was inconclusive on PPI BID. surgery consulted on 09/24 with elevated patient and recommended to hold off endoscopy and colonoscopy for now and will stay on board incase she becomes hemodynamically unstable nuclear scan on 09/24/2018 was negative avoid NSAIDS and anticoagulation Gi consulted - will follow recommendations H&H trended down 8.9 on 09/26 awaiting GI recommendations follow H/H Q6H (2) End stage renal disease Current Visit: No Status: Acute Assessment and Plan: ESRD on HD - was dialyzed on wednesday nephrology consulted (3) Atrial fibrillation Current Visit: No Status: Resolved Assessment and Plan: Atrial fibrillation: Patient currently in sinus rhythm and stable. not on OAC is on ASA which is held due to GIB and she understands risks and benefits. (4) Obese Current Visit: Yes Status: Acute Assessment and Plan: was counseled (5) DVT prophylaxis Current Visit: No Status: Acute Assessment and Plan: scds - Time Spent with Patient Total time spent is greater than 50% in coordination of care (as documented) at patient's floor/unit and/or counseling patient: Internal Medicine: Result - Labs CBC & Chem 7: 09/26/18 09:17 09/26/18 03:09 Labs: Short CBC 09/25/18 09/25/18 09/26/18 Range/Units 15:41 21:03 03:09 Hgb 9.3 L 8.5 L 8.0 L (11.5-15.4) g/dL Hct 27.0 L 25.2 L 23.1 L (35.3-44.9) % 09/26/18 Range/Units 09:17 Hgb 8.9 L (11.5-15.4) g/dL Hct 25.3 L (35.3-44.9) % BMP 09/26/18 03:09 Sodium 128 L Potassium 4.3 Chloride 87 L Carbon Dioxide 23 BUN 72 H Creatinine 10.23 H Glucose 88 Calcium 8.1 L - ABG Interpretation ABG results: PT/INR, D-dimer PT 12.0 Seconds (9.4-12.1) 09/23/18 18:20 Consult Discharge Plan - Plan Referrals: Demetra Ellison, LEAD RADIATION THERAPIST [Primary Care Provider] - (3) Atrial fibrillation Qualifiers: Atrial fibrillation type: unspecified Qualified Code(s): I48.91 - Unspecified atrial fibrillation (4) Obese Qualifiers: Obesity type: due to excess calories Body mass index: BMI 32.0-32.9
--- NOTE | 2018-09-26 11:41 | Gastroenterology Consult Note ---
<Abelardo Velazquez - Last Filed: 09/26/18 11:39> Date of Encounter: 09/26/18 Time of Encounter: 10:50 - Assessment and plan (1) Melena Current Visit: Yes Status: Acute Assessment and plan: Patient has had an extensive negative workup for GI bleeding, including EGD, push enteroscopy, colonoscopy, and capsule endoscopy. Patient with continued black stool. Plan for EGD today or tomorrow to r/o esophagitis, gastritis, duodenitis, PUD, MW tear, or AVM. Keep NPO for now. If unable to complete EGD today, ok for clear liquid diet, then NPO at midnight and plan for EGD tomorrow. (2) Anemia Current Visit: No Status: Chronic Assessment and plan: Hgb 10.4 with MCV 97.3 on admission and today Hgb 8.9. GI bleeding scan negative. Could be due to anemia of chronic disease. Check iron, ferritin, vitamin B 12, and folate. Qualifiers: Anemia type: unspecified type Qualified Code(s): D64.9 - Anemia, unspecified - Time Spent With Patient Total time spent is greater than 50% in coordination of care (as documented) at patient's floor/unit and/or counseling patient: GI History of Present Illness - Data of Consult Patient: known to practice within the last 3 years Consult date: 09/26/18 (\) Requesting Physician: Cale Lang MD - Consult Narrative Reason for consult: UGIB History of present illness: Ms. Taylor is a 53 year old female with PMHx of Afib, CAD, ESRD, GI bleed, who presented with 2-3 days of dark stool. She has had extensive GI workup for bleeding with no overt pathologies identified. She denies fever, chills, chest pain, abdominal pain, nausea, vomiting, or hematochezia. Hgb 10.4 with MCV 97.3 on admission and today Hgb 8.9. We were consulted to evaluate for possible upper GI bleed. Procedures: Capsule endoscopy 07/05/2018: No obvious pathology to explain anemia. Push enteroscopy 05/21/2018 Dr. Chan: Normal. Colonoscopy 05/21/2017 Dr. Chan: 6 mm tubular adenoma and 6 mm hyperplastic polyp. Colonoscopy 01/28/2018 Dr. Lamar: Ulcer in the ascending colon, 2 sessile serrated polyps ranging from 5-12 mm in size and hyperplastic polyps ranging from 5-8 mm in size, and internal hemorrhoids, repeat in 6 months. Colonoscopy 01/16/2018 Dr. Lamar: Tubular adenoma ranging from 12-23 mm, internal hemorrhoids. EGD 01/15/2018 Dr. Lamar: LA grade A reflux esophagitis, gastritis, gastroparesis. Colonoscopy 01/15/2018 Dr. Lamar: Two 25 mm polyps in the sigmoid colon unable to remove, internal hemorrhoids. NSAIDs: ASA Anticoagualtion: None Past Med Surg Social Fam HX - Past Medical History Medical history: atrial fibrillation, coronary artery disease, dialysis, GI bleed, hyperlipidemia, hypertension, peripheral artery disease, renal disease, SVT, thyroid disease, other Additional medical history: HD fistula TYLER Psychiatric history: no psych history - Past Surgical History Surgical History: cholecystectomy, hip replacement, orthopedic, other, thyroidectomy, transplant Additional surgical history: R kidney transplant, dialysis fistula removal and graft to LUE, cardiac ablation - Social History Smoking Status: Never smoker Smokeless Tobacco Status: No Alcohol use: none Drug use: none - Family History Mother Living Status: Hx Family Endocrine Disorder: Yes (Type 2 DM) Father Living Status: Hx Family Cardiac Disorders: Yes (HTN) Hx Family Respiratory Disorders: Yes (COPD) Hx Family Cancer: Yes (Colon ca) Hx Family GI Disorders: Yes (colon cancer) Hx Family Endocrine Disorder: Yes (DM Type 2) - Gastrointestinal Gastrointestinal: Present: as per HPI - Constitutional Constitutional: as per HPI - EENT Eyes: as per HPI Ears: Present: as per HPI Nose, mouth and throat: Present: as per HPI - Cardiovascular Cardiovascular ROS: Present: as per HPI - Respiratory Respiratory IM: Present: as per HPI - Genitourinary Genitourinary: Absent: change in color, Urinary frequency - Neurological ROS Neurological GI: Present: as per HPI - Hematologic/Lymphatic Hematologic/Lymphatic pediatric: Present: as per HPI - Musculoskeletal Musculoskeletal ROS GI: Present: as per HPI - Integumentary Integumentary GI: Present: as per HPI - Psychiatric ROS Psychiatric GI: Present: as per HPI - Endocrine Endocrine IM: Present: as per HPI - Constitutional Vitals: Temp Pulse Resp BP Pulse Ox 98.3 F 67 15 126/80 97 09/26/18 10:40 09/26/18 10:40 09/26/18 10:40 09/26/18 10:40 09/26/18 10:40 General appearance: Present: cooperative, A&O X 3, no acute distress, answers questions appropriately - Head Head exam: Present: atraumatic, normocephalic - Eye Eye exam: Present: normal appearance, sclera anicteric - ENT ENT exam: Present: mucous membranes dry - Neck Neck exam general surgery: Present: normal inspection, trachea midline - Respiratory Respiratory exam: Present: CTAB. Absent: rales, rhonchi, wheezes - Cardiovascular Cardiovascular exam: Present: RRR, +S1, +S2 - GI/Abdominal GI/Abdominal exam: Present: soft, no peritoneal signs. Absent: distended, firm, guarding, tenderness Additional comments: Surgical scar noted. - Rectal Rectal exam: Present: black stool - Extremities Exam Extremities exam: Present: warm - Neurological Exam Neurological exam: Present: no focal deficits - Psychiatric Psychiatric exam: Present: normal affect, normal mood - Skin Skin exam: Present: dry, intact, normal color, warm Results - Labs CBC & Chem 7: 09/26/18 09:17 09/26/18 03:09 Labs: Last Result 09/26/18 03:09 Calcium 8.1 L Entire Visit 09/26/18 09/26/18 03:09 09:17 Hgb 8.0 L 8.9 L Hct 23.1 L 25.3 L - ABG ABG results: PT/INR, D-dimer PT 12.0 Seconds (9.4-12.1) 09/23/18 18:20 Consult Discharge Plan - Plan Referrals: Demetra Ellison CNP [Primary Care Provider] - <Mariah Chan - Last Filed: 09/26/18 18:13> Date of Encounter: 09/26/18 Time of Encounter: 14:00 - Time Spent With Patient Total time spent is greater than 50% in coordination of care (as documented) at patient's floor/unit and/or counseling patient: GI History of Present Illness - Data of Consult Requesting Physician: Cale Lang MD - Consult Narrative History of present illness: Ms. Taylor is a 53 year old female - Constitutional Vitals: Temp Pulse Resp BP Pulse Ox 97.8 F 67 15 113/64 97 09/26/18 15:30 09/26/18 10:40 09/26/18 15:30 09/26/18 15:30 09/26/18 10:40 Results - Labs CBC & Chem 7: 09/26/18 09:17 09/26/18 03:09 Labs: Last Result 09/26/18 09/26/18 03:09 11:51 Calcium 8.1 L Iron 104 % Saturation 38 Transferrin 194 L Ferritin 1283 H Vitamin B12 929 Folate 19.9 H Entire Visit 09/26/18 09/26/18 09/26/18 03:09 09:17 11:51 Hgb 8.9 L Hct 25.3 L Ferritin 1283 H Folate 19.9 H - ABG ABG results: PT/INR, D-dimer PT 12.0 Seconds (9.4-12.1) 09/23/18 18:20 - Attending Attestation I have personally performed a face to face evaluation on this patient. I have reviewed and agree with the care plan. History and Exam by me shows: Patient seen. Complaining of black stool but she is taking Nephrocap. Denies abdominal pain . examination: abdomen is benign. Currently getting hemodialysis. A: ESRD on hemodialysis currently her iron sats are 38% and ferritin is 1283 B12 and folic acid is normal. Currently patient hemoglobin is between 9 and 10. Complaining of black stool but that could be due to Nephrocap. GI workup including EGD colonoscopy and capsule endoscopy has been negative. Recommendation: We will do an EGD tomorrow. 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
[2018-09-26 15:41] LABS: Folate 19.9 ng/mL (3.0-16.0)
[2018-09-26] MEDS ORDERED: Ipratropium/Albuterol Neb 3 ML IH PRN (15:42)
[2018-09-26 20:21] LABS: Hematocrit 26.9 % (35.3-44.9); Hemoglobin 9.1 g/dL (11.5-15.4)
--- NOTE | 2018-09-26 20:38 | Electrocardiograph Report ---
[address] [address] Test Date: 2018-09-23 Pat Name: Katlyn Talyor Department: 104 Room: 3A16 Gender: F Supervisor Vendor Quality: [place] : 1965 Requested By: Abelardo Ortiz Order Number: [id number] Reading MD: Charity Flower Measurements Intervals [place] Rate: 104 P: 71 [place]: 173 QRS: 47 QRSD: 86 T: 80 QT: 359 QTc: 419 Interpretive Statements Sinus tachycardia Nonspecific ST-T abnormalities Electronically Signed On 09-26-2018 20:36:36 EDT by Charity Flower
[2018-09-26] MEDS: Simethicone 80 MG TAB.CHEW PO PRN (21:48)
--- NOTE | 2018-09-26 23:53 | Nephrology Progress Note ---
Date of Encounter: 09/26/18 Time of Encounter: 12:00 - Assessment and Plan (1) End stage renal disease Current Visit: No Status: Acute Continue HD with UF as tolerated with no heparin used lytes stable (2) Melena Current Visit: Yes Status: Acute GI on board, recs appreciated (3) Anemia Current Visit: No Status: Chronic Hgb noted at 8.0, will monitor Transfusion parameters per primary team Qualifiers: Anemia type: unspecified type Qualified Code(s): D64.9 - Anemia, unspecified Subjective Interval history: Pt seen and examined on HD still with tarry stools today. Feels bloated Objective - Vital Signs Vital signs: Vital Signs Temp Pulse Resp BP Pulse Ox 09/26/18 18:54 98.9 F 87 15 125/70 98 09/26/18 15:30 97.8 F 15 113/64 09/26/18 15:00 96/58 09/26/18 14:45 103/57 09/26/18 14:30 115/59 09/26/18 14:15 121/70 09/26/18 14:00 128/60 09/26/18 13:45 114/63 09/26/18 13:30 139/68 09/26/18 13:15 130/68 09/26/18 13:00 123/61 09/26/18 12:45 130/60 09/26/18 12:30 130/61 09/26/18 12:15 134/70 09/26/18 12:00 121/50 09/26/18 11:45 122/60 09/26/18 11:30 98 F 14 111/59 09/26/18 10:40 98.3 F 67 15 126/80 97 09/26/18 06:53 97.6 F 73 15 123/75 99 09/26/18 03:40 97.6 F 78 16 123/64 100 Intake and Output 09/26/18 09/26/18 09/26/18 07:59 15:59 23:59 Intake Total 500 / 500 Output Total 0 / 3500 3500 / 3500 Balance 0 / -3000 -3000 / -3000 Intake: Oral 0 / 0 Intake, Rinseback and Flushes 500 / 500 Output: Urine 0 / 0 0 / 0 Total Dialysis (HD) Output 3500 / 3500 Other: Meal NPO Blood Glucose* 99 Hemodialysis Net Fluid Removed 3000 (mL) - Lab 09/26/18 19:56 09/26/18 03:09 Most recent lab results 09/26/18 03:09 Calcium 8.1 L Consult Discharge Plan - Plan Referrals: Demetra Ellison, DRUPAL PROGRAMMER [Primary Care Provider] -
[2018-09-27] MEDS: Pantoprazole 40 MG VIAL IVP SCH ×2 (05:33→17:53)
[2018-09-27 06:09] LABS: Hematocrit 23.2 % (35.3-44.9); Hemoglobin 7.8 g/dL (11.5-15.4); Mean Corpuscular HGB Conc 33.6 g/dL (31.6-35.5); Mean Corpuscular Hemoglobin 32.9 pg (28.0-33.3); Mean Corpuscular Volume 97.9 fL (83.0-100.0); Mean Platelet Volume 11.8 fL (9.4-12.4); Platelet Count 145 K/mcL (140-400); Red Blood Count 2.37 M/mcL (3.82-4.97); Red Cell Distribution Width 14.8 % (11.5-14.5); White Blood Count 4.6 K/mcL (4.3-11.1)
[2018-09-27] MEDS ORDERED: Renal Vitamin 1 CAP CAPSULE PO SCH (09:00)
[2018-09-27] MEDS: Cholecalciferol (D-3) 1,000 UNIT TABLET PO SCH (10:11)
[2018-09-27] MEDS: Loratadine 10 MG TABLET PO SCH (10:11)
--- NOTE | 2018-09-27 10:35 | Anesthesia Evaluation PreOp ---
Date of Encounter: 09/27/18 Time of Encounter: 10:33 - Past History Planned Operation: EGD Cardiac History: HTN, Hyperlipidemia, Arrhythmia (svt s/p ablation 3-4 years ago, AFib), Other (coronary artery disease, peripheral artery disease) Pulmonary History: Former smoker, COPD PHYSIOLOGIST History: Denies Any Significant HX Other Medical History: Renal (ESRD hemodialysis yesterday), Thyroid (Hypo), GERD Anesthesia History: No Prior Anesthetic Complications, Past Anesthesia (push enteroscopy, colonoscopy, R renal transplant, fistula removal/graft to LUE, cardiac ablation, cholecystectomy, hip replacement, thyroidectomy,) : No Alcohol Use: none Drug use: none Medications and Allergies Zolpidem [Ambien] 10 mg PO HS PRN 03/20/16 [History] Esomeprazole Magnesium [Nexium] 40 mg PO BID 05/20/18 [History] Fluticasone Propionate Nasal [Flonase] 1 spray NS DAILY PRN 05/20/18 [History] Sertraline [Zoloft] 50 mg PO DAILY 05/20/18 [History] Cetirizine HCl [All Day Allergy] 10 mg PO HS PRN 06/10/18 [History] Albuterol Neb [Proventil Neb] 2.5 mg IH Q8H PRN 09/25/18 [History] Albuterol Sulfate [Ventolin Hfa] 2 puff IH Q4H PRN 09/25/18 [History] Aspirin Enteric Coated [Aspirin EC] 81 mg PO DAILY 09/25/18 [History] Budesonide/Formoterol 160/4.5 [Symbicort 160/4.5] 2 puff IH BIDR 09/25/18 [History] Magnesium Oxide 400 mg PO MOWE 09/25/18 [History] Metoprolol [Lopressor] 25 mg PO BID 09/25/18 [History] Non-Formulary Medication 1 cap PO MO 09/25/18 [History] Non-Formulary Medication 1 tab PO DAILY 09/25/18 [History] cloNIDine HCl [CloNIDine HCl] 0.1 mg PO DAILY PRN 09/25/18 [History] Allergy/AdvReac Type Severity Reaction Status Date / Time cephalexin [From Keflex] Allergy Hives, ITCH Verified 09/25/18 15:31 - Meds/Allergy Pre-op Review Medications Reviewed: Yes Allergies Reviewed: Yes Beta Blockers on Current Med List: Yes If Beta Blockers taken, Date/Time (Last Dose taken): 10:11 Today Anesthesia Results - Labs 09/27/18 05:46 09/26/18 03:09 - Imaging Additional studies: TTE: Impressions: LVEF 60%. Normal LV chamber size, wall thickness and function. Indeterminate diastolic function. Normal right ventricular structure and function. Mild aortic stenosis. Mean gradient 15 mmHg. Mild to moderate mitral annular calcification. No significant mitral stenosis. Mean gradient 4 mmHg. No evidence of pulmonary hypertension. Anesthesia Exam Vital Signs/O2 Sat, Most Current Temp Pulse Resp BP Pulse Ox 98.1 F 73 15 110/59 98 09/27/18 07:13 09/27/18 07:13 09/27/18 07:13 09/27/18 07:13 09/27/18 07:13 NPO (# of Hours): > 8 hrs Pain Scale: 0 Pain Scale Used: Numeric (1 - 10) - HEENT Pupil (Motor): Pupils equal, EOMI Mallampati: II Teeth: Normal Oral Opening: Greater than 3 - PHYSIOLOGIST LOC: Oriented PHYSIOLOGIST Motor: Normal RUE, Normal LUE, Normal RLE, Normal LLE, Normal Face PHYSIOLOGIST Sensory: Normal: RUE, LUE, RLE, LLE, Face - Cardiac Rhythm: Regular Murmur: None JVD: No Carotid Bruit: No - Pulmonary Breath Sounds: bilateral Clear Respiratory Effort: Symmetrical Anesthesia Assess/Plan ASA Score: 4 Level of consciousness: Cooperative Anesthetic Plan: MAC Autologous Blood: Yes Monitoring Plan: Standard Monitors Recovery Plan: Other
--- NOTE | 2018-09-27 11:46 | Internal Med Progress Note ---
Hospitalist Progress Note - Encounter Date of Encounter: 09/27/18 Time of Encounter: 08:00 - Subjective Interval History: Patient was seen and examined at bedside. Reports that she did have an episode of dark stool however was also with maroon colored blood products. She denies any syncope, dizziness, palpitations or loss of consciousness. Denies any hematemesis or hematochezia. I discussed that GI has been consulted and she will go for endoscopy today and she is in agreement. She is to remain nothing by mouth. Will continue to monitor her blood levels and will transfuse her if is less than 7. - Exam Vitals: Temp Pulse Resp BP Pulse Ox 98.3 F 72 15 121/68 97 09/27/18 11:11 09/27/18 11:11 09/27/18 11:11 09/27/18 11:11 09/27/18 11:11 Exam: General: Patient is alert, oriented, no acute distress, obese Head: atraumatic, normocephalic, Eye: normal appearance, PERRL, no scleral icterus, no conjunctival injection ENT: mucous membranes moist, normal external ear exam Neck: normal inspection, trachea midline, full ROM, Chest: normal inspection, symmetric chest rise Respiratory: Good respiratory effort. Bilateral breath sounds are clear without wheezing, crackles, or rhonchi. Cardiovascular: Regular rate and rhythm. s1 and s2 No clicks, rubs, gallops, or murmors. Abdomen: Bowel sounds present normoactive x-4 quadrants. Abdomen is soft, nondistended. no Epigastric tenderness. No guarding or rebound. No organomegaly noted, obese musculoskeletal: Spontaneously moving all extremities. no edema, no calf tenderness Skin: warm, dry, intact. Neuro: Alert and oriented 3, focal deficit Psych: Patient's affect is normal - Assessment and Plan (1) Melena Current Visit: Yes Status: Acute Assessment and Plan: Upper GI bleed vs LGIB ? AVM as no pathologies have been identified on multiple EGD and colonoscopies recently had capsule endoscopy which was inconclusive on PPI BID. surgery consulted on 09/24 with elevated patient and recommended to hold off endoscopy and colonoscopy for now and will stay on board incase she becomes hemodynamically unstable nuclear scan on 09/24/2018 was negative avoid NSAIDS and anticoagulation Gi on board for endoscopy today. H&H trended down to 7.9 today we will continue to monitor every 6 hours and transfuse if below 7 (2) End stage renal disease Current Visit: No Status: Acute Assessment and Plan: ESRD on HD - Wednesday nephrology on board (3) Atrial fibrillation Current Visit: No Status: Resolved Assessment and Plan: Atrial fibrillation: Patient currently in sinus rhythm and stable. not on OAC is on ASA which is held due to GIB and she understands risks and benefits. (4) Obese Current Visit: Yes Status: Acute Assessment and Plan: was counseled (5) DVT prophylaxis Current Visit: No Status: Acute Assessment and Plan: scds - Time Spent with Patient Total time spent is greater than 50% in coordination of care (as documented) at patient's floor/unit and/or counseling patient: Internal Medicine: Result - Labs CBC & Chem 7: 09/27/18 05:46 09/26/18 03:09 Labs: Short CBC 09/26/18 09/27/18 Range/Units 19:56 05:46 WBC 4.6 (4.3-11.1) K/mcL Hgb 9.1 L 7.8 L (11.5-15.4) g/dL Hct 26.9 L 23.2 L (35.3-44.9) % Plt Count 145 (140-400) K/mcL BMP 09/26/18 03:09 Sodium 128 L Potassium 4.3 Chloride 87 L Carbon Dioxide 23 BUN 72 H Creatinine 10.23 H Glucose 88 Calcium 8.1 L - ABG Interpretation ABG results: PT/INR, D-dimer PT 12.0 Seconds (9.4-12.1) 09/23/18 18:20 Consult Discharge Plan - Plan Referrals: Demetra Ellison, HUB INVENTORY SPECIALIST [Primary Care Provider] - (3) Atrial fibrillation Qualifiers: Atrial fibrillation type: unspecified Qualified Code(s): I48.91 - Unspecified atrial fibrillation (4) Obese Qualifiers: Obesity type: due to excess calories Body mass index: BMI 32.0-32.9
[2018-09-27] MEDS ORDERED: Lidocaine -MPF 2% 2 ML VIAL ONE (13:07)
[2018-09-27] MEDS ORDERED: *HR* Propofol 200 MG/20 ML VIAL IVP ONE (13:07)
[2018-09-27] MEDS: 0.9 % Sodium Chloride 500 ML IVC SCH (13:50)
[2018-09-27 16:29] LABS: Hematocrit 26.7 % (35.3-44.9); Hemoglobin 8.9 g/dL (11.5-15.4)
[2018-09-27] MEDS: Simethicone 80 MG TAB.CHEW PO PRN (19:58)
[2018-09-27] MEDS ORDERED: Ondansetron 4 MG/2 ML VIAL IVP ONE (21:14)
[2018-09-27 21:50] LABS: Hematocrit 25.1 % (35.3-44.9); Hemoglobin 8.8 g/dL (11.5-15.4)
--- NOTE | 2018-09-28 00:58 | Nephrology Progress Note ---
Date of Encounter: 09/27/18 Time of Encounter: 16:00 - Assessment and Plan (1) End stage renal disease Current Visit: No Status: Acute s/p HD yesterday, next HD planned tomorrow am before scope lytes stable (2) Melena Current Visit: Yes Status: Acute GI on board, recs appreciated (3) Anemia Current Visit: No Status: Chronic Hgb noted at 7.8, will monitor Transfusion parameters per primary team Will dose with EPo today and of note; this is NOT anemia of CKD in a patient on EPO 3 times a week adjust to need and on iv iron when needed Qualifiers: Anemia type: unspecified type Qualified Code(s): D64.9 - Anemia, unspecified Subjective Interval history: Pt seen and examined with friend at bedside s/p EGD and upset that "nothing was found". colonoscopy planned tomorrow by GI Objective - Vital Signs Vital signs: Vital Signs Temp Pulse Resp BP Pulse Ox 09/27/18 21:38 16 100 09/27/18 19:33 97.7 F 77 15 130/84 99 09/27/18 15:23 98.1 F 75 14 134/75 100 09/27/18 13:46 73 18 137/46 99 09/27/18 11:11 98.3 F 72 15 121/68 97 09/27/18 07:13 98.1 F 73 15 110/59 98 09/27/18 05:19 98.4 F 71 15 111/64 100 Intake and Output 09/27/18 09/27/18 09/28/18 15:59 23:59 07:59 Intake Total 0 / 480 480 / 480 Balance 0 / 480 480 / 480 Intake: Oral 0 / 480 480 / 480 Other: Meal Lunch clears Percent of Meal Consumed 0% 0% # Bowel Movements 1 Blood Glucose* 94 88 - Lab 09/27/18 21:24 09/26/18 03:09 Consult Discharge Plan - Plan Referrals: Demetra Ellison CNP [Primary Care Provider] -
[2018-09-28 03:58] LABS: Hematocrit 21.8 % (35.3-44.9); Hemoglobin 7.4 g/dL (11.5-15.4); Mean Corpuscular HGB Conc 33.9 g/dL (31.6-35.5); Mean Corpuscular Volume 97.3 fL (83.0-100.0); Mean Platelet Volume 12.1 fL (9.4-12.4); Platelet Count 140 K/mcL (140-400); Red Blood Count 2.24 M/mcL (3.82-4.97); Red Cell Distribution Width 14.8 % (11.5-14.5)
[2018-09-28 04:00] LABS: White Blood Count 7.2 K/mcL (4.3-11.1)
[2018-09-28 04:15] LABS: Calcium 8.5 mg/dL (8.6-10.3); Potassium 3.9 mEq/L (3.5-5.1)
[2018-09-28] MEDS: Pantoprazole 40 MG VIAL IVP SCH ×2 (05:37→20:42)
[2018-09-28] MEDS: 0.9 % Sodium Chloride 500 ML IVC SCH (07:19)
[2018-09-28] MEDS ORDERED: 0.9 % Sodium Chloride 250 ML IVC PRN (08:19)
[2018-09-28] MEDS ORDERED: 0.9 % Sodium Chloride 1,000 ML PRIME SCH (08:30)
--- NOTE | 2018-09-28 08:45 | Internal Med Progress Note ---
Hospitalist Progress Note - Encounter Date of Encounter: 09/28/18 Time of Encounter: 08:45 - Subjective Interval History: Patient seen and examined during dialysis. She did receive 2 units of PRBC during dialysis. Did have blood in her stool yesterday on and off. Complain of slight shortness of breath when she developed A. fib at the end of her dialysis. Denied any chest pain. The have on and off low back pain. - Exam Vitals: Temp Pulse Resp BP Pulse Ox 98.0 F 83 16 109/53 100 09/28/18 06:34 09/28/18 06:34 09/28/18 06:34 09/28/18 06:34 09/28/18 06:34 Exam: General: In no acute distress. Respiratory exam: CTAB. no accessory muscle use, rales, rhonchi, wheezes Cardiovascular exam: irregular, tachycardic, +S1, +S2. no murmur, gallop, rubs. GI/Abdominal exam: Non-tender, Non-distended, normal bowel sounds, soft, no peritoneal signs. Extremities exam: no pedal edema, pulses palpable in b/l lower extremities. no calf tenderness. Fistula on LUE. Neurological exam: CN II-XII intact, AO X3, no focal deficits. Skin exam: No skin rash - Assessment and Plan (1) DVT prophylaxis Current Visit: No Status: Acute (2) End stage renal disease Current Visit: No Status: Acute (3) Melena Current Visit: Yes Status: Acute (4) Atrial fibrillation Current Visit: No Status: Resolved (5) Obese Current Visit: Yes Status: Acute - Summary of Assessment and Plan Summary of Assessment and Plan: Assessment Acute Acute blood loss anemia due to GI bleed Recurrent GI bleed Afib with RVR ESRD on HD Chronic HTN non obtructive CAD HLD PAD h/o Rt kidney transplant Plan - s/p EGD on 09/27/18 which was unremarkable. Bleeding scan on 09/24 without signs of active bleeding. Continue to have blood in stool. Plan to have colonoscopy today. Had multiple colonosocpies including push enteroscopy and capsule endoscopy this year. - did have drop in HB to 7.4 from 8.8. Got 2 prbc during dialysis. Monitor Hb daily and transfuse as needed. GI following. - Did develop afib with RVR during dialysis today. likely secondary to anemia. Had ablation before for SVT. Not on AC due to GI bleed. aspirin also has been held. 5 mg iv metoprolol given. Resume home metoprolol which was held due to colonoscopy. will give prn metoprolol 5mg iv for rate control. keep on tele. Had LHC at [facility] based on previous cardiology note. Had non obstructive CAD. - Nephrology following for dialysis needs. - hold antihypertensives. - scd for dvt ppx - Time Spent with Patient Total time spent is greater than 50% in coordination of care (as documented) at patient's floor/unit and/or counseling patient: Internal Medicine: Result - Labs CBC & Chem 7: 09/28/18 09:04 09/28/18 03:18 Labs: Short CBC 09/27/18 09/27/18 09/28/18 Range/Units 16:14 21:24 03:18 WBC 7.2 D (4.3-11.1) K/mcL Hgb 8.9 L 8.8 L 7.4 L (11.5-15.4) g/dL Hct 26.7 L 25.1 L 21.8 L (35.3-44.9) % Plt Count 140 (140-400) K/mcL BMP 09/28/18 03:18 Sodium 130 L Potassium 3.9 Chloride 92 L Carbon Dioxide 20 L BUN 57 H Creatinine 8.34 H Glucose 94 Calcium 8.5 L - ABG Interpretation ABG results: PT/INR, D-dimer PT 12.0 Seconds (9.4-12.1) 09/23/18 18:20 Consult Discharge Plan - Plan Referrals: Demetra Ellison, SHAKE LOADER [Primary Care Provider] - (4) Atrial fibrillation Qualifiers: Atrial fibrillation type: unspecified Qualified Code(s): I48.91 - Unspecified atrial fibrillation (5) Obese Qualifiers: Obesity type: due to excess calories Body mass index: BMI 32.0-32.9
[2018-09-28] MEDS ORDERED: Darbepoetin 100 MCG/0.5 ML SYRINGE SQ SCH (09:00)
[2018-09-28 09:22] LABS: Hematocrit 19.7 % (35.3-44.9); Hemoglobin 6.7 g/dL (11.5-15.4)
[2018-09-28] MEDS ORDERED: 0.9 % Sodium Chloride 1,000 ML ONE (11:38)
[2018-09-28] MEDS ORDERED: *HR* Metoprolol 5 MG/5 ML VIAL IVP ONE (13:00)
[2018-09-28] MEDS: Loratadine 10 MG TABLET PO SCH (13:20)
[2018-09-28] MEDS: Renal Vitamin 1 CAP CAPSULE PO SCH (13:20)
[2018-09-28] MEDS: Cholecalciferol (D-3) 1,000 UNIT TABLET PO SCH (13:20)
[2018-09-28] MEDS ORDERED: *HR* Metoprolol 5 MG/5 ML VIAL IVP PRN (15:29)
--- NOTE | 2018-09-28 17:12 | Anesthesia Evaluation PreOp ---
Date of Encounter: 09/28/18 Time of Encounter: 17:15 - Past History Planned Operation: Colonoscopy Cardiac History: HTN, Hyperlipidemia, Arrhythmia (AFib), Other (CAD Anemia (transfused today 2 units PRBC)) Pulmonary History: Former smoker, COPD ESCROW CLERK History: Denies Any Significant HX Other Medical History: Renal (ESRD dialyzed today and transfused 2 units PRBC), Thyroid, GERD Anesthesia History: No Prior Anesthetic Complications : No Alcohol Use: none Drug use: none Medications and Allergies Zolpidem [Ambien] 10 mg PO HS PRN 03/20/16 [History] Esomeprazole Magnesium [Nexium] 40 mg PO BID 05/20/18 [History] Fluticasone Propionate Nasal [Flonase] 1 spray NS DAILY PRN 05/20/18 [History] Sertraline [Zoloft] 50 mg PO DAILY 05/20/18 [History] Cetirizine HCl [All Day Allergy] 10 mg PO HS PRN 06/10/18 [History] Albuterol Neb [Proventil Neb] 2.5 mg IH Q8H PRN 09/25/18 [History] Albuterol Sulfate [Ventolin Hfa] 2 puff IH Q4H PRN 09/25/18 [History] Aspirin Enteric Coated [Aspirin EC] 81 mg PO DAILY 09/25/18 [History] Budesonide/Formoterol 160/4.5 [Symbicort 160/4.5] 2 puff IH BIDR 09/25/18 [History] Magnesium Oxide 400 mg PO MOWE 09/25/18 [History] Metoprolol [Lopressor] 25 mg PO BID 09/25/18 [History] Non-Formulary Medication 1 cap PO MO 09/25/18 [History] Non-Formulary Medication 1 tab PO DAILY 09/25/18 [History] cloNIDine HCl [CloNIDine HCl] 0.1 mg PO DAILY PRN 09/25/18 [History] Allergy/AdvReac Type Severity Reaction Status Date / Time cephalexin [From Keflex] Allergy Hives, ITCH Verified 09/25/18 15:31 - Meds/Allergy Pre-op Review Medications Reviewed: Yes Allergies Reviewed: Yes Beta Blockers on Current Med List: Yes (Metoprolol today 6412) Anesthesia Results - Labs 09/28/18 09:04 09/28/18 03:18 - Imaging EKG: report reviewed (Sinus Tach) Additional studies: ECHO 2019 EF 55%, no pulm htn, mild Anesthesia Exam O2 Sat Weight 92.2 kg O2 Sat by Pulse Oximetry 97 O2 Sat by Pulse Oximetry 99 O2 Sat by Pulse Oximetry 100 O2 Sat by Pulse Oximetry 100 O2 Sat by Pulse Oximetry 100 O2 Sat by Pulse Oximetry 100 O2 Sat by Pulse Oximetry 99 Vital Signs Temp Pulse Resp BP Pulse Ox 98 F 111 18 114/76 96 09/23/18 16:22 09/23/18 16:22 09/23/18 16:22 09/23/18 16:22 09/23/18 16:22 Height: 5'6 Weight: 203 NPO (# of Hours): MN Pain Scale: 0 - HEENT Pupil (Motor): Pupils equal, EOMI Mallampati: II Teeth: Normal Oral Opening: Greater than 3 - ESCROW CLERK LOC: Oriented ESCROW CLERK Motor: Normal RUE, Normal LUE, Normal RLE, Normal LLE, Normal Face ESCROW CLERK Sensory: Normal: RUE, LUE, RLE, LLE, Face - Cardiac Rhythm: Regular Murmur: None JVD: No Carotid Bruit: No - Pulmonary Breath Sounds: bilateral Clear Respiratory Effort: Symmetrical Anesthesia Assess/Plan ASA Score: 4 (Arrhythmia HTN Anemia ESRD) Level of consciousness: Cooperative, Oriented Anesthetic Plan: MAC Autologous Blood: No Monitoring Plan: Standard Monitors Recovery Plan: Other (Discussed MAC, agrees to proceed)
[2018-09-28] MEDS ORDERED: Propofol 500 MG/50 ML INFUS..BTL ONE (17:30)
[2018-09-28] MEDS ORDERED: *HR* Propofol 200 MG/20 ML VIAL IVP ONE ×2 (17:57→18:12)
[2018-09-28] MEDS: Budesonide/Formoterol 160/4.5 1 PUFF INH IH SCH (20:15)
--- NOTE | 2018-09-28 23:57 | Nephrology Progress Note ---
Date of Encounter: 09/28/18 Time of Encounter: 12:00 - Assessment and Plan (1) End stage renal disease Current Visit: No Status: Acute (2) Melena Current Visit: Yes Status: Acute (3) Anemia Current Visit: No Status: Chronic Qualifiers: Anemia type: unspecified type Qualified Code(s): D64.9 - Anemia, unspecified Subjective Interval history: Pt seen and examined with friend at bedside s/p EGD and upset that "nothing was found". colonoscopy planned tomorrow by GI Objective - Vital Signs Vital signs: Vital Signs Temp Pulse Resp BP Pulse Ox 09/28/18 20:15 16 98 09/28/18 19:37 98.1 F 83 16 117/51 99 09/28/18 18:58 97.7 F 76 16 113/61 99 09/28/18 17:21 99.0 F 85 16 122/52 99 09/28/18 15:51 99.0 F 83 16 126/76 97 09/28/18 14:42 103 126/76 09/28/18 14:34 126/76 09/28/18 13:54 118 94/60 09/28/18 13:31 98.4 F 142 16 97/63 99 09/28/18 12:18 98.6 F 16 123/77 09/28/18 11:50 107/65 09/28/18 11:35 94/62 09/28/18 11:20 91/66 09/28/18 11:16 98.6 F 116 20 91/66 09/28/18 11:05 101/50 09/28/18 11:01 98.5 F 126 18 104/75 09/28/18 10:52 97.9 F 123 16 97/50 100 09/28/18 10:50 88/42 09/28/18 10:37 98.2 F 78 16 96/48 09/28/18 10:35 96/48 09/28/18 10:22 97.8 F 76 16 102/41 09/28/18 10:20 96/55 09/28/18 10:05 97/50 09/28/18 09:50 93/48 09/28/18 09:35 104/56 09/28/18 09:20 97/55 09/28/18 09:05 106/73 09/28/18 08:50 97.8 F 18 116/58 09/28/18 06:34 98.0 F 83 16 109/53 100 09/28/18 05:17 97.8 F 83 15 117/71 100 Intake and Output 09/28/18 09/28/18 09/28/18 07:59 15:59 23:59 Intake Total 0 / 1364 1364 / 1364 Output Total 0 2054 Balance 0 / -691 -691 / -691 Intake: IV Fluids 64 / 64 0.9 % Sodium Chloride 500 ML @ 64 / 64 50 mls/hr IVC .Q10H ANNIE Rx#: [id number] Oral 0 / 0 Blood Product 700 / 700 Rbcs Leuko Poor As-1 Unit 350 / 350 [id number] Rbcs Leuko Poor As-1 Unit 350 / 350 [id number] Intake, Rinseback and Flushes 600 / 600 Output: Urine 0 / 0 Total Dialysis (HD) Output 2054 Other: Stool Consistency liquid Stool Color Yellow # Bowel Movements 5 Weight 92.2 kg Blood Glucose* 96 89 Hemodialysis Net Fluid Removed 755 (mL) Patient Weight 09/28/18 23:59 Weight 92.2 kg - Lab 09/28/18 09:04 09/28/18 03:18 Consult Discharge Plan - Plan Referrals: Demetra Ellison CNP [Primary Care Provider] -
[2018-09-29 03:56] LABS: Hematocrit 27.4 % (35.3-44.9); Mean Corpuscular HGB Conc 33.9 g/dL (31.6-35.5); Mean Corpuscular Hemoglobin 30.8 pg (28.0-33.3); Mean Platelet Volume 12.2 fL (9.4-12.4); Platelet Count 119 K/mcL (140-400); Red Blood Count 3.02 M/mcL (3.82-4.97); Red Cell Distribution Width 16.3 % (11.5-14.5); White Blood Count 6.7 K/mcL (4.3-11.1)
[2018-09-29 04:03] LABS: Calcium 8.7 mg/dL (8.6-10.3); Potassium 4.2 mEq/L (3.5-5.1)
[2018-09-29 04:15] LABS: Hemoglobin 9.3 g/dL (11.5-15.4); Mean Corpuscular Volume 90.7 fL (83.0-100.0)
[2018-09-29] MEDS: Pantoprazole 40 MG VIAL IVP SCH (05:17)
[2018-09-29] MEDS: Budesonide/Formoterol 160/4.5 1 PUFF INH IH SCH (07:57)
--- NOTE | 2018-09-29 10:15 | Discharge Summary ---
- NOTES TO OUTPATIENT PROVIDER Notes to Outpatient Provider: Patient will need to follow up with PCP within 1-2 weeks. To get CBC on Wednesday. Patient will need to follow with GI in 2 weeks. Discussed with patient that if she have any melanotic stool after 2 days she needs to contact us from nephrology for possible capsule endoscopy her bleeding scan. Orders not resulted at time of discharge: Pending orders 09/23/18 17:56 Red Blood Cells [BBK] Stat Type and Screen [BBK] Stat 09/27/18 14:28 Surgical Pathology [PTH] Routine 09/30/18 04:00 Basic Metabolic Panel AM 0400 CBC no Diff [Complete Blood Count w/o Diff] [HEME] AM 04010/01/18 04:00 Basic Metabolic Panel AM 0400 CBC no Diff [Complete Blood Count w/o Diff] [HEME] AM 04010/02/18 04:00 Basic Metabolic Panel AM 0400 CBC no Diff [Complete Blood Count w/o Diff] [HEME] AM 04010/03/18 04:00 Basic Metabolic Panel AM 0400 CBC no Diff [Complete Blood Count w/o Diff] [HEME] AM 04010/04/18 04:00 Basic Metabolic Panel AM 0400 CBC no Diff [Complete Blood Count w/o Diff] [HEME] AM 04010/05/18 04:00 Basic Metabolic Panel AM 0400 CBC no Diff [Complete Blood Count w/o Diff] [HEME] AM 04010/06/18 04:00 Basic Metabolic Panel AM 0400 CBC no Diff [Complete Blood Count w/o Diff] [HEME] AM 04010/07/18 04:00 Basic Metabolic Panel AM 0400 CBC no Diff [Complete Blood Count w/o Diff] [HEME] AM 0400 Date of Encounter: 09/29/18 Time of Encounter: 10:13 - Discharge Diagnosis (1) DVT prophylaxis Priority: Secondary Status: Acute (2) End stage renal disease Priority: Secondary Status: Acute (3) Melena Priority: Primary Status: Acute (4) Obese Priority: Secondary Status: Acute Qualifiers: Obesity type: due to excess calories Body mass index: BMI 32.0-32.9 Qualified Code(s): E66.09 - Other obesity due to excess calories; Z68.32 - Body mass index (BMI) 32.0-32.9, adult (5) Anemia due to blood loss, acute Priority: Primary Status: Acute (6) Lower gastrointestinal hemorrhage Priority: Primary Status: Acute (7) ESRD on dialysis Priority: Secondary Status: Chronic (8) HLD (hyperlipidemia) Priority: Secondary Status: Chronic Qualifiers: Hyperlipidemia type: unspecified Qualified Code(s): E78.5 - Hyperlipidemia, unspecified (9) HTN (hypertension) Priority: Secondary Status: Chronic Qualifiers: Hypertension type: essential hypertension Qualified Code(s): I10 - Essential (primary) hypertension Hospital course: Ms. Taylor is a 53 year old female past medical history of end-stage renal disease on dialysis, coronary artery disease, atrial fibrillation not on antibiotics and due to GI bleed, hypertension, peripheral artery disease, SVT status post ablation who recently had multiple admissions for GI bleed came in with complain of dark melanotic stool for past 2 days. Patient was admitted for GI bleed. Gastroenterology was consulted. Patient had extensive workup before including colonoscopies , push enteroscopy and Endoscopy. Patient Had EGD Done Which Was Unremarkable. Patient did continue to have dark bowel movement and hemoglobin drifted downward needing blood transfusion. She got dialyzed during her stay with nephrology and did develop A. fib with RVR as she did not get her beta leno dosage which resolved quickly with IV metoprolol and resuming home medication. Patient had colonoscopy with slightly poor prep with dark stool in entire colon. Examined portion of ileum was normal. Patient had only one black bowel movement after procedure. Patient without any other complaints. Patient wants to go home and is otherwise stable to be discharged however we will transfuse 1 PRBC before discharge to keep hemoglobin around 10. Patient will need follow-up CBC in 1 week as well as follow with PCP and gastroenterology within 1-2 weeks. Discussed patient to call GI if starts having black bowel movement after 2 days of discharge or has large bloody kathleen bowel movement. No changes were made with her medications. Discharge discussed with: patient, family, nurse, social work, case management - Time Spent with Patient Total time spent providing and/or coordinating discharge services: Time spent: Greater than 30 minutes (40) - Discharge Medications Prescriptions: New Montelukast [Singulair] 10 mg PO QPM tablet Cholecalciferol (D-3) [Vitamin D] 1,000 unit PO DAILY tablet Renal Vitamin [Renal Caps Softgel] 1 cap PO 3XW capsule Continued Zolpidem [Ambien] 10 mg PO HS PRN PRN Reason: Sleep Sertraline [Zoloft] 50 mg PO DAILY Esomeprazole Magnesium [Nexium] 40 mg PO BID Fluticasone Propionate Nasal [Flonase] 1 spray NS DAILY PRN PRN Reason: Allergy Symptoms Cetirizine HCl [All Day Allergy] 10 mg PO HS PRN PRN Reason: Allergy Symptoms Albuterol Neb [Proventil Neb] 2.5 mg IH Q8H PRN PRN Reason: Shortness Of Breath Albuterol Sulfate [Ventolin Hfa] 2 puff IH Q4H PRN PRN Reason: Shortness Of Breath Aspirin Enteric Coated [Aspirin EC] 81 mg PO DAILY cloNIDine HCl [CloNIDine HCl] 0.1 mg PO DAILY PRN PRN Reason: Blood Pressure Magnesium Oxide 400 mg PO MOWE Metoprolol [Lopressor] 25 mg PO BID Non-Formulary Medication 1 cap PO MO Non-Formulary Medication 1 tab PO DAILY Budesonide/Formoterol 160/4.5 [Symbicort 160/4.5] 2 puff IH BIDR Home Medications: Zolpidem [Ambien] 10 mg PO HS PRN 03/20/16 [History] Esomeprazole Magnesium [Nexium] 40 mg PO BID 05/20/18 [History] Fluticasone Propionate Nasal [Flonase] 1 spray NS DAILY PRN 05/20/18 [History] Sertraline [Zoloft] 50 mg PO DAILY 05/20/18 [History] Cetirizine HCl [All Day Allergy] 10 mg PO HS PRN 06/10/18 [History] Albuterol Neb [Proventil Neb] 2.5 mg IH Q8H PRN 09/25/18 [History] Albuterol Sulfate [Ventolin Hfa] 2 puff IH Q4H PRN 09/25/18 [History] Aspirin Enteric Coated [Aspirin EC] 81 mg PO DAILY 09/25/18 [History] Budesonide/Formoterol 160/4.5 [Symbicort 160/4.5] 2 puff IH BIDR 09/25/18 [History] Magnesium Oxide 400 mg PO MOWE 09/25/18 [History] Metoprolol [Lopressor] 25 mg PO BID 09/25/18 [History] Non-Formulary Medication 1 cap PO MO 09/25/18 [History] Non-Formulary Medication 1 tab PO DAILY 09/25/18 [History] cloNIDine HCl [CloNIDine HCl] 0.1 mg PO DAILY PRN 09/25/18 [History] Cholecalciferol (D-3) [Vitamin D] 1,000 unit PO DAILY tablet 09/29/18 [Rx] Montelukast [Singulair] 10 mg PO QPM tablet 09/29/18 [Rx] Renal Vitamin [Renal Caps Softgel] 1 cap PO 3XW capsule 09/29/18 [Rx] Allergies/Adverse Reactions: Allergy/AdvReac Type Severity Reaction Status Date / Time cephalexin [From Keflex] Allergy Hives, ITCH Verified 09/25/18 15:31 Date of admission: 09/25/18 14:16 Primary care physician: Demetra Ellison, Consults: 09/23/18 20:21 Consult to Gastroenterology [CONS] Routine Consulting Provider: Gastroenterology Mel Reason for Consult: Recurrent UGIB Call Completed: No 09/24/18 11:54 Consult to Nephrology [CONS] Routine Consulting Provider: Kidney Mel/JIGNESH/HEMANTH/JEFF Reason for Consult: esrd on HD Call Completed: No 09/24/18 15:01 Consult to Surgery [CONS] Routine Consulting Provider: Acute Care Surgery Reason for Consult: GIB Call Completed: Yes 09/26/18 08:30 Consult to Dialysis [CONS] ONCE 09/28/18 08:30 Consult to Dialysis [CONS] ONCE Discharging clinician: Emilia Cardenas Ocasio - Constitutional Vitals: Temp Pulse Resp BP Pulse Ox 98.3 F 74 18 126/76 100 09/29/18 07:59 09/29/18 07:59 09/29/18 07:59 09/29/18 07:59 09/29/18 07:59 Exam: General: In no acute distress. Respiratory exam: CTAB. no accessory muscle use, rales, rhonchi, wheezes Cardiovascular exam: irregular, +S1, +S2. no murmur, gallop, rubs. GI/Abdominal exam: Non-tender, Non-distended, normal bowel sounds, soft, no peritoneal signs. Extremities exam: no pedal edema, pulses palpable in b/l lower extremities. no calf tenderness. Fistula on LUE. Neurological exam: CN II-XII intact, AO X3, no focal deficits. Skin exam: No skin rash - Patient Status Disposition: Home, Self-Care Condition: Good - Ambulatory Orders Ambulatory Orders: Complete Blood Count [HEME] Time Frame: 10/03/18, Facility: [facility], Location: Lab - Discharge Instructions Follow Up With: Demetra Ellison CNP [Primary Care Provider] - (Web request. Office will call patient with date and time of appointment. Thank you) Abelardo Velazquez CNP [Advanced Practice Nurse] - (Web request. Office will call with date and time of appointment. Thank you) - Diet and Activity Activity: increase activity as tolerated
[2018-09-29] MEDS: Cholecalciferol (D-3) 1,000 UNIT TABLET PO SCH (10:18)
[2018-09-29] MEDS: Loratadine 10 MG TABLET PO SCH (10:18)
--- NOTE | 2018-09-29 13:05 | Gastroenterology Progress Note ---
<Abelardo Velazquez - Last Filed: 09/29/18 13:02> Date of Encounter: 09/29/18 Time of Encounter: 11:20 - Assessment and plan (1) Melena Status: Acute Assessment and plan: Patient has had an extensive negative workup for GI bleeding, including EGD, push enteroscopy, colonoscopy, and capsule endoscopy. Patient with continued black stool. EGD with enlargement gastric folds otherwise negative. Colonoscopy with dark stool in the entire colon, if recurrent bleeding complete bleeding scan, if continued melena will complete capsule endoscopy as outpatient. Patient instructed to call office with any bleeding noted. Repeat CBC 5-7 days after discharge. Follow up in GI office in 2 weeks. (2) Anemia Status: Chronic Assessment and plan: Transfuse to keep Hgb around 10, then ok to discharge. Check CBC in 5-7 days after discharge. Qualifiers: Anemia type: unspecified type Qualified Code(s): D64.9 - Anemia, unspecified - Time Spent With Patient Total time spent is greater than 50% in coordination of care (as documented) at patient's floor/unit and/or counseling patient: - Subjective Interval history: Patient reports feeling well. Patient continues to report black tarry stools. EGD and colonoscopy completed with no obvious source of bleeding found. - Constitutional Vitals: Temp Pulse Resp BP Pulse Ox 98.6 F 72 20 144/78 99 09/29/18 12:47 09/29/18 12:47 09/29/18 12:47 09/29/18 12:47 09/29/18 12:47 General appearance: Present: cooperative, A&O X 3, no acute distress, answers questions appropriately - Head Head exam: Present: atraumatic, normocephalic - Eye Eye exam: Present: normal appearance, sclera anicteric - ENT ENT exam: Present: mucous membranes moist - Neck Neck exam general surgery: Present: normal inspection, trachea midline - Respiratory Respiratory exam: Present: CTAB. Absent: rales, rhonchi - Cardiovascular Cardiovascular exam: Present: RRR, +S1, +S2 - GI/Abdominal GI/Abdominal exam: Present: soft, no peritoneal signs. Absent: distended, firm, guarding, tenderness - Rectal Additional comments: Dark stool on rectal exam, no black stool noted. - Extremities Exam Extremities exam: Present: warm - Neurological Exam Neurological exam: Present: no focal deficits - Psychiatric Psychiatric exam: Present: normal affect, normal mood - Skin Skin exam: Present: dry, intact, normal color, warm Results - Labs CBC & Chem 7: 09/29/18 03:37 09/29/18 03:37 Labs: Last Result 09/29/18 03:37 Calcium 8.7 Entire Visit 09/29/18 03:37 Hgb 9.3 L D Hct 27.4 L - ABG ABG results: PT/INR, D-dimer PT 12.0 Seconds (9.4-12.1) 09/23/18 18:20 Consult Discharge Plan - Plan Instructions: Anemia (GEN) Referrals: Demetra Ellison FISHING VESSEL MATE [Primary Care Provider] - (Web request. Office will call patient with date and time of appointment. Thank you) Abelardo Velazquez FISHING VESSEL MATE [Advanced Practice Nurse] - (Web request. Office will call with date and time of appointment. Thank you) <Mariah Chan - Last Filed: 09/29/18 18:04> Date of Encounter: 09/29/18 Time of Encounter: 12:00 - Time Spent With Patient Total time spent is greater than 50% in coordination of care (as documented) at patient's floor/unit and/or counseling patient: - Constitutional Vitals: Temp Pulse Resp BP Pulse Ox 98.1 F 72 15 134/88 99 09/29/18 14:58 09/29/18 14:58 09/29/18 14:58 09/29/18 14:58 09/29/18 12:47 Results - Labs CBC & Chem 7: 09/29/18 15:50 09/29/18 03:37 Labs: Entire Visit 09/29/18 15:50 Hgb 10.3 L Hct 30.3 L - ABG ABG results: PT/INR, D-dimer PT 12.0 Seconds (9.4-12.1) 09/23/18 18:20 - Attending Attestation I have personally performed a face to face evaluation on this patient. I have reviewed and agree with the care plan. History and Exam by me shows: Patient seen and per patient stool is dark green in color. On examination: Abdomen is benign. Assessment: Patient with multiple medical problem including incisional disease on hemodialysis now with recurrent lower GI bleed with dark stool. Enteroscopy and colonoscopy with TI examination was unremarkable other than some dark colored stool in the colon. Recommendation: Patient to call office if she has recurrence of her dark stool and she will need a capsule done stat
[2018-09-29 14:59] VITALS: BP 134/88
[2018-09-29 16:08] LABS: Hematocrit 30.3 % (35.3-44.9); Hemoglobin 10.3 g/dL (11.5-15.4)
== END 2018-09-29 17:47 | disposition home or self-care (01) | DRG 377 ==
LOC: 3ANU 16:21 → EMEROOARM 16:21 → 3ANU 20:40 → SUATTDRO 09-25 14:16
PROVIDERS: ADMIT Internal Medicine; ATTEND Internal Medicine
PROC: ENDOEBX (2018-09-27 13:30)

== ENCOUNTER 2018-12-23 17:20 | Inpatient (IN) ==
[2018-12-23] MEDS ORDERED: Vancomycin 1,000 MG VIAL IVPB ONE (18:54)
[2018-12-23] MEDS ORDERED: levoFLOXacin 750 MG/150 ML 750 MG/150 ML BAG IVPB ONE (18:54)
[2018-12-23] MEDS ORDERED: 0.9 % Sodium Chloride 1,000 ML IVC ONE (18:54)
[2018-12-23] MEDS ORDERED: cefTRIAXone 1,000 MG in 0.9 % Sodium Chloride Mini Bag 100 ML IVPB ONE (18:57)
[2018-12-23 19:20] LABS: Basophils % 0.4 %; Eosinophils # 0.1 K/mcL (0.0-0.6); Eosinophils % 1.8 %; Hematocrit 32.6 % (35.3-44.9); Hemoglobin 10.7 g/dL (11.5-15.4); Immature Granulocytes % 0.9 % (0-4); Lymphocytes # 1.2 K/mcL (0.6-4.6); Lymphocytes % 21.2 %; Mean Corpuscular HGB Conc 32.8 g/dL (31.6-35.5); Mean Corpuscular Hemoglobin 33.6 pg (28.0-33.3); Mean Corpuscular Volume 102.5 fL (83.0-100.0); Monocytes # 0.6 K/mcL (0.0-1.3); Monocytes % 11.4 %; Neutrophils # 3.6 K/mcL (1.6-8.9); Nucleated Red Blood Cells 0.5 /100 WBC (0); Platelet Count 125 K/mcL (140-400); Red Blood Count 3.18 M/mcL (3.82-4.97); Red Cell Distribution Width 16.7 % (11.5-14.5); Segmented Neutrophils % 64.3 %; White Blood Count 5.6 K/mcL (4.3-11.1)
[2018-12-23 19:50] LABS: Albumin 4.1 g/dL (3.5-5.7); Albumin/Globulin Ratio 1.2 (1.1-2.2); Bilirubin,Direct 0.1 mg/dL (0.0-0.2); Bilirubin,Indirect 0.4 mg/dL (0.0-1.2); Bilirubin,Total 0.5 mg/dL (0.3-1.0); Calcium 9.1 mg/dL (8.6-10.3); Globulin 3.3 g/dL (2.4-3.5); Potassium 4.9 mEq/L (3.5-5.1); Total Protein 7.4 g/dL (6.4-8.9)
[2018-12-23] MEDS ORDERED: Isovue-370 500 ML BOTTLE IVP ONE (20:06)
[2018-12-23 20:08] LABS: Troponin I 0.07 ng/mL (< 0.04)
[2018-12-23] MEDS ORDERED: *HR* Metoprolol 5 MG/5 ML VIAL IVP ONE (20:09)
--- NOTE | 2018-12-24 00:04 | Emergency Department Note ---
Disposition Clinical Impression: Fever of unknown origin Disposition: Admitted As Inpatient Condition: Fair Referrals: Demetra Ellison CNP [Primary Care Provider] - Forms: ED Satisfaction Letter Time of Disposition: 00:04 General Adult HPI - General Chief complaint: ED Fever Stated complaint: Fever + Blood Culture Time Seen by Provider: 12/23/18 17:53 Source: patient, family Limitations: no limitations - History of Present Illness HPI Narrative: HPI Chief Complaint +blood cultures Patient Stated Complaint Patient is a 53-year-old white female who is a dialysis patient started having fevers feeling well on Wednesday dialysis had labs drawn for PCP including blood culture patient called and sent in here today after finishing dialysis for positive blood culture for further workup and sores patient denies any cough or productive sputum and denies any chest pain denies bright red blood per rectum denies any constipation or diarrhea and does not make urine at baseline denies any abdominal pain patient has known A. fib for which she is not on blood thinners due to history of GI bleed patient denies any chest pain or chest pressure currently work during the entire ER stay patient does not take aspirin either secondary to which he tells me is gently even on the aspirin patient smiling happy interactive alert and oriented 3 is noted to be in A. fib with RVR and on exam Priya is an consistent with a regular rate and rhythm tachycardia patient started on IV antibiotics here denies any other symptoms SYMPTOMS reviewed and are negative Allergy List : Reviewed-and agree with nurses notes Home Medication List : Reviewed-and agree with nurses notes Medical and Surgical History Active Problem List: Reviewed-and agree with nurses notes Family History Reviewed- see -nurses notes Vital Signs and Body Measurements Reviewed- see -nurses notes ROS At Least 10 Organ Systems Reviewed and Negative Except as Indicated in HPI Physical Examination: All findings normal unless otherwise noted Constitutional Alert & orientated x 3, No Acute Distress Well Nourished Head and Face :Normocephalic and Atraumatic Eye Extraocular Movement Intact Pupils Equally Round Reactive to light Ear Nose Throat Mucous Membranes Moist No Injury or Deformity Oropharynx Clear Cardiovascular Capillary Refill Less than 2 Seconds No Peripheral Edema Normal S1, S2 Pulses except positive tachycardia with a regular rate and rhythm Respiratory Clear to Auscultation Bilaterally Normal Rate and Effort no Respiratory Distress or Stridor Gastrointestinal Abdomen Soft Bowel Sounds Present Not Tender Distended Generalized Tenderness. No Guarding Rebound Rigid Genitourinary No Lesion Normal External Genitalia Musculoskeletal Distal Pulses Normal No Injury or Deformity No Calf Tendernes, no Paraspinous Tenderness or spinal ttp Cervical Lumbar Thoracic Neurologic 5/5 Strength throughout No Focal Deficits Sensation Intact or Slurred Speech Skin Dry No Lesion No Rash Normal Color Warm no Cyanosis Diaphoretic Lymph No Lymphadenopathy or Lymphadenopathy Lymphedema Psychiatric Appropriate Affect Cooperative not Depressed Manic or having Suicidal Thoughts Laboratory Results-reviewed see results Data Reviewed Decision-making Patient seen and evaluated labs and imaging or reviewed imaging and reviewed by myself and radiologist negative for any PE or pneumonia or any acute abdominal findings patient improved with treatment labs negative for any acute findings though secondary to symptoms patient be admitted for further evaluation and management care patient denies any chest pain or fevers or other repeat exam does state improvement, and aspirin history of GI bleed with recurrence patient to be admitted patient's A. fib RVR resolved Differential Diagnosis Considered Final Diagnostic Impression #1 positive blood cultures were to A. fib RVR Disposition Admit Observation Supervisory Note Billing Evaluation and Management Total Critical Care Time 38 minutes Pain Scale: 0 - Related Data Home Medications Medication Instructions Recorded Confirmed Zolpidem [Ambien] 10 mg PO HS PRN 03/20/16 12/23/18 Esomeprazole Magnesium [Nexium] 40 mg PO BID 05/20/18 12/23/18 Fluticasone Propionate Nasal 1 spray NS DAILY PRN 05/20/18 12/23/18 [Flonase] Sertraline [Zoloft] 100 mg PO DAILY 05/20/18 12/23/18 Cetirizine HCl [All Day Allergy] 10 mg PO HS PRN 06/10/18 12/23/18 Albuterol Neb [Proventil Neb] 2.5 mg IH Q8H PRN 09/25/18 12/23/18 Albuterol Sulfate [Ventolin Hfa] 2 puff IH Q4H PRN 09/25/18 12/23/18 Budesonide/Formoterol 160/4.5 2 puff IH BIDR 09/25/18 12/23/18 [Symbicort 160/4.5] Magnesium Oxide 400 mg PO MOWE 09/25/18 12/23/18 Metoprolol [Lopressor] 25 mg PO BID 09/25/18 12/23/18 Cholecalciferol (Vitamin D3) 10,000 unit PO MO 10/13/18 12/23/18 [Vitamin D3] LORazepam [Ativan] 0.5 mg PO BID PRN 10/13/18 12/23/18 cloNIDine HCl [CloNIDine HCl] 0.1 mg PO ONCE PRN MDD 0.2 mg 12/23/18 12/23/18 Previous Rx's Medication Instructions Recorded Montelukast [Singulair] 10 mg PO QPM tablet 09/29/18 Renal Vitamin [Renal Caps Softgel] 1 cap PO 3XW capsule 09/29/18 Allergies Allergy/AdvReac Type Severity Reaction Status Date / Time cephalexin [From Keflex] Allergy Hives, ITCH Verified 10/13/18 14:23 Past Medical History - Past Medical History Medical history: Reports: atrial fibrillation, coronary artery disease, dialysis, GI bleed, hyperlipidemia, hypertension, peripheral artery disease, renal disease, SVT, thyroid disease, other Surgical history: Reports: cholecystectomy, hip replacement, orthopedic, other, thyroidectomy, transplant Psychiatric history: Reports: anxiety, depression, panic disorder MANAGER LEARNING history: Reports: no MANAGER LEARNING history - Social History Smoking Status: Former smoker Smokeless Tobacco Status: No Alcohol use: Reports: none Drug use: Reports: none Physical Exam - General Limitations: no limitations General appearance: alert, in no apparent distress Course Vital Signs Temperature 99 F 12/23/18 17:34 Pulse Rate 152 12/23/18 17:34 Respiratory Rate 20 12/23/18 17:34 Blood Pressure 90/69 12/23/18 17:34 O2 Sat by Pulse Oximetry 97 12/23/18 17:34 Temperature 98.1 F 12/23/18 23:56 Pulse Rate 102 12/24/18 00:49 Respiratory Rate 14 12/24/18 00:49 Blood Pressure 95/69 12/24/18 00:49 O2 Sat by Pulse Oximetry 98 12/24/18 00:49 Oxygen Delivery Oxygen Delivery Room Air Medical Decision Making - Lab Data Result diagrams: 12/23/18 18:52 12/23/18 18:52 Lab Results 12/23/18 12/23/18 12/23/18 Range/Units 18:52 18:52 18:52 WBC 5.6 (4.3-11.1) K/mcL RBC 3.18 L (3.82-4.97) M/mcL Hgb 10.7 L (11.5-15.4) g/dL Hct 32.6 L (35.3-44.9) % MCV 102.5 H (83.0-100.0) fL MCH 33.6 H (28.0-33.3) pg MCHC 32.8 (31.6-35.5) g/dL RDW 16.7 H (11.5-14.5) % Plt Count 125 L (140-400) K/mcL MPV 12.0 (9.4-12.4) fL Immature Gran % 0.9 (0-4) % Seg Neutrophils % 64.3 % Lymphocytes % 21.2 % Monocytes % 11.4 % Eosinophils % 1.8 % Basophils % 0.4 % Neutrophils # 3.6 (1.6-8.9) K/mcL Lymphocytes # 1.2 (0.6-4.6) K/mcL Monocytes # 0.6 (0.0-1.3) K/mcL Eosinophils # 0.1 (0.0-0.6) K/mcL Basophils # 0.0 (0.0-0.2) K/mcL Nucleated RBCs/100 WBC 0.5 H (0) /100 WBC Sodium 136 (136-145) mEq/L Potassium 4.9 (3.5-5.1) mEq/L Chloride 87 L (98-107) mEq/L Carbon Dioxide 35 H (23-29) mEq/L BUN 26 H (6-20) mg/dL Creatinine 5.25 H (0.60-1.20) mg/dL Est GFR ( Amer) 10 L (> 60) Est GFR (Non-Af Amer) 9 L (> 60) BUN/Creatinine Ratio 5 L (6-26) Glucose 97 (70-105) mg/dL Calculated Osmolality 287 (280-300) Lactic Acid 2.0 (0.5-2.2) mmol/L Calcium 9.1 (8.6-10.3) mg/dL Total Bilirubin 0.5 (0.3-1.0) mg/dL Direct Bilirubin 0.1 (0.0-0.2) mg/dL Indirect Bilirubin 0.4 (0.0-1.2) mg/dL AST 56 H (13-39) Units/L ALT 43 (7-52) Units/L Alkaline Phosphatase 114 H (34-104) Units/L Troponin I 0.07 H* (< 0.04) ng/mL Serum Total Protein 7.4 (6.4-8.9) g/dL Albumin 4.1 (3.5-5.7) g/dL Globulin 3.3 (2.4-3.5) g/dL Albumin/Globulin Ratio 1.2 (1.1-2.2)
[2018-12-24] MEDS ORDERED: *HR* Metoprolol 5 MG/5 ML VIAL IVP ONE (00:33)
[2018-12-24] MEDS ORDERED: D5% in Water 1,000 ML IVC PRN (01:22)
[2018-12-24] MEDS ORDERED: Ondansetron ODT 4 MG TAB.RAPDIS SL PRN (01:22)
[2018-12-24] MEDS ORDERED: Dextrose Gel 15 GM/37.5 ML TUBE PO PRN ×2 (01:22)
[2018-12-24] MEDS ORDERED: Naloxone 0.4 MG/ML INJ IVP PRN (01:22)
[2018-12-24] MEDS ORDERED: *HR* Dextrose 50 % in Water (Syg) 50 ML SYRINGE IVP PRN (01:22)
[2018-12-24 02:23] LABS: Basophils % 0.2 %; Eosinophils # 0.1 K/mcL (0.0-0.6); Eosinophils % 1.8 %; Hematocrit 30.6 % (35.3-44.9); Hemoglobin 9.8 g/dL (11.5-15.4); Immature Granulocytes % 0.4 % (0-4); Lymphocytes # 1.2 K/mcL (0.6-4.6); Lymphocytes % 25.5 %; Mean Corpuscular Hemoglobin 33.2 pg (28.0-33.3); Mean Corpuscular Volume 103.7 fL (83.0-100.0); Mean Platelet Volume 11.8 fL (9.4-12.4); Monocytes # 0.5 K/mcL (0.0-1.3); Monocytes % 10.2 %; Neutrophils # 2.8 K/mcL (1.6-8.9); Platelet Count 118 K/mcL (140-400); Red Blood Count 2.95 M/mcL (3.82-4.97); Red Cell Distribution Width 16.9 % (11.5-14.5); Segmented Neutrophils % 61.9 %; White Blood Count 4.5 K/mcL (4.3-11.1)
[2018-12-24 02:30] LABS: INR 1.2; Prothrombin Time 13.4 Seconds (9.4-12.1)
[2018-12-24 02:43] LABS: Albumin 3.9 g/dL (3.5-5.7); Albumin/Globulin Ratio 1.3 (1.1-2.2); Bilirubin,Total 0.4 mg/dL (0.3-1.0); Calcium 8.3 mg/dL (8.6-10.3); Chol/HDL Ratio 4.9 (0-4.9); Magnesium 1.8 mg/dL (1.6-2.6); Potassium 4.5 mEq/L (3.5-5.1); Total Protein 6.9 g/dL (6.4-8.9)
--- NOTE | 2018-12-24 03:38 | Internal Med History&Physical ---
Date of Encounter: 12/24/18 Time of Encounter: 03:33 Internal Medicine - H&P: HPI Chief complaint: fever chills Admitted From: Home History of present illness: Ms. Taylor is a 53 year old female with past medical history of end-stage renal disease, arterial fibrillation anticoagulated due to multiple episodes of GI bleeding presented to the ED for fever and chills. [id number] encounter occurred at 3:30 AM. Patient stated that his fever has started to occur on Wednesday and underwent dialysis on Wednesday and was noted to be hypotensive, ta chycardic and febrile. Patient that day had blood cultures drawn and was sent home. The fever continues to be constant and mildly alleviated with Tylenol been taking every 4 hours with diaphoresis and chills. Patient today was called with positive blood culture that showed gram-positive cocci most came to the ED. Patient also has been complaining of worsening low constant back pain, sharp 10/10 nonradiating worsened with extension and standing. Alleviated to 4/10 when sitting down no association of perennial numbness but does endorse bowel movement urgency, not incontinance. Patient also states that her dialysis catheter has been intermittently tender for a few seconds worsened with pal pation,not clear alleviation factor but no drainage swelling or erythema noted. Personally reviewed patient's past medical, surgical, family and social history. Mother history of myelitis, father unknown, does not smoke drink or do any drugs. Lives at home with spouse independent. Patient has had a kidney transplant that lasted for almost a month with rejection and has been on dialysis for almost 20 years. CODE STATUS with reviewed and the patient presented with full code Past Med Surg Social Fam HX - Past Medical History Medical history: atrial fibrillation, coronary artery disease, dialysis, GI bleed, hyperlipidemia, hypertension, peripheral artery disease, renal disease, SVT, thyroid disease, other Additional medical history: HD fistula TYLER, dialysis MWF Psychiatric history: anxiety, depression, panic disorder - Past Surgical History Surgical History: cholecystectomy, hip replacement, orthopedic, other, thyroidectomy, transplant Additional surgical history: R kidney transplant, dialysis fistula removal and graft to LUE, cardiac ablation - Social History Smoking Status: Former smoker Smokeless Tobacco Status: No Alcohol use: none Drug use: none - Family History Mother Living Status: Hx Family Endocrine Disorder: Yes (Type 2 DM) Father Living Status: Hx Family Cardiac Disorders: Yes (HTN) Hx Family Respiratory Disorders: Yes (COPD) Hx Family Cancer: Yes (Colon ca) Hx Family GI Disorders: Yes (colon cancer) Hx Family Endocrine Disorder: Yes (DM Type 2) Internal Medicine - H&P: Meds Zolpidem [Ambien] 10 mg PO HS PRN 03/20/16 [History] Esomeprazole Magnesium [Nexium] 40 mg PO BID 05/20/18 [History] Fluticasone Propionate Nasal [Flonase] 1 spray NS DAILY PRN 05/20/18 [History] Sertraline [Zoloft] 100 mg PO DAILY 05/20/18 [History] Cetirizine HCl [All Day Allergy] 10 mg PO HS PRN 06/10/18 [History] Albuterol Neb [Proventil Neb] 2.5 mg IH Q8H PRN 09/25/18 [History] Albuterol Sulfate [Ventolin Hfa] 2 puff IH Q4H PRN 09/25/18 [History] Budesonide/Formoterol 160/4.5 [Symbicort 160/4.5] 2 puff IH BIDR 09/25/18 [History] Magnesium Oxide 400 mg PO MOWE 09/25/18 [History] Metoprolol [Lopressor] 25 mg PO BID 09/25/18 [History] Montelukast [Singulair] 10 mg PO QPM tablet 09/29/18 [Rx] Renal Vitamin [Renal Caps Softgel] 1 cap PO 3XW capsule 09/29/18 [Rx] Cholecalciferol (Vitamin D3) [Vitamin D3] 10,000 unit PO MO 10/13/18 [History] LORazepam [Ativan] 0.5 mg PO BID PRN 10/13/18 [History] cloNIDine HCl [CloNIDine HCl] 0.1 mg PO ONCE PRN MDD 0.2 mg 12/23/18 [History] Allergy/AdvReac Type Severity Reaction Status Date / Time cephalexin [From Keflex] Allergy Hives, ITCH Verified 10/13/18 14:23 All Systems PM: A 10-system review of systems was performed and is negative for pertinent findings except as documented above in the HPI. Review of systems: General: No unintentional weightloss, +fever, + night sweats. Head: No headahce, No injury. Ears: No discharge, No earache Eyes: No drainage, No eye pain Mouth and Throat: No new ulcers, No pain Nose and Sinus: No new congestion, No pain, Respiratory: No cough, No sputum production, No dyspnea Cardiovascular: No chest pain, No palpitations. Gastrointestinal: + nausea, No vomiting. No abdominal pain Genital Tract: No discharge, No pain Urinary Tract: No dysuria, No discharge. MSK: + new/worsening back joint pain, no new/worsening muscle ache. Endocrine: No cold intolerance, No polyuria Psychological: No suicidal, No homocidal ideation. - Constitutional Vitals: Temp Pulse Resp BP Pulse Ox 98.1 F 137 15 106/65 96 12/24/18 02:40 12/24/18 02:40 12/24/18 02:40 12/24/18 02:40 12/24/18 02:40 Exam: General Appearance: Appearing as age, well-nourished in mild acute distress. Head: Atraumatic normocephalic Skin: Normal texture, normal turgor, warm, dry. Left proximal arm graft that is nonedematous, nor erythematous with no purulence noted however tender to deep palpation Eyes: Conjunctivae not pale with no erythema, drainage, or ulcers. Anicteric. Neck: No Lymphadenopathy in the anterior/posterior cervical chain. No thyromega ly, masses or ulcers. Trachea midline. Heart: RRR, no murmurs. Capillary refill 3 seconds Lungs: No accessory muscle usage, lungs clear to auscultation bilaterally, no wheezes or crackles. Extremities: No pitting edema, clubbing, cyanosis, or ulcers. Abdomen: Non-distended, normoactive bowel sounds. non-tender to palpation, no hepatomegally. No guarding. Neuro: AOx3 with no new sensory loss or focal deficits. MSK: Strength 5/5 Upper extremity equal bilaterally. Strength 5/5 Lower extremity equal bilaterally. Low back pain exquisitely tender in the lumbar spine worsened with extension Internal Med - H&P Results - Labs CBC & Chem 7: 12/24/18 01:58 12/24/18 01:58 Labs: Short CBC 12/23/18 12/24/18 Range/Units 18:52 01:58 WBC 5.6 4.5 (4.3-11.1) K/mcL Hgb 10.7 L 9.8 L (11.5-15.4) g/dL Hct 32.6 L 30.6 L (35.3-44.9) % Plt Count 125 L 118 L (140-400) K/mcL Neutrophils # 3.6 2.8 (1.6-8.9) K/mcL BMP 12/23/18 12/24/18 18:52 01:58 Sodium 136 135 L Potassium 4.9 4.5 Chloride 87 L 90 L Carbon Dioxide 35 H 31 H BUN 26 H 30 H Creatinine 5.25 H 5.73 H Glucose 97 88 Calcium 9.1 8.3 L Cardiac Enzymes 12/23/18 12/24/18 Range/Units 18:52 01:58 Troponin I 0.07 H* 0.06 H* (< 0.04) ng/mL Liver Function 12/23/18 12/24/18 Range/Units 18:52 01:58 Total Bilirubin 0.5 0.4 (0.3-1.0) mg/dL Direct Bilirubin 0.1 (0.0-0.2) mg/dL AST 56 H 37 (13-39) Units/L ALT 43 35 (7-52) Units/L Alkaline Phosphatase 114 H 93 (34-104) Units/L Albumin 4.1 3.9 (3.5-5.7) g/dL - Impressions ITS Impressions Chest X-Ray 12/23/18 18:55 IMPRESSION: No acute findings D/ / Jillian Fields MD / Jillian Fields MD Interpreting Provider: Jillian Fields MD Abdomen/Pelvis CT 12/23/18 20:06 IMPRESSION: 1. No acute pulmonary emboli. 2. Pulmonary findings suggesting small airways disease and acute bronchiolitis. No lobar pneumonia. 3. New 2 mm right lower lobe solid pulmonary nodules, see recommendations. 4. 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 There is no significant mass effect. 5. Coronary and aortic atherosclerosis with no aortic aneurysm or dissection. 6. No acute bowel abnormality to account for GI hemorrhage. Mild sigmoid diverticulosis. 7. Stable right hemiabdomen eventration. Interval resolution left abdominal wall hematoma identified on the 06/23/2018 exam. 8. Stable severe bilateral renal atrophy. No renal transplant is identified. 9. Stable nonspecific gastric fold thickening which could relate to gastritis. This could be further evaluated with endoscopy. RECOMMENDATIONS: Fleischner Society guidelines for follow-up and management of incidentally detected pulmonary nodules: Multiple Solid Nodules: Nodule size less than 6 mm In a low-risk patient, no routine follow-up. In a high-risk patient, optional CT at 12 months. - Low risk patients include individuals with minimal or absent history of smoking and other known risk factors. - High risk patients include individuals with a history or smoking or known risk factors. Radiology 2017 http://pubs.rsna.org/doi/full/10.1148/radiol.[email or web address] D/ / 12/23/2018 22:27:39 Wesley Dorsey MD / brittany Interpreting Provider: Wesley Dorsey MD Chest CTA 12/23/18 20:06 IMPRESSION: 1. No acute pulmonary emboli. 2. Pulmonary findings suggesting small airways disease and acute bronchiolitis. No lobar pneumonia. 3. New 2 mm right lower lobe solid pulmonary nodules, see recommendations. 4. 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 There is no significant mass effect. 5. Coronary and aortic atherosclerosis with no aortic aneurysm or dissection. 6. No acute bowel abnormality to account for GI hemorrhage. Mild sigmoid diverticulosis. 7. Stable right hemiabdomen eventration. Interval resolution left abdominal wall hematoma identified on the 06/23/2018 exam. 8. Stable severe bilateral renal atrophy. No renal transplant is identified. 9. Stable nonspecific gastric fold thickening which could relate to gastritis. This could be further evaluated with endoscopy. RECOMMENDATIONS: Fleischner Society guidelines for follow-up and management of incidentally detected pulmonary nodules: Multiple Solid Nodules: Nodule size less than 6 mm In a low-risk patient, no routine follow-up. In a high-risk patient, optional CT at 12 months. - Low risk patients include individuals with minimal or absent history of smoking and other known risk factors. - High risk patients include individuals with a history or smoking or known risk factors. Radiology 2017 http://pubs.rsna.org/doi/full/10.1148/radiol.[email or web address] D/ / 12/23/2018 22:27:39 Weslye Dorsey MD / brittany Interpreting Provider: Wesley Dorsey MD - Summary of Assessment and Plan Summary of Assessment and Plan: 1.Gram-positive bacteremia: Etiology likely graft source. Repeat blood cultures pending. Echocardiogram, lumbar MRI pending. Continue vancomycin Infectious disease consultation 2.intermittent Atrial fibrillation: Not anticoagulated due to severe GI bleeds in the past requiring intervention q3-4months. Rate controlled with beta leno. Continue to monitor. 3.Elevated troponin: likely demand ischemia No symptoms of chest pain. consider starting statin. Cardiology consultation. 4. Macrocytic anemia: B12, folate, reticulocyte count, iron panel ordered. goal Feritin >500, transferritin >45% If at goal would benefit from Epogen 5. End-stage renal disease: Nephrology consultation. 6.Hypocalcemia: Nephrology consultation. DVT prophylaxis: Heparin Disposition: Likely will stay more than 2 days - Time Spent With Patient Total time spent is greater than 38 minutes 50% in coordination of care (as documented) at patient's floor/unit and/or counseling patient: Greater than 35 minutes
[2018-12-24] MEDS ORDERED: Vancomycin (wt based) 1,000 MG VIAL IVPB SCH (05:00)
[2018-12-24] MEDS ORDERED: Insulin LISPRO 300 UNITS/3 ML VIAL SQ SCH (07:30)
[2018-12-24] MEDS: Budesonide/Formoterol 160/4.5 1 PUFF INH IH SCH ×2 (08:06→20:23)
--- NOTE | 2018-12-24 11:29 | Nephrology Consult Note ---
Date of Encounter: 12/24/18 Time of Encounter: 10:00 Assessment and Plan (1) ESRD on dialysis Current Visit: No Status: Chronic (2) AV fistula infection Current Visit: Yes Status: Acute This ESRD patient on dialysis every Wednesday/Wednesday/Wednesday, reported that she was told she has positive blood cultures for gram-positive cocci, and that her AV fistula may be the source, so she was sent to the hospital. She is followed by Dr. Randall at [facility] in [place], [place], and has been seen at [facility] numerous times in the past for GI bleeds. She reported having occasional fevers and bodyaches as well as flulike symptoms. She affirmed having nausea as well. She last dialyzed yesterday, so I do not recommend further extra dialysis this weekend, but in the meantime I recommend consulting Vascular surgery to assess if her AV fistula is infected, and if so she may need further workup or to have an alterative dialysis access placed such as Permacath or temporary HD cather with a Line Holiday. She should have blood cultures checked and potentially even a AMANDA, if indicated, to assess for endocarditis. Infection Disease may need to be consulted. Thank you for consulting the [facility] on this very complex patient who required a high degree of E/M and MDM. I will follow with you. Qualifiers: Encounter type: initial encounter Qualified Code(s): T82.7XXA - Infection and inflammatory reaction due to other cardiac and vascular devices, implants and grafts, initial encounter (3) Hypotension Current Visit: Yes Status: Acute Qualifiers: Hypotension type: unspecified hypotension type Qualified Code(s): I95.9 - Hypotension, unspecified (4) Anemia Current Visit: No Status: Chronic Qualifiers: Anemia type: due to chronic kidney disease Chronic kidney disease stage: on chronic dialysis Qualified Code(s): N18.6 - End stage renal disease; D63.1 - Anemia in chronic kidney disease; Z99.2 - Dependence on renal dialysis History of Present Illness - Reason for Consult Consult date: 12/24/18 end stage renal disease Requesting physician: Rowdy Zayas - Chief Complaint ESRD with potential dialysis access infection - History of Present Illness The patient is a very pleasant 53-year-old female with a past medical history of end-stage renal disease on hemodialysis every Wednesday/Wednesday/Wednesday, anemia, and etc. who presented with fevers and concern for infected fistula. She is followed by a vocal performer Dr. Randall in [place], [place], at the [facility] unit. She affirmed having periodic fevers, and occasional oozing from her left arm fistula. She did not affirm having chest pain, nausea, vomiting, or diarrhea. She reported completing dialysis on Wednesday. She said she had blood cultures drawn at the dialysis unit and they were both positive, she reported. Past Med Surg Social Fam HX - Past Medical History Medical history: atrial fibrillation, coronary artery disease, dialysis, GI bleed, hyperlipidemia, hypertension, peripheral artery disease, renal disease, SVT, thyroid disease, other Additional medical history: HD fistula TYLER, dialysis MWF Psychiatric history: anxiety, depression, panic disorder - Past Surgical History Surgical History: cholecystectomy, hip replacement, orthopedic, other, thyroidectomy, transplant Additional surgical history: R kidney transplant, dialysis fistula removal and graft to LUE, cardiac ablation - Social History Smoking Status: Former smoker Smokeless Tobacco Status: No Alcohol use: none Drug use: none - Family History Mother Living Status: Hx Family Endocrine Disorder: Yes (Type 2 DM) Father Living Status: Hx Family Cardiac Disorders: Yes (HTN) Hx Family Respiratory Disorders: Yes (COPD) Hx Family Cancer: Yes (Colon ca) Hx Family GI Disorders: Yes (colon cancer) Hx Family Endocrine Disorder: Yes (DM Type 2) Medications and Allergies Zolpidem [Ambien] 10 mg PO HS PRN 03/20/16 [History] Esomeprazole Magnesium [Nexium] 40 mg PO BID 05/20/18 [History] Fluticasone Propionate Nasal [Flonase] 1 spray NS DAILY PRN 05/20/18 [History] Sertraline [Zoloft] 100 mg PO DAILY 05/20/18 [History] Cetirizine HCl [All Day Allergy] 10 mg PO DAILY 06/10/18 [History] Albuterol Neb [Proventil Neb] 2.5 mg IH Q8H PRN 09/25/18 [History] Albuterol Sulfate [Ventolin Hfa] 2 puff IH Q4H PRN 09/25/18 [History] Budesonide/Formoterol 160/4.5 [Symbicort 160/4.5] 2 puff IH BIDR 09/25/18 [History] Magnesium Oxide 400 mg PO MOTUWE 09/25/18 [History] Metoprolol [Lopressor] 25 mg PO BID 09/25/18 [History] Montelukast [Singulair] 10 mg PO QPM tablet 09/29/18 [Rx] Renal Vitamin [Renal Caps Softgel] 1 cap PO 3XW capsule 09/29/18 [Rx] Cholecalciferol (Vitamin D3) [Vitamin D3] 10,000 unit PO MO 10/13/18 [History] LORazepam [Ativan] 0.5 mg PO BID PRN 10/13/18 [History] cloNIDine HCl [CloNIDine HCl] 0.1 mg PO ONCE PRN MDD 0.2 mg 12/23/18 [History] Calcium Acetate [Phos-LO] 2,668 mg PO TIDWM 12/24/18 [History] Ondansetron HCl [Zofran] 4 mg PO Q8H PRN 12/24/18 [History] Allergy/AdvReac Type Severity Reaction Status Date / Time cephalexin [From Keflex] Allergy Hives, ITCH Verified 12/24/18 13:17 Review of Systems All Systems: reviewed and no additional remarkable complaints except as stated Exam - Vital Signs Vital signs: Initial Vital Signs Temp Pulse Resp BP Pulse Ox 99 F 152 20 90/69 97 12/23/18 17:34 12/23/18 17:34 12/23/18 17:34 12/23/18 17:34 12/23/18 17:34 Vital Signs - Last 8 Hours Temp Pulse Resp BP Pulse Ox 12/24/18 08:34 98.2 F 82 15 94/60 97 12/24/18 08:06 16 98 12/24/18 05:12 98.2 F 76 14 97/59 100 Intake and Output 12/23/18 12/24/18 12/24/18 23:59 07:59 15:59 Intake Total 1500 / 1500 Balance 1500 / 1500 Intake: IV Fluids 1500 / 1500 0.9 % Sodium Chloride 1,000 ML 1000 / 1000 @ 999 mls/hr IVC .Q1H1M ONE Rx# :[id number] Vancocin 1,500 MG In 0.9 % 250 / 250 Sodium Chloride 250 ML @ 166.67 mls/hr IVPB ONCE ONE Rx#: [id number] Rocephin 1,000 MG In 0.9 % 100 / 100 Sodium Chloride (Mini-Bag +) 100 ML @ 200 mls/hr IVPB ONCE ONE Rx#:[id number] Levaquin Premix 750mg/150 mL 150 / 150 750 mg In 150 ml @ 100 mls/hr IVPB ONCE ONE Rx#:[id number] Other: Weight 90.718 kg Blood Glucose* 109 - General Appearance General appearance: well-developed, well-nourished, appears started age, fatigue EENT: ATNC, PERRL, mucous membranes moist Neck: supple Respiratory: clear Cardiology: holosystolic murmur (very soft), no edema, regular rate, regular rhythm, normal S1, normal S2 - Dialysis Access Dialysis Vascular Access: Arteriovenous Fistula (left upper extremity AVF with warmth noted. +Thrill/+Bruit) thrill: Yes bruit: Yes Gastrointestinal: normoactive bowel sounds, no guarding Integumentary: warm and dry Neurologic: no focal deficit, no asterixis, alert and oriented x3 Musculoskeletal: no deformities, no clubbing Psychiatric: mood/affect appropriate, cooperative Results - Lab Results 12/25/18 05:40 12/25/18 05:40 Most recent lab results 12/24/18 01:58 Calcium 8.3 L Phosphorus 4.0 Magnesium 1.8 Consult Discharge Plan - Plan Referrals: Dmeetra Ellison, ACCOUNTS MANAGER [Primary Care Provider] -
--- NOTE | 2018-12-24 11:58 | Cardiology Consult Note ---
Date of Encounter: 12/24/18 Time of Encounter: 11:56 Assessment and Plan (1) Chest pain Current Visit: No Status: Acute Atypical type chest pain similar to previous events and unchanged. EKG also compared to previous EKG borderline nonspecific ST changes. Recent LHC a year ago was unremarkable with no PCI performed Qualifiers: Chest pain type: other chest pain Qualified Code(s): R07.89 - Other chest pain; R07.8 - Other chest pain (2) Elevated troponin Current Visit: No Status: Chronic Adynamic likely nonischemic, obtain records from recent LHC (3) Atrial fibrillation Current Visit: No Status: Chronic Paroxysmal atrial fibrillation not candidate for anticoagulant or antiplatelet therapy due to significant GI bleed with lowest hemoglobin 5.7 Qualifiers: Atrial fibrillation type: paroxysmal Qualified Code(s): I48.0 - Paroxysmal atrial fibrillation Discussion w patient/family: The assessment and plan as outlined above was discussed with the patient and/or family members who expressed understanding and agreement. All questions were answered. Thank you for involving us in the care of your patient. Please call with any questions. History of Present Illness Consult date: 12/24/18 Consult reason: Chest Pain Chief complaint: Chest Pain History of present illness: Ms. Taylor is a 53 year old female with history of end-stage renal disease on hemodialysis, atrial fibrillation not on anticoagulation due to history of GI bleed, not on aspirin due to history of GI bleed on aspirin alone, mild aortic stenosis and mild to moderate mitral regurg on recent echocardiogram. She presents for atypical type chest pain and palpitations. Currently she is well rate controlled resting comfortably asymptomatic from a cardiac standpoint. Her troponins are adynamic similar to her previous admission. Patient had LHC at outside hospital less than a year ago which was unremarkable with nonobstructive coronary artery disease only. Patient states on and off episodes of atypical type chest pain not very concerning however she did primarily presents due to fever and chills currently being worked up by primary team found to have bacteremia. Echocardiogram this admission is pending. Past Med Surg Social Fam HX - Past Medical History Medical history: atrial fibrillation, coronary artery disease, dialysis, GI bleed, hyperlipidemia, hypertension, peripheral artery disease, renal disease, SVT, thyroid disease, other Additional medical history: HD fistula TYLER, dialysis MWF Psychiatric history: anxiety, depression, panic disorder - Past Surgical History Surgical History: cholecystectomy, hip replacement, orthopedic, other, thyroidectomy, transplant Additional surgical history: R kidney transplant, dialysis fistula removal and graft to LUE, cardiac ablation - Social History Smoking Status: Former smoker Smokeless Tobacco Status: No Alcohol use: none Drug use: none - Family History Mother Living Status: Hx Family Endocrine Disorder: Yes (Type 2 DM) Father Living Status: Hx Family Cardiac Disorders: Yes (HTN) Hx Family Respiratory Disorders: Yes (COPD) Hx Family Cancer: Yes (Colon ca) Hx Family GI Disorders: Yes (colon cancer) Hx Family Endocrine Disorder: Yes (DM Type 2) Medications and Allergies Zolpidem [Ambien] 10 mg PO HS PRN 03/20/16 [History] Esomeprazole Magnesium [Nexium] 40 mg PO BID 05/20/18 [History] Fluticasone Propionate Nasal [Flonase] 1 spray NS DAILY PRN 05/20/18 [History] Sertraline [Zoloft] 100 mg PO DAILY 05/20/18 [History] Cetirizine HCl [All Day Allergy] 10 mg PO HS PRN 06/10/18 [History] Albuterol Neb [Proventil Neb] 2.5 mg IH Q8H PRN 09/25/18 [History] Albuterol Sulfate [Ventolin Hfa] 2 puff IH Q4H PRN 09/25/18 [History] Budesonide/Formoterol 160/4.5 [Symbicort 160/4.5] 2 puff IH BIDR 09/25/18 [History] Magnesium Oxide 400 mg PO MOWE 09/25/18 [History] Metoprolol [Lopressor] 25 mg PO BID 09/25/18 [History] Montelukast [Singulair] 10 mg PO QPM tablet 09/29/18 [Rx] Renal Vitamin [Renal Caps Softgel] 1 cap PO 3XW capsule 09/29/18 [Rx] Cholecalciferol (Vitamin D3) [Vitamin D3] 10,000 unit PO MO 10/13/18 [History] LORazepam [Ativan] 0.5 mg PO BID PRN 10/13/18 [History] cloNIDine HCl [CloNIDine HCl] 0.1 mg PO ONCE PRN MDD 0.2 mg 12/23/18 [History] Allergy/AdvReac Type Severity Reaction Status Date / Time cephalexin [From Keflex] Allergy Hives, ITCH Verified 10/13/18 14:23 All Systems Review: The remainder of the systems were reviewed and are negative Physical Examination Vital Signs, Last 4 Hours Temp Pulse Resp BP Pulse Ox 12/24/18 08:34 98.2 F 82 15 94/60 97 12/24/18 08:06 16 98 General: Conversant, No Apparent Distress HEENT: Atraumatic, Normocephaly, Mucus Membranes Moist Neck: No JVD, Normal carotid pulses Cardiac: Reg Rate and Rhythm, Normal S1 and S2, No Murmur Lungs: Normal Breath Sounds, No Wheeze, Rales, Rhonchi Neuro: Alert and responsive, No focal deficits noted Abdomen: Soft, Non-Tender Skin: No rashes noted on visualized skin Musculoskeletal: No Chest Wall Tenderness Extremities: No Clubbing, No Cyanosis, No Edema, Normal Pulses Results 12/24/18 01:58 12/24/18 01:58 Lab Results 12/23/18 12/23/18 12/24/18 18:52 18:52 01:58 WBC 5.6 Hgb 10.7 L Hct 32.6 L Plt Count 125 L INR Sodium 136 Potassium 4.9 Chloride 87 L Carbon Dioxide 35 H BUN 26 H Creatinine 5.25 H Glucose 97 Calcium 9.1 Magnesium Total Bilirubin 0.5 AST 56 H ALT 43 Alkaline Phosphatase 114 H Troponin I 0.07 H* 0.06 H* 12/24/18 12/24/18 12/24/18 01:58 01:58 01:58 WBC 4.5 Hgb 9.8 L Hct 30.6 L Plt Count 118 L INR 1.2 Sodium 135 L Potassium 4.5 Chloride 90 L Carbon Dioxide 31 H BUN 30 H Creatinine 5.73 H Glucose 88 Calcium 8.3 L Magnesium 1.8 Total Bilirubin 0.4 AST 37 ALT 35 Alkaline Phosphatase 93 Troponin I 12/24/18 07:26 WBC Hgb Hct Plt Count INR Sodium Potassium Chloride Carbon Dioxide BUN Creatinine Glucose Calcium Magnesium Total Bilirubin AST ALT Alkaline Phosphatase Troponin I 0.06 H* Consult Discharge Plan - Plan Referrals: Demetra Ellison CNP [Primary Care Provider] -
--- NOTE | 2018-12-24 12:39 | Event Note ---
Date of Encounter: 12/24/18 Time of Encounter: 00:10 I saw and examined patient. She is comfortable in bed and denies fever, chills, nausea and vomiting. She had her spinal MRI performed. Results are multilevel degenerative changes of the lumbar spine. The spinal canal stenosis at L4 and L5. Mild spinal canal stenosis at T11-T12, L1-L2, L3-L4, mild multilevel neural foraminal narrowing. She has been seen by nephrology who recommended evaluation of AV fistula by vascular for possible placement of permacath if fistula is found to be infected. Infectious disease to see patient. Continue current management.
[2018-12-24] MEDS: Acetaminophen 325 MG TABLET PO PRN (14:05)
[2018-12-24 14:32] LABS: Hepatitis B Surface Antibody 17.04 mIU/mL
[2018-12-24 14:44] LABS: Hepatitis B Surface Antigen Nonreactive (Nonreactive)
[2018-12-24] MEDS ORDERED: Albuterol 2.5 MG/3 ML NEBULIZER IH PRN (16:58)
[2018-12-24] MEDS ORDERED: Fluticasone Propionate Nasal 50 MCG/SPRAY BOTTLE NS PRN (16:58)
[2018-12-24] MEDS ORDERED: *HR* LORazepam 0.5 MG TABLET PO PRN (16:58)
[2018-12-24] MEDS ORDERED: NON-FORMULARY MEDICATION 1 EACH EACH (Ondansetron Hcl [Zofran] 4 MG) PO PRN (16:58)
[2018-12-24] MEDS ORDERED: cloNIDine HCl 0.1 MG TABLET PO PRN (17:00)
[2018-12-24] MEDS: Calcium Acetate 667 MG CAPSULE PO SCH (17:01)
[2018-12-24 17:57] LABS: mecA Methicillin-Resist Gene Not Detected (Not Detect)
[2018-12-24 17:58] LABS: Acinetobacter baumannii by PCR Not Detected (Not Detect); Candida albicans by PCR Not Detected (Not Detect); Candida glabrata by PCR Not Detected (Not Detect); Candida krusei by PCR Not Detected (Not Detect); Candida parapsilosis by PCR Not Detected (Not Detect); Candida tropicalis by PCR Not Detected (Not Detect); Enterobacter cloacae Cmplx PCR Not Detected (Not Detect); Enterobacteriaceae by PCR Not Detected (Not Detect); Enterococcus by PCR Not Detected (Not Detect); Escherichia coli by PCR Not Detected (Not Detect); Klebsiella oxytoca by PCR Not Detected (Not Detect); Klebsiella pneumoniae by PCR Not Detected (Not Detect); Proteus by PCR Not Detected (Not Detect); Pseudomonas aeruginosa by PCR Not Detected (Not Detect); Serratia marcescens by PCR Not Detected (Not Detect); Staphylococcus aureus by PCR Not Detected (Not Detect); Staphylococcus by PCR DETECTED (Not Detect); Streptococcus agalactiae(B)PCR Not Detected (Not Detect); Streptococcus by PCR Not Detected (Not Detect); Streptococcus pneumoniae PCR Not Detected (Not Detect); Streptococcus pyogenes (A) PCR Not Detected (Not Detect)
[2018-12-25] MEDS ORDERED: Ondansetron 4 MG/2 ML VIAL IVP ONE (06:27)
[2018-12-25 06:38] LABS: Immature Reticulocyte % 22.4 % (11.0-38.0); Red Cell Distribution Width 17.1 % (11.5-14.5); Retculocyte # 0.04 M/mcL (0.05-0.10)
[2018-12-25 06:40] LABS: Hematocrit 23.8 % (35.3-44.9); Hemoglobin 7.6 g/dL (11.5-15.4); Immature Platelets 9.1 % (1.1-6.1); Mean Corpuscular HGB Conc 31.9 g/dL (31.6-35.5); Mean Corpuscular Hemoglobin 33.8 pg (28.0-33.3); Mean Corpuscular Volume 105.8 fL (83.0-100.0); Mean Platelet Volume 12.6 fL (9.4-12.4); Red Blood Count 2.25 M/mcL (3.82-4.97); White Blood Count 3.8 K/mcL (4.3-11.1)
[2018-12-25 06:46] LABS: Platelet Count 85 K/mcL (140-400)
[2018-12-25 07:01] LABS: Calcium 9.1 mg/dL (8.6-10.3); Potassium 4.9 mEq/L (3.5-5.1)
[2018-12-25 07:03] LABS: % Iron Saturation 55 % (15-50); Iron 161 mcg/dL (50-170); Transferrin 210 mg/dL (203-362)
[2018-12-25 07:22] LABS: Ferritin > 1500 ng/mL (10-120)
[2018-12-25 07:28] LABS: Folate > 22.3 ng/mL (3.0-16.0); Vitamin B12 502 pg/mL (250-1100)
[2018-12-25] MEDS: Cholecalciferol (D-3) 1,000 UNIT (25MCG) TABLET PO SCH (07:49)
[2018-12-25] MEDS: Loratadine 10 MG TABLET PO SCH (07:49)
[2018-12-25] MEDS: Calcium Acetate 667 MG CAPSULE PO SCH ×3 (07:49→17:36)
[2018-12-25] MEDS: Budesonide/Formoterol 160/4.5 1 PUFF INH IH SCH ×2 (08:11→22:10)
--- NOTE | 2018-12-25 09:34 | Cardiology Progress Note ---
Date of Encounter: 12/25/18 Time of Encounter: 08:50 Assessment and Plan (1) End stage renal disease Current Visit: No Status: Chronic Per Cardiology: ESRD on HD. (2) Anemia due to blood loss, acute Current Visit: No Status: Acute Per Cardiology: Guaiac positive stool. H&H overall downward trending. History of GI bleed. Discussed with primary with GI and hematology consult pending. (3) Elevated troponin Current Visit: No Status: Chronic Per Cardiology: Troponins flat and adynamic with peak of 0.07 in setting of end-stage renal disease and anemia. Chest pain-free. Echo showed EF 6065%, mildly S, mild MS, NSWMA. No medical records received from [place] with last catheterization about one year ago-- patient reports no stenting at that time. Suspect demand ischemia, no cardiac rehabilitation consult warranted. Discussed with the primary service, cardiology signing off, no further inpatient workup warranted, follow-up arranged. Patient verbalized understanding and agreed with plan. All questions answered. Discussed with Dr. Olivarez. (4) Atrial fibrillation Current Visit: No Status: Chronic Per Cardiology: "Paroxysmal atrial fibrillation not candidate for anticoagulant or antiplatelet therapy due to significant GI bleed with lowest hemoglobin 5.7". Now with decreased H&H and quite positive stool. Patient on beta leno. Patient aware of increased stroke risk. Currently sinus rhythm. Qualifiers: Atrial fibrillation type: paroxysmal Qualified Code(s): I48.0 - Paroxysmal atrial fibrillation Discussion w patient/family: The assessment and plan as outlined above was discussed with the patient and/or family members who expressed understanding and agreement. All questions were answered. Thank you for involving us in the care of your patient. Please call with any questions. Subjective Principal diagnosis: CP, Trop Interval history: Denies any current chest pain, shortness of breath, palpitations. Overall reports improvement. She denies any active bleeding or blood loss. Objective Vital Signs, Last 4 Hours Temp Pulse Resp BP Pulse Ox 12/25/18 08:11 16 98 12/25/18 07:33 97.7 F 87 18 123/73 98 General: Conversant, No Apparent Distress HEENT: Atraumatic, Normocephaly, Mucus Membranes Moist Neck: No JVD, Normal carotid pulses Cardiac: Reg Rate and Rhythm, Normal S1 and S2, No Murmur Lungs: Normal Breath Sounds, No Wheeze, Rales, Rhonchi Neuro: Alert and responsive, No focal deficits noted Abdomen: Soft, Non-Tender Skin: No rashes noted on visualized skin Musculoskeletal: No Chest Wall Tenderness Extremities: No Clubbing, No Cyanosis, No Edema, Normal Pulses Results 12/25/18 05:40 12/25/18 05:40 Lab Results Laboratory Tests 12/23/18 12/23/18 12/23/18 18:52 18:52 19:17 Hgb 10.7 L Hct 32.6 L Creatinine Est GFR (Non-Af Amer) Troponin I 0.07 H* Stool Occult Blood Staphylococcus sp PCR DETECTED A 12/24/18 12/24/18 12/24/18 01:58 07:26 13:21 Hgb Hct Creatinine Est GFR (Non-Af Amer) Troponin I 0.06 H* 0.06 H* 0.06 H* Stool Occult Blood Staphylococcus sp PCR 12/24/18 12/25/18 12/25/18 17:30 05:40 05:40 Hgb 7.6 L D Hct 23.8 L Creatinine 8.95 H Est GFR (Non-Af Amer) 5 L Troponin I Stool Occult Blood Positive A Staphylococcus sp PCR ITS Impressions Chest X-Ray 12/23/18 18:55 IMPRESSION: No acute findings D/ / Jillian Fields MD / Jillian Fields MD Interpreting Provider: Jillian Fields MD Abdomen/Pelvis CT 12/23/18 20:06 IMPRESSION: 1. No acute pulmonary emboli. 2. Pulmonary findings suggesting small airways disease and acute bronchiolitis. No lobar pneumonia. 3. New 2 mm right lower lobe solid pulmonary nodules, see recommendations. 4. 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 There is no significant mass effect. 5. Coronary and aortic atherosclerosis with no aortic aneurysm or dissection. 6. No acute bowel abnormality to account for GI hemorrhage. Mild sigmoid diverticulosis. 7. Stable right hemiabdomen eventration. Interval resolution left abdominal wall hematoma identified on the 06/23/2018 exam. 8. Stable severe bilateral renal atrophy. No renal transplant is identified. 9. Stable nonspecific gastric fold thickening which could relate to gastritis. This could be further evaluated with endoscopy. RECOMMENDATIONS: Fleischner Society guidelines for follow-up and management of incidentally detected pulmonary nodules: Multiple Solid Nodules: Nodule size less than 6 mm In a low-risk patient, no routine follow-up. In a high-risk patient, optional CT at 12 months. - Low risk patients include individuals with minimal or absent history of smoking and other known risk factors. - High risk patients include individuals with a history or smoking or known risk factors. Radiology 2017 http://pubs.rsna.org/doi/full/10.1148/radiol.3276775639 D/ / 12/23/2018 22:27:39 Wesley Dorsey MD / brittany Interpreting Provider: Wesley Dorsey MD Chest CTA 12/23/18 20:06 IMPRESSION: 1. No acute pulmonary emboli. 2. Pulmonary findings suggesting small airways disease and acute bronchiolitis. No lobar pneumonia. 3. New 2 mm right lower lobe solid pulmonary nodules, see recommendations. 4. 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 There is no significant mass effect. 5. Coronary and aortic atherosclerosis with no aortic aneurysm or dissection. 6. No acute bowel abnormality to account for GI hemorrhage. Mild sigmoid diverticulosis. 7. Stable right hemiabdomen eventration. Interval resolution left abdominal wall hematoma identified on the 06/23/2018 exam. 8. Stable severe bilateral renal atrophy. No renal transplant is identified. 9. Stable nonspecific gastric fold thickening which could relate to gastritis. This could be further evaluated with endoscopy. RECOMMENDATIONS: Fleischner Society guidelines for follow-up and management of incidentally detected pulmonary nodules: Multiple Solid Nodules: Nodule size less than 6 mm In a low-risk patient, no routine follow-up. In a high-risk patient, optional CT at 12 months. - Low risk patients include individuals with minimal or absent history of smoking and other known risk factors. - High risk patients include individuals with a history or smoking or known risk factors. Radiology 2017 http://pubs.rsna.org/doi/full/10.1148/radiol.2585031060 D/ / 12/23/2018 22:27:39 Wesley Dorsey MD / brittany Interpreting Provider: Wesley Dorsey MD Echocardiogram 12/24/18 04:06 Impressions: LVEF 60-65%. Normal LV chamber size, wall thickness and function. Moderate left ventricular diastolic dysfunction. Normal right ventricular structure and function. Mild aortic stenosis. Mean gradient 17 mmHg. Mild mitral stenosis. Mean gradient 5 mmHg. No evidence of pulmonary hypertension. No obvious vegetations. Consider AMANDA if clinically indicated. Left Ventricular Wall Motion: Rest Echo Findings All wall segments showed normal motion. Findings: Study Quality * Technically adequate exam. ECG Findings * Normal sinus rhythm. Left Ventricle * LVEF 60-65%. * Normal LV chamber size, wall thickness and function. * Moderate left ventricular diastolic dysfunction. Right Ventricle * Normal right ventricular structure and function. Left Atrium * Mildly dilated left atrium. Right Atrium * Normal right atrial size. Interatrial Septum * Interatrial septum not well evaluated. Aortic Valve * Aortic valve not well visualized. * Mildly calcified aortic valve leaflets. * Trace aortic regurgitation. * Mild aortic stenosis. Mean gradient 17 mmHg. Mitral Valve * Mildly calcified mitral valve leaflets. * Mild to moderate mitral annular calcification. * Trace mitral regurgitation. * Mild mitral stenosis. Mean gradient 5 mmHg. Tricuspid Valve * Normal tricuspid valve structure and function. * Trace tricuspid regurgitation. * No evidence of pulmonary hypertension. Pulmonic Valve * Pulmonic valve not well visualized. * Trace pulmonic regurgitation. Aorta * Normally sized aortic root. Pericardium * The pericardium appears normal. IVC * Normal IVC dimensions and inspiratory collapse. Pulmonary Artery * Pulmonary artery not well visualized. Lumbar Spine MRI 12/24/18 04:06 IMPRESSION: Motion degraded study. Multilevel degenerative changes of the lumbar spine. There is moderate spinal canal stenosis at L4-L5. There is mild spinal canal stenosis at T11-T12, L1-L2, and L3-L4. Mild multilevel neural foraminal narrowing. D/ / 12/24/2018 10:58:11 Milton Ocasio MD / brittany Interpreting Provider: Milton Ocasio MD Active Medications Acetaminophen (Tylenol) 650 mg PO Q6HR PRN PRN Reason: Fever Stop: 06/25/19 11:59 Last Admin: 12/24/18 14:05 Dose: 650 mg Documented by: Albuterol Sulfate (Proventil Neb) 2.5 mg IH Q8H PRN; Protocol PRN Reason: Shortness Of Breath Stop: 06/25/19 16:59 Albuterol Sulfate (Proventil Inhaler) 2 puff IH Q4H PRN PRN Reason: Shortness Of Breath Stop: 06/25/19 16:59 Budesonide/Formoterol Fumarate (Symbicort) 2 puff IH BIDR [facility]; Protocol Stop: 06/25/19 10:01 Last Admin: 12/25/18 08:11 Dose: 2 puff Documented by: Calcium Acetate (Phos-Lo) 2,668 mg PO TIDWM [facility] Stop: 06/25/19 17:01 Last Admin: 12/25/18 07:49 Dose: Not Given Documented by: Clonidine HCl (Clonidine Hcl) 0.1 mg PO ONCE PRN PRN Reason: Hypertension Stop: 06/25/19 17:01 Dextrose/Water (Dextrose 50% (Syg)) 25 ml IVP AD PRN PRN Reason: Hypoglycemia Stop: 06/25/19 01:23 Epoetin Yayo (Procrit) 4,500 unit 50 unit/kg (4500 unit) SQ 3XW [facility] Stop: 06/27/19 09:01 Fluticasone Propionate (Flonase) 50 mcg NS DAILY PRN; Protocol PRN Reason: Allergy Symptoms Stop: 06/25/19 16:59 Last Admin: 12/25/18 07:49 Dose: 50 mcg Documented by: Glucagon (Glucagen) 1 mg IM ONCE PRN PRN Reason: Hypoglycemia Stop: 06/25/19 01:23 Glucose (Gluctose) 15 gm PO ONCE PRN PRN Reason: Hypoglycemia Stop: 06/25/19 01:23 Glucose (Gluctose) 30 gm PO ONCE PRN PRN Reason: Hypoglycemia Stop: 06/25/19 01:23 Dextrose (Dextrose 5%) 1,000 mls @ 100 mls/hr IVC .Q10H PRN PRN Reason: HYPOGLYCEMIA Stop: 06/25/19 01:23 Loratadine (Claritin) 10 mg PO DAILY [facility] Stop: 06/26/19 09:01 Last Admin: 12/25/18 07:49 Dose: 10 mg Documented by: Lorazepam (Ativan) 0.5 mg PO BID PRN PRN Reason: Anxiety Stop: 06/25/19 16:59 Magnesium Oxide (Mag-Ox) 400 mg PO MoTuWe@0900 ANNIE Stop: 06/27/19 09:01 Metoprolol Tartrate (Lopressor) 25 mg PO BID ANNIE Stop: 06/25/19 09:01 Last Admin: 12/25/18 07:49 Dose: 25 mg Documented by: Montelukast Sodium (Singulair) 10 mg PO QPM ANNIE Stop: 06/25/19 18:01 Last Admin: 12/24/18 18:50 Dose: 10 mg Documented by: Naloxone HCl (Narcan) 0.4 mg IVP Q2MPRN PRN PRN Reason: SEE COMMENTS Stop: 06/25/19 01:23 Omeprazole (Prilosec) 40 mg PO BIDAC [facility] Stop: 06/25/19 17:31 Last Admin: 12/25/18 07:49 Dose: 40 mg Documented by: Ondansetron HCl (Zofran Odt) 4 mg SL Q8HR PRN PRN Reason: Nausea And Vomiting Stop: 06/25/19 01:23 Sertraline HCl (Zoloft) 100 mg PO DAILY [facility] Stop: 06/26/19 09:01 Last Admin: 12/25/18 07:49 Dose: 100 mg Documented by: Vancomycin HCl (Vancocin) 0 each IVPB RPHPROT PRN PRN Reason: PULSE DOSE Stop: 06/25/19 04:15 Vitamin B Complex/Vit C/Folic Acid (Renal Caps Softgel) 1 cap PO 3XW ANNIE Stop: 06/27/19 09:01 Vitamin D (Vitamin D) 1,000 unit PO DAILY [facility] Stop: 06/26/19 09:01 Last Admin: 12/25/18 07:49 Dose: 1,000 unit Documented by: Zolpidem Tartrate (Ambien) 10 mg PO HS PRN; Protocol PRN Reason: Sleep Stop: 06/25/19 15:31 Last Admin: 12/24/18 21:24 Dose: 10 mg Documented by: - Imaging and Cardiology Echo: report reviewed Consult Discharge Plan - Plan Referrals: Demetra Ellison, POULTRY HUSBANDRY TEACHER [Primary Care Provider] -
--- NOTE | 2018-12-25 10:18 | Nephrology Progress Note ---
Date of Encounter: 12/25/18 Time of Encounter: 08:48 - Assessment and Plan (1) ESRD on dialysis Current Visit: No Status: Chronic Next HD planned for Wednesday, tentatively. BCx are already positive here. See my note from yesterday, re: she will likely need a Vascular and ID consult to determine the best course of dialysis access options (i.e., ?salvage the AVF vs resection, or dialysis catheter placement?, or would she need a line holiday?, and does she need a AMANDA for I.E. work up). (2) AV fistula infection Current Visit: Yes Status: Acute Qualifiers: Encounter type: initial encounter Qualified Code(s): T82.7XXA - Infection and inflammatory reaction due to other cardiac and vascular devices, implants and grafts, initial encounter (3) Hypotension Current Visit: Yes Status: Acute Qualifiers: Hypotension type: unspecified hypotension type Qualified Code(s): I95.9 - Hypotension, unspecified (4) Anemia Current Visit: No Status: Chronic Qualifiers: Anemia type: due to chronic kidney disease Chronic kidney disease stage: on chronic dialysis Qualified Code(s): N18.6 - End stage renal disease; D63.1 - Anemia in chronic kidney disease; Z99.2 - Dependence on renal dialysis Subjective Principal diagnosis: CP, Trop Interval history: The patient was seen and examined, and she did not affirm having nausea, vomiting, or diarrhea. She reported that she was able to eat breakfast, and feels relatively well. She was noted to have blood cultures already positive thus far during this hospitalization Objective - Vital Signs Vital signs: Vital Signs Temp Pulse Resp BP Pulse Ox 12/25/18 08:11 16 98 12/25/18 07:33 97.7 F 87 18 123/73 98 12/25/18 03:47 98.2 F 87 16 117/63 96 12/24/18 23:51 98.3 F 81 16 96/51 94 12/24/18 20:48 97 12/24/18 20:44 97.9 F 78 17 121/62 97 12/24/18 20:23 18 95 12/24/18 15:13 97.3 F L 79 16 102/64 96 12/24/18 13:53 98.2 F 80 16 108/74 99 Intake and Output 12/24/18 12/25/18 12/25/18 23:59 07:59 15:59 Other: # Voids 0 # Bowel Movements 0 Weight 92.3 kg Blood Glucose* 127 Patient Weight 12/25/18 23:59 Weight 92.3 kg - General Appearance Exam: General appearance: well-developed, well-nourished, appears started age, fatigue EENT: ATNC, PERRL, mucous membranes moist Neck: supple Respiratory: clear Cardiology: holosystolic murmur (very soft), no edema, regular rate, regular rhythm, normal S1, normal S2 - Dialysis Access Dialysis Vascular Access: Arteriovenous Fistula (left upper extremity AVF with warmth noted. +Thrill/+Bruit) thrill: Yes bruit: Yes Gastrointestinal: normoactive bowel sounds, no guarding Integumentary: warm and dry Neurologic: no focal deficit, no asterixis, alert and oriented x3 Musculoskeletal: no deformities, no clubbing Psychiatric: mood/affect appropriate, cooperative - Lab 12/25/18 05:40 12/25/18 05:40 Most recent lab results 12/25/18 05:40 Calcium 9.1 Consult Discharge Plan - Plan Referrals: Demetra Ellison, CREW SCHEDULER [Primary Care Provider] -
[2018-12-25] MEDS: Acetaminophen 325 MG TABLET PO PRN (12:20)
--- NOTE | 2018-12-25 13:10 | Internal Med Progress Note ---
Hospitalist Progress Note - Encounter Date of Encounter: 12/25/18 Time of Encounter: 09:20 - Subjective Interval History: No acute events overnight. Blood cultures yielding 2/2 gram positive cocci. Patient denies fever, chills, nausea and vomiting. - Exam Vitals: Temp Pulse Resp BP Pulse Ox 36.7 C 79 18 125/80 95 12/25/18 11:41 12/25/18 11:41 12/25/18 11:41 12/25/18 11:41 12/25/18 11:41 Exam: GENERAL: Not in distress. Alert and Oriented HEENT: EOMI, PERRLA MOUTH: Moist oral mucosa. NECK:No JVD, No lymph nodes. CHEST AND LUNGS: Normal breath sounds, no wheezes or crackles HEART: S1 and S2 normal, no murmurs ABDOMEN: Soft, nontender, obese. SKIN: Normal color, no rahses, no lesions EXTREMITIES: Left brachiocephalic fistula site with a smal point of induration at one edge with tenderness. NEUROLOGICAL: Normal cognition, normal motor and sensory exam. - Assessment and Plan (1) Gram-positive bacteremia Current Visit: Yes Status: Acute Assessment and Plan: 2 out of 2 blood culture samples positive for gram-positive cocci. Staphylococcal species but not staph aureus Social history likely to be from patient's AV fistula TTE did not show any vegetations Continue IV antibiotics Vascular surgery consulted to evaluate fistula. ID consult in place. (2) Pancytopenia Current Visit: Yes Status: Acute Assessment and Plan: Patient has a drop in all 3 cell lines Hemoglobin7.6, WBC 2.8 and platelet 85 This looks like an acute drop compared to lab report from yesterday Patient has a microcytic anemia This presentation could be from MDS Order blood smear Consulting cartridge belt puncher (3) Obese Current Visit: No Status: Acute Assessment and Plan: Patient counseled on weight loss options. (4) Atrial fibrillation Current Visit: No Status: Chronic Assessment and Plan: Currently rate controlled. Patient not anticoagulated due to history of severe GI bleed. Continue beta blockers (5) GI bleed Current Visit: No Status: Resolved Assessment and Plan: Patient reports dark tarry stools. Hemoglobin 7.6 Stool occult blood positive We will consult GI Monitor H&H (6) DVT prophylaxis Current Visit: No Status: Acute Assessment and Plan: EPCDs - Time Spent with Patient Total time spent is greater than 50% in coordination of care (as documented) at patient's floor/unit and/or counseling patient: Internal Medicine: Result - Labs CBC & Chem 7: 12/25/18 05:40 12/25/18 05:40 Labs: Short CBC 12/25/18 Range/Units 05:40 WBC 3.8 L (4.3-11.1) K/mcL Hgb 7.6 L D (11.5-15.4) g/dL Hct 23.8 L (35.3-44.9) % Plt Count 85 L (140-400) K/mcL BMP 12/25/18 05:40 Sodium 134 L Potassium 4.9 Chloride 88 L Carbon Dioxide 31 H BUN 57 H Creatinine 8.95 H Glucose 107 H Calcium 9.1 Cardiac Enzymes 12/24/18 Range/Units 13:21 Troponin I 0.06 H* (< 0.04) ng/mL - ABG Interpretation ABG results: PT/INR, D-dimer PT 13.4 Seconds (9.4-12.1) H 12/24/18 01:58 Consult Discharge Plan - Plan Referrals: Demetra Ellison, NEEDLE LEADER [Primary Care Provider] - (3) Obese Qualifiers: Obesity type: due to excess calories Body mass index: BMI 32.0-32.9 Qualified Code(s): E66.09 - Other obesity due to excess calories; Z68.32 - Body mass index (BMI) 32.0-32.9, adult (4) Atrial fibrillation Qualifiers: Atrial fibrillation type: paroxysmal Qualified Code(s): I48.0 - Paroxysmal atrial fibrillation (5) GI bleed Qualifiers: GI bleed type/associated pathology: melena Qualified Code(s): K92.1 - Melena
[2018-12-25] MEDS: Ondansetron ODT 4 MG TAB.RAPDIS SL PRN (17:37)
[2018-12-26 04:41] LABS: Hemoglobin 6.4 g/dL (11.5-15.4); Red Cell Distribution Width 17.1 % (11.5-14.5)
[2018-12-26 04:42] LABS: Hematocrit 19.6 % (35.3-44.9); Immature Platelets 8.2 % (1.1-6.1); Mean Corpuscular HGB Conc 32.7 g/dL (31.6-35.5); Mean Corpuscular Volume 104.3 fL (83.0-100.0); Mean Platelet Volume 12.5 fL (9.4-12.4); Red Blood Count 1.88 M/mcL (3.82-4.97); White Blood Count 4.6 K/mcL (4.3-11.1)
[2018-12-26 05:01] LABS: Calcium 9.1 mg/dL (8.6-10.3); Potassium 5.3 mEq/L (3.5-5.1)
[2018-12-26] MEDS: Budesonide/Formoterol 160/4.5 1 PUFF INH IH SCH ×2 (07:29→20:10)
[2018-12-26] MEDS ORDERED: 0.9 % Sodium Chloride 250 ML IVC PRN (07:36)
[2018-12-26] MEDS ORDERED: 0.9 % Sodium Chloride 1,000 ML PRIME SCH (07:45)
[2018-12-26] MEDS: Cholecalciferol (D-3) 1,000 UNIT (25MCG) TABLET PO SCH (08:30)
[2018-12-26] MEDS: Renal Vitamin 1 CAP CAPSULE PO SCH (08:30)
[2018-12-26] MEDS: Loratadine 10 MG TABLET PO SCH (08:30)
[2018-12-26] MEDS: Calcium Acetate 667 MG CAPSULE PO SCH ×3 (08:31→17:26)
[2018-12-26] MEDS: Magnesium Oxide 400 MG TABLET PO SCH (08:33)
[2018-12-26] MEDS ORDERED: 0.9 % Sodium Chloride 250 ML ONE (09:01)
--- NOTE | 2018-12-26 09:08 | Electrocardiograph Report ---
[place] [address] Test Date: 2018-12-23 Pat Name: Katlyn Taylor Department: [id number] Room: [facility] Gender: F Clipman: : 1965 Requested By: [id number] Order Number: [id number] Reading MD: Artur Forman Measurements Intervals [place] Rate: 151 P: DC: QRS: 63 QRSD: 81 T: QT: 315 QTc: 500 Interpretive Statements Atrial fibrillation Nonspecific repol abnormality, diffuse leads Electronically Signed On 12-26-2018 9:06:40 EDT by Artur Forman
--- NOTE | 2018-12-26 09:12 | Electrocardiograph Report ---
[address] [place] [address] Test Date: 2018-12-24 Pat Name: Katlyn Taylor Department: 112 Room: 2A Gender: F Electronics Scale Tester: : 1965 Requested By: Rowdy Zayas Order Number: [id number] Reading MD: Artur Forman Measurements Intervals [place] Rate: 129 P: IN: 0 QRS: 59 QRSD: 84 T: 154 QT: 347 QTc: 423 Interpretive Statements ATRIAL FIBRILLATION WITH RAPID VENTRICULAR RESPONSE ST DEVIATION AND MODERATE T-WAVE ABNORMALITY, CONSIDER LATERAL ISCHEMIA ST DEVIATION AND MODERATE T-WAVE ABNORMALITY, CONSIDER INFERIOR ISCHEMIA Electronically Signed On 12-26-2018 9:10:33 EDT by Artur Forman
--- NOTE | 2018-12-26 09:13 | Electrocardiograph Report ---
[place] [address] Test Date: 2018-12-24 Pat Name: Katlyn Taylor Department: 112 Room: 2A Gender: F Garde Manager: : 1965 Requested By: Rowdy Zayas Order Number: [id number] Reading MD: Artur Forman Measurements Intervals [place] Rate: 78 P: CO: 0 QRS: 53 QRSD: 86 T: 93 QT: 443 QTc: 476 Interpretive Statements Sinus rhythm with PACs Lateral ST-T changes, consider ischemia Prolonged QT interval Electronically Signed On 12-26-2018 9:13:00 EDT by Artur Forman
--- NOTE | 2018-12-26 10:11 | Nephrology Progress Note ---
Date of Encounter: 12/26/18 Time of Encounter: 10:08 - Assessment and Plan (1) ESRD on dialysis Current Visit: No Status: Chronic Current regimen is MWF in [place] with Dr. Randall. HD in progress. Renal diet Renal vitamins Strict I/O Avoid nephrotoxins and renal dose all medications. Will order additional UF or HD as needed. Will defer to primary and infectious disease for recommendations with access. Will accommodate a line holiday versus salvaging the fistula, etc. (2) Anemia Current Visit: No Status: Chronic Hemoglobin is 6.4, 1 unit of PRBCs infusing in hemodialysis. Total of 2 PRBCs has been ordered. Qualifiers: Anemia type: due to chronic kidney disease Chronic kidney disease stage: on chronic dialysis Qualified Code(s): N18.6 - End stage renal disease; D63.1 - Anemia in chronic kidney disease; Z99.2 - Dependence on renal dialysis (3) Hypotension Current Visit: Yes Status: Acute Stable at bedside. Qualifiers: Hypotension type: unspecified hypotension type Qualified Code(s): I95.9 - Hypotension, unspecified (4) AV fistula infection Current Visit: Yes Status: Acute See above. Qualifiers: Encounter type: initial encounter Qualified Code(s): T82.7XXA - Infection and inflammatory reaction due to other cardiac and vascular devices, implants and grafts, initial encounter Subjective Principal diagnosis: CP, Trop Interval history: Patient seen and examined in hemodialysis. Tolerating well. 1 unit of PRBCs infusing. Denies chest pain or shortness of breath. Denies nausea, vomiting or diarrhea. Objective - Vital Signs Vital signs: Vital Signs Temp Pulse Resp BP Pulse Ox 12/26/18 09:45 97.3 F L 75 18 103/88 96 12/26/18 07:53 98.0 F 75 15 117/67 97 12/26/18 07:30 15 98 12/26/18 04:55 98.0 F 89 15 147/76 98 12/26/18 00:41 98.0 F 87 16 111/71 92 12/25/18 22:12 16 95 12/25/18 20:33 95 12/25/18 16:05 97.9 F 78 18 117/82 97 12/25/18 11:41 98.0 F 79 18 125/80 95 Intake and Output 12/25/18 12/26/18 12/26/18 23:59 07:59 15:59 Intake Total 0 / 0 0 / 0 Output Total 0 / 0 Balance 0 / 0 0 / 0 Intake: Oral 0 / 0 Blood Product 0 / 0 Rbcs Leuko Poor As-3 2nd Unit 0 / 0 [id number] Output: Urine 0 / 0 Other: Meal Dinner - General Appearance General appearance: Present: well-developed, well-nourished EENT: Present: ATNC, hearing intact, vision intact Neck: Present: supple Respiratory: Present: clear Cardiology: Present: no edema, normal S1, normal S2 Dialysis Vascular Access: Arteriovenous Fistula thrill: Yes bruit: Yes Gastrointestinal: Present: normoactive bowel sounds, no tenderness, no guarding Integumentary: Present: no rash, warm and dry Neurologic: Present: alert and oriented x3 Musculoskeletal: Present: no deformities, no erythema Psychiatric: Present: mood/affect appropriate, cooperative - Lab 12/26/18 04:12 12/26/18 04:12 Most recent lab results 12/26/18 04:12 Calcium 9.1 Consult Discharge Plan - Plan Referrals: Demetra Ellison HAND ROUTER OPERATOR [Primary Care Provider] -
--- NOTE | 2018-12-26 10:37 | Infectious Disease Consult ---
Infectious Disease-Consult - Encounter Date/Time Date of Encounter: 12/26/18 Time of Encounter: 10:33 - Data of Consult Patient: new to practice Reason for consult: "gram positive bacteremia" Consult date: 12/26/18 Requesting Physician: Umm Medina MD Primary Care Provider: Demetra Ellison, - HPI HPI: Ms. Taylor is a 53-year-old female with past medical history of end-stage renal disease on hemodialysis, A. fib not anticoagulated due to history of GI bleed, CAD, hyperlipidemia, hypertension, PAD. The patient was admitted to the hospital 12/23/18 for fever. We are consulted 12/26/18 for further workup and treatment recommendations for bacteremia. Briefly, the patient is a 53-year-old female with past medical history as stated above. The patient presented to the emergency department at the direction of her special projects coordinator with complaints of positive blood cultures. Apparently, last Wednesday she was feeling generally poor. On Wednesday, she had blood cultures drawn at the hemodialysis unit. On the day of admission, she was contacted because those blood cultures came back positive. Upon arrival, should a low- grade temp was tachycardic and hypotensive. White blood cell count was normal. Lactic acid was normal. Troponin was mildly elevated 0.07. Chest x-ray and CTA of the chest, abdomen, and pelvis were negative for infection. Blood cultures were obtained 2 sets peripherally and came back +2 out of 2 for staph lugdunensis. She was started empirically on IV antibiotics and admitted to the hospital for further evaluation. Since admission, the patient's tachycardia has resolved. She has been afebrile. Her white blood cell count has remained normal. She had a transthoracic echo that showed an EF of 60-65%, but no vegetations. She had an L-spine MRI that was negative for infection. Nephrology was consulted to assist with management of her hemodialysis. Cardiology was consulted to assist with management of her elevated troponin. She had fecal occult blood test that was positive. She has been consult and she is planning to undergo an EGD later today. Repeat blood cu ltures from 12/26/18 are pending 2 sets. GI, hematology/oncology, and vascular surgery consult are pending. Currently, the patient is on IV vancomycin. We have been asked to evaluate and make further recommendations. During my exam today, the patient endorses the history as stated above. States she felt generally unwell and "flu-like" on Wednesday that persisted on Wednesday. Reports fevers (tmax 102), chills, rigors. Denies headache or neck pain. Report generalized fatigue and malaise. States she was having some chest pain upon arrival, but this resolved. Denies shortness of breath or cough. Reports nausea, but denies any vomiting. Denies abdominal pain or urinary complaints. Denies diarrhea. States her appetite is overall pretty poor. Reports chronic pain in her shoulders and hips secondary to previous joint replacements, but denies any red, hot, swollen joints. She states she continues to have lower back pain. Denies oral thrush or skin rashes. States she has had a reddened raised area to her AV fistula site for the past 6 months. States sometimes it does drain some serous fluid. I am unable to completely assess this due to her AV fistula currently being accessed for dialysis. The patient lives at home with her . She does not work outside the home. She denies tobacco, alcohol, illicit drug use. Denies chronic infectious diseases. Denies recent travel. - ROS Review of Systems: All systems reviewed and no additional remarkable complaints except as stated. - Results CBC & Chem 7: 12/27/18 03:43 12/27/18 03:43 - Exam Vitals: Temp Pulse Resp BP Pulse Ox 97.3 F L 75 18 103/88 96 12/26/18 09:45 12/26/18 09:45 12/26/18 09:45 12/26/18 09:45 12/26/18 09:45 Exam: Head: Atraumatic, normal inspection, normocephalic. Eye: EOMI, PERRLA, no scleral icterus noted. No subconjunctival hemorrhage noted. ENT: Mucous membranes moist. No odontogenic infection noted. Neck: Normal inspection, no meningismus. Respiratory: Clear to auscultation. No rales, respiratory distress, rhonchi, or wheezes noted. Cardiovascular: Regular rate and irregular rhythm, S1 and S2 audible. No murmurs, rubs, or gallops. GI: Soft, obese, normal bowel sounds. Nontender. Extremities:No joint swelling, pedal edema, or tenderness noted. AV fistula noted to the left upper extremity, currently access for hemodialysis. Back: Unable to assess due to the patient currently being on dialysis. Neurological: Alert, oriented 3, no focal deficits. Psychiatric: normal affect, normal mood. Skin: Dry, intact, warm. Normal color. No rashes. No endocarditis stigmata noted. Zolpidem [Ambien] 10 mg PO HS PRN 03/20/16 [History] Esomeprazole Magnesium [Nexium] 40 mg PO BID 05/20/18 [History] Fluticasone Propionate Nasal [Flonase] 1 spray NS DAILY PRN 05/20/18 [History] Sertraline [Zoloft] 100 mg PO DAILY 05/20/18 [History] Cetirizine HCl [All Day Allergy] 10 mg PO DAILY 06/10/18 [History] Albuterol Neb [Proventil Neb] 2.5 mg IH Q8H PRN 09/25/18 [History] Albuterol Sulfate [Ventolin Hfa] 2 puff IH Q4H PRN 09/25/18 [History] Budesonide/Formoterol 160/4.5 [Symbicort 160/4.5] 2 puff IH BIDR 09/25/18 [History] Magnesium Oxide 400 mg PO MOTUWE 09/25/18 [History] Metoprolol [Lopressor] 25 mg PO BID 09/25/18 [History] Montelukast [Singulair] 10 mg PO QPM tablet 09/29/18 [Rx] Renal Vitamin [Renal Caps Softgel] 1 cap PO 3XW capsule 09/29/18 [Rx] Cholecalciferol (Vitamin D3) [Vitamin D3] 10,000 unit PO MO 10/13/18 [History] LORazepam [Ativan] 0.5 mg PO BID PRN 10/13/18 [History] cloNIDine HCl [CloNIDine HCl] 0.1 mg PO ONCE PRN MDD 0.2 mg 12/23/18 [History] Calcium Acetate [Phos-LO] 2,668 mg PO TIDWM 12/24/18 [History] Ondansetron HCl [Zofran] 4 mg PO Q8H PRN 12/24/18 [History] Allergy/AdvReac Type Severity Reaction Status Date / Time cephalexin [From Keflex] Allergy Hives, ITCH Verified 12/24/18 13:17 - Assessment and Plan (1) Sepsis Current Visit: Yes Status: Acute The patient had 2 sepsis criteria on admission. Likely secondary to bacteremia. Improved. Afebrile. Tachycardia resolved. Blood cultures from 12/23/18 are +2 out of 2 sets for S. lugdenensis. Repeat blood cultures drawn 12/26/18 are pending x 2 sets. Qualifiers: Sepsis type: sepsis due to unspecified organism Sepsis acute organ dysfunction status: without acute organ dysfunction Qualified Code(s): A41.9 - Sepsis, unspecified organism SNOMED Code(s): 94302598 (2) Gram-positive bacteremia Current Visit: Yes Status: Acute Causative organism: S. lugdunensis. Source: Unclear. AV fistula vs. other Blood cultures from 12/23/18 are +2 out of 2 sets for S. lugdenensis. Repeat blood cultures drawn 12/26/18 are pending x 2 sets. No endocarditis stigmata noted on exam. Currently on IV Vancomycin. SNOMED Code(s): 888419776436 (3) Anemia due to blood loss, acute Current Visit: No Status: Acute FOBT positive. EGD planned for later today. GI consultation pending. SNOMED Code(s): 556700016 (4) Elevated troponin Current Visit: No Status: Chronic Cardiology consulted. SNOMED Code(s): 346090643, 262170762, 448495511 (5) Atrial fibrillation Current Visit: No Status: Chronic Qualifiers: Atrial fibrillation type: paroxysmal Qualified Code(s): I48.0 - Paroxysmal atrial fibrillation SNOMED Code(s): 55294399 (6) COPD (chronic obstructive pulmonary disease) Current Visit: No Status: Resolved Qualifiers: COPD type: COPD with acute exacerbation Qualified Code(s): J44.1 - Chronic obstructive pulmonary disease with (acute) exacerbation SNOMED Code(s): 39755839 (7) Obese Current Visit: No Status: Acute Qualifiers: Obesity type: due to excess calories Body mass index: BMI 32.0-32.9 Qualified Code(s): E66.09 - Other obesity due to excess calories; Z68.32 - Body mass index (BMI) 32.0-32.9, adult SNOMED Code(s): 004075671, 177143462 (8) HTN (hypertension) Current Visit: No Status: Chronic Qualifiers: Hypertension type: essential hypertension Qualified Code(s): I10 - Essential (primary) hypertension SNOMED Code(s): 50980350 (9) HLD (hyperlipidemia) Current Visit: No Status: Chronic Qualifiers: Hyperlipidemia type: unspecified Qualified Code(s): E78.5 - Hyperlipidemia, unspecified SNOMED Code(s): 08275801 (10) ESRD on dialysis Current Visit: No Status: Chronic Nephrology consulted and following. SNOMED Code(s): 215503530 - Recommendations Recommendations: Await repeat blood cultures. Get UTS of the LUE. Await recommendations from the vascular, GI, and hematology teams. ESRD management per the nephrology team. Continue Vancomycin IV for now. Pharmacy to dose. Goal trough ~15. Duration of treatment depends on the clinical picture. Monitor labs and dose-adjust antibiotics. Past Med Surg Social Fam HX - Past Medical History Medical history: atrial fibrillation, coronary artery disease, dialysis, GI bleed, hyperlipidemia, hypertension, peripheral artery disease, renal disease, SVT, thyroid disease, other Additional medical history: HD fistula TYLER, dialysis MWF Psychiatric history: anxiety, depression, panic disorder - Past Surgical History Surgical History: cholecystectomy, hip replacement, orthopedic, other, thyroidectomy, transplant Additional surgical history: R kidney transplant, dialysis fistula removal and graft to LUE, cardiac ablation - Social History Smoking Status: Former smoker Smokeless Tobacco Status: No Alcohol use: none Drug use: none - Family History Mother Living Status: Hx Family Endocrine Disorder: Yes (Type 2 DM) Father Living Status: Hx Family Cardiac Disorders: Yes (HTN) Hx Family Respiratory Disorders: Yes (COPD) Hx Family Cancer: Yes (Colon ca) Hx Family GI Disorders: Yes (colon cancer) Hx Family Endocrine Disorder: Yes (DM Type 2) Consult Discharge Plan - Plan Referrals: Demetra Ellison CNP [Primary Care Provider] - - Attending Attestation I have personally performed a face to face evaluation on this patient. I have reviewed and agree with the care plan. History and Exam by me shows: This is an addendum to original report dictated by Karla Becerra CNP. Please refer to Karla's note for full detail. Agree with above history of present illness, review of system and physical exam findings. Assessment and plan: Bacteremia with Staphylococcus lugdunensis source likely cellulitis over the fistula End-stage renal disease on hemodialysis Recommendations: Patient will need to be started on vancomycin. Even though the staph lugdunensis is insulin sensitive, I am going to do vancomycin causes easier to give with dialysis on dialysis days. Appreciate vascular surgery input. Continue to monitor closely.
--- NOTE | 2018-12-26 11:55 | Internal Med Progress Note ---
Hospitalist Progress Note - Encounter Date of Encounter: 12/26/18 Time of Encounter: 08:25 - Subjective Interval History: No acute events overnight. Patient seen and examined. She denies palpitations, chest pain fever, chills and shortness of breath. - Exam Vitals: Temp Pulse Resp BP Pulse Ox 36.7 C 76 18 107/50 98 12/26/18 11:34 12/26/18 11:34 12/26/18 11:34 12/26/18 11:34 12/26/18 11:02 Exam: GENERAL: Not in distress. Alert and Oriented HEENT: EOMI, PERRLA MOUTH: Moist oral mucosa. NECK:No JVD, No lymph nodes. CHEST AND LUNGS: Normal breath sounds, no wheezes or crackles HEART: S1 and S2 normal, no murmurs ABDOMEN: Soft, nontender, obese. SKIN: Normal color, no rahses, no lesions EXTREMITIES: Left brachiocephalic fistula site with a smal point of induration at one edge with tenderness. NEUROLOGICAL: Normal cognition, normal motor and sensory exam. - Assessment and Plan (1) Gram-positive bacteremia Current Visit: Yes Status: Acute Assessment and Plan: 2 out of 2 blood culture samples positive for gram-positive cocci. One set showing Staph lugdunensis Source likely AV fistula TTE did not show any vegetations Continue IV antibiotics Awaiting review bypass surgery. ID on board (2) GI bleed Current Visit: No Status: Resolved Assessment and Plan: Patient reports dark tarry stools. Hemoglobin 6.4 g/dL Stool occult blood positive Transfuse2 units of blood GI on board EGD today (3) Pancytopenia Current Visit: Yes Status: Acute Assessment and Plan: Patient has leukopenia and thrombocytopenia WBC 4.6 today Hemoglobin 6.4, platelets 76 Hematology on board. (4) Obese Current Visit: No Status: Acute Assessment and Plan: Patient counseled on weight loss options. (5) Atrial fibrillation Current Visit: No Status: Chronic Assessment and Plan: Currently rate controlled. Patient not anticoagulated due to history of severe GI bleed. Continue beta blockers (6) DVT prophylaxis Current Visit: No Status: Acute Assessment and Plan: EPCDs - Time Spent with Patient Total time spent is greater than 50% in coordination of care (as documented) at patient's floor/unit and/or counseling patient: Internal Medicine: Result - Labs CBC & Chem 7: 12/26/18 04:12 12/26/18 04:12 Labs: Short CBC 12/25/18 12/26/18 Range/Units 05:40 04:12 WBC 3.8 L 4.6 (4.3-11.1) K/mcL Hgb 7.6 L D 6.4 L (11.5-15.4) g/dL Hct 23.8 L 19.6 L (35.3-44.9) % Plt Count 85 L 79 L (140-400) K/mcL BMP 12/25/18 12/26/18 05:40 04:12 Sodium 134 L 132 L Potassium 4.9 5.3 H Chloride 88 L 90 L Carbon Dioxide 31 H 26 BUN 57 H 86 H Creatinine 8.95 H 11.03 H Glucose 107 H 105 Calcium 9.1 9.1 - ABG Interpretation ABG results: PT/INR, D-dimer PT 13.4 Seconds (9.4-12.1) H 12/24/18 01:58 - Impressions Impressions Lumbar Spine MRI 12/24/18 04:06 IMPRESSION: Motion degraded study. Multilevel degenerative changes of the lumbar spine. There is moderate spinal canal stenosis at L4-L5. There is mild spinal canal stenosis at T11-T12, L1-L2, and L3-L4. Mild multilevel neural foraminal narrowing. D/ : / 12/24/2018 10:58:11 Milton Ocasio MD / brittany Interpreting Provider: Milton Ocasio MD Consult Discharge Plan - Plan Referrals: Demetra Ellison, CHIEF SAFETY OFFICER [Primary Care Provider] - (2) GI bleed Qualifiers: GI bleed type/associated pathology: melena Qualified Code(s): K92.1 - Melena (4) Obese Qualifiers: Obesity type: due to excess calories Body mass index: BMI 32.0-32.9 Qualified Code(s): E66.09 - Other obesity due to excess calories; Z68.32 - Body mass index (BMI) 32.0-32.9, adult (5) Atrial fibrillation Qualifiers: Atrial fibrillation type: paroxysmal Qualified Code(s): I48.0 - Paroxysmal atrial fibrillation
--- NOTE | 2018-12-26 12:23 | Gastroenterology Consult Note ---
Date of Encounter: 12/26/18 Time of Encounter: 10:45 - Assessment and plan (1) Melena Current Visit: No Status: Acute Assessment and plan: Patient has had extensive negative workup for her GI bleeding (EGD, push enteroscopy, colonoscopy, capsule endoscopy). Patient with melena the past "several" days. Recent EGD and colonoscopy negative for source of bleeding. Plan to repeat push enteroscopy today. Keep patient NPO for procedure. (2) Anemia Current Visit: No Status: Chronic Assessment and plan: On admission Hgb 10.7, which has progressively worsened. Hgb 6.4 today with MCV 104.3 and platelets 79. Iron 161, ferritin >1500, B12 502, and folate >22.3. Fecal occult blood test positive. Continue to monitor CBC and transfuse PRBC as needed. Check hemochromatosis panel. Plan for push enteroscopy today. Keep patient NPO for scope. Qualifiers: Anemia type: unspecified type Qualified Code(s): D64.9 - Anemia, unspecified (3) ESRD on dialysis Current Visit: No Status: Chronic Assessment and plan: Per Nephrology. (4) Gram-positive bacteremia Current Visit: Yes Status: Acute Assessment and plan: On IV antibiotics. Per primary team and ID. - Time Spent With Patient Total time spent is greater than 50% in coordination of care (as documented) at patient's floor/unit and/or counseling patient: GI History of Present Illness - Data of Consult Patient: known to practice within the last 3 years Consult date: 12/26/18 Requesting Physician: Umm Medina MD - Consult Narrative Reason for consult: Anemia, FOBT positive History of present illness: Ms. Taylor is a 53 year old female with PMHx of Afib, CAD, ESRD, GI bleed pres ented to the ED with fever and chills. Blood cultures positive with gram positive cocci. CTA of the chest, abdomen, and pelvis were negative for infection or source of bleeding. Patient reports having black tarry stools for the past several days. We have been consulted to evaluate melena and anemia. On admission Hgb 10.7, which has progressively worsened. Hgb 6.4 today with MCV 104.3 and platelets 79. Iron 161, ferritin >1500, B12 502, and folate >22.3. Fecal occult blood test positive. Procedures: Colonoscopy 09/28/2017 Dr. Chan: Dark stool in entire colon, if continued melena repeat capsule endoscopy as outpatient. EGD 09/27/2018 Dr. Chan: Enlarged gastric fold. Capsule endoscopy 07/05/2018: No obvious pathology to explain anemia. Push enteroscopy 05/21/2018 Dr. Chan: Normal. Colonoscopy 05/21/2017 Dr. Chan: 6 mm tubular adenoma and 6 mm hyperplastic polyp. Colonoscopy 01/28/2018 Dr. Lamar: Ulcer in the ascending colon, 2 sessile serrated polyps ranging from 5-12 mm in size and hyperplastic polyps ranging from 5-8 mm in size, and internal hemorrhoids, repeat in 6 months. Colonoscopy 01/16/2018 Dr. Lamar: Tubular adenoma ranging from 12-23 mm, internal hemorrhoids. EGD 01/15/2018 Dr. Lamar: LA grade A reflux esophagitis, gastritis, gastroparesis. Colonoscopy 01/15/2018 Dr. Lamar: Two 25 mm polyps in the sigmoid colon unable to remove, internal hemorrhoids. NSAIDs: ASA Anticoagualtion: None Past Med Surg Social Fam HX - Past Medical History Medical history: atrial fibrillation, coronary artery disease, dialysis, GI bleed, hyperlipidemia, hypertension, peripheral artery disease, renal disease, SVT, thyroid disease, other Additional medical history: HD fistula TYLER, dialysis MWF Psychiatric history: anxiety, depression, panic disorder - Past Surgical History Surgical History: cholecystectomy, hip replacement, orthopedic, other, th yroidectomy, transplant Additional surgical history: R kidney transplant, dialysis fistula removal and graft to LUE, cardiac ablation - Social History Smoking Status: Former smoker Smokeless Tobacco Status: No Alcohol use: none Drug use: none - Family History Mother Living Status: Hx Family Endocrine Disorder: Yes (Type 2 DM) Father Living Status: Hx Family Cardiac Disorders: Yes (HTN) Hx Family Respiratory Disorders: Yes (COPD) Hx Family Cancer: Yes (Colon ca) Hx Family GI Disorders: Yes (colon cancer) Hx Family Endocrine Disorder: Yes (DM Type 2) - Gastrointestinal Gastrointestinal: Present: as per HPI - Constitutional Constitutional: as per HPI - EENT Eyes: as per HPI Ears: Present: as per HPI Nose, mouth and throat: Present: as per HPI - Cardiovascular Cardiovascular ROS: Present: as per HPI - Respiratory Respiratory IM: Present: as per HPI - Genitourinary Genitourinary: Absent: change in color, Urinary frequency - Neurological ROS Neurological GI: Present: as per HPI - Hematologic/Lymphatic Hematologic/Lymphatic pediatric: Present: as per HPI - Musculoskeletal Musculoskeletal ROS GI: Present: as per HPI - Integumentary Integumentary GI: Present: as per HPI - Psychiatric ROS Psychiatric GI: Present: as per HPI - Endocrine Endocrine IM: Present: as per HPI - Constitutional Vitals: Temp Pulse Resp BP Pulse Ox 98.1 F 76 18 99/62 98 12/26/18 11:34 12/26/18 11:34 12/26/18 11:34 12/26/18 12:05 12/26/18 11:02 General appearance: Present: cooperative, A&O X 3, no acute distress, answers questions appropriately - Head Head exam: Present: atraumatic, normocephalic - Eye Eye exam: Present: normal appearance, sclera anicteric - ENT ENT exam: Present: mucous membranes dry - Neck Neck exam general surgery: Present: normal inspection, trachea midline - Respiratory Respiratory exam: Present: CTAB. Absent: rales, rhonchi, wheezes - Cardiovascular Cardiovascular exam: Present: RRR, +S1, +S2 - GI/Abdominal GI/Abdominal exam: Present: soft, no peritoneal signs. Absent: distended, firm, guarding, tenderness - Rectal Rectal exam: Present: deferred - Extremities Exam Extremities exam: Present: warm Additional comments: AV fistula noted to the left upper extremity. - Neurological Exam Neurological exam: Present: no focal deficits - Psychiatric Psychiatric exam: Present: normal affect, normal mood - Skin Skin exam: Present: dry, intact, normal color, warm Results - Labs CBC & Chem 7: 12/26/18 04:12 12/26/18 04:12 Labs: Last Result 12/26/18 04:12 Calcium 9.1 Entire Visit 12/26/18 04:12 Hgb 6.4 L Hct 19.6 L - ABG ABG results: PT/INR, D-dimer PT 13.4 Seconds (9.4-12.1) H 12/24/18 01:58 - Impressions Impressions Lumbar Spine MRI 12/24/18 04:06 IMPRESSION: Motion degraded study. Multilevel degenerative changes of the lumbar spine. There is moderate spinal canal stenosis at L4-L5. There is mild spinal canal stenosis at T11-T12, L1-L2, and L3-L4. Mild multilevel neural foraminal narrowing. D/ : / 12/24/2018 10:58:11 Milton Ocasio MD / brittany Interpreting Provider: Milton Ocasio MD Consult Discharge Plan - Plan Referrals: Demetra Ellison, SONG WRITER [Primary Care Provider] -
[2018-12-26] MEDS ORDERED: Lidocaine -MPF 2% 2 ML VIAL ONE ×2 (12:33)
[2018-12-26] MEDS ORDERED: *HR* Propofol 200 MG/20 ML VIAL IVP ONE (12:33)
[2018-12-26] MEDS ORDERED: Ondansetron 4 MG/2 ML VIAL ONE (12:36)
[2018-12-26] MEDS: Acetaminophen 325 MG TABLET PO PRN (12:42)
--- NOTE | 2018-12-26 13:43 | Anesthesia Evaluation PreOp ---
<PatrickKarla Johnson - Last Filed: 12/26/18 13:56> Date of Encounter: 12/26/18 Time of Encounter: 13:40 - Past History Planned Operation: EGD Cardiac History: HTN, Hyperlipidemia, Arrhythmia (A-FIB), Other (CAD ECHO 12/24/2018 EF60-65% MILD MS, NO PULM HTN MILD DIASTOLIC DYSFUNCTION) Pulmonary History: Former smoker, Smoker, COPD DOUBLE CUT SAWYER History: Denies Any Significant HX Other Medical History: Renal (Renal (ESRD) ON DIALYSIS MWF -RECEIVED DIALYSIS TODAY ANEMIA RECEIVED 2 UNITS PRBCS TODAY), Thyroid, GERD, Other (ANXIETY/DEPRESSION) Anesthesia History: No Prior Anesthetic Complications : No Alcohol Use: none Drug use: none Medications and Allergies Zolpidem [Ambien] 10 mg PO HS PRN 03/20/16 [History] Esomeprazole Magnesium [Nexium] 40 mg PO BID 05/20/18 [History] Fluticasone Propionate Nasal [Flonase] 1 spray NS DAILY PRN 05/20/18 [History] Sertraline [Zoloft] 100 mg PO DAILY 05/20/18 [History] Cetirizine HCl [All Day Allergy] 10 mg PO DAILY 06/10/18 [History] Albuterol Neb [Proventil Neb] 2.5 mg IH Q8H PRN 09/25/18 [History] Albuterol Sulfate [Ventolin Hfa] 2 puff IH Q4H PRN 09/25/18 [History] Budesonide/Formoterol 160/4.5 [Symbicort 160/4.5] 2 puff IH BIDR 09/25/18 [History] Magnesium Oxide 400 mg PO MOTUWE 09/25/18 [History] Metoprolol [Lopressor] 25 mg PO BID 09/25/18 [History] Montelukast [Singulair] 10 mg PO QPM tablet 09/29/18 [Rx] Renal Vitamin [Renal Caps Softgel] 1 cap PO 3XW capsule 09/29/18 [Rx] Cholecalciferol (Vitamin D3) [Vitamin D3] 10,000 unit PO MO 10/13/18 [History] LORazepam [Ativan] 0.5 mg PO BID PRN 10/13/18 [History] cloNIDine HCl [CloNIDine HCl] 0.1 mg PO ONCE PRN MDD 0.2 mg 12/23/18 [History] Calcium Acetate [Phos-LO] 2,668 mg PO TIDWM 12/24/18 [History] Ondansetron HCl [Zofran] 4 mg PO Q8H PRN 12/24/18 [History] Allergy/AdvReac Type Severity Reaction Status Date / Time cephalexin [From Keflex] Allergy Hives, ITCH Verified 12/24/18 13:17 - Meds/Allergy Pre-op Review Medications Reviewed: Yes Allergies Reviewed: Yes Beta Blockers on Current Med List: Yes Anesthesia Results - Labs 12/26/18 04:12 12/26/18 04:12 - Imaging EKG: report reviewed, image reviewed (Sinus rhythm with PACs Lateral ST-T changes, consider ischemia Prolonged QT interval Electronically Signed On 12-26-2018) Anesthesia Exam Weight: 92KG NPO (# of Hours): >8HRS Pain Scale: 0 Pain Scale Used: Numeric (1 - 10) - HEENT Pupil (Motor): Pupils equal Mallampati: II Teeth: Poor dentition Oral Opening: Greater than 3 - DOUBLE CUT SAWYER LOC: Oriented DOUBLE CUT SAWYER Motor: Normal RUE, Normal LUE, Normal RLE, Normal LLE, Normal Face DOUBLE CUT SAWYER Sensory: Normal: RUE, LUE, RLE, LLE, Face - Cardiac Rhythm: Regular Murmur: None - Pulmonary Breath Sounds: bilateral Clear Respiratory Effort: Symmetrical Anesthesia Assess/Plan ASA Score: 3 Level of consciousness: Cooperative Anesthetic Plan: MAC Monitoring Plan: Standard Monitors Recovery Plan: Other <Surekha Francis - Last Filed: 12/27/18 13:13> Date of Encounter: 12/27/18 Anesthesia Results - Labs 12/27/18 03:43 12/27/18 03:43
[2018-12-26] MEDS ORDERED: SODIUM CHLORIDE/NAHCO3/KCL/PEG 4,000 ML SOLN.RECON PO ONE (17:00)
--- NOTE | 2018-12-26 17:24 | Oncology Inp Consult Note ---
Date of Encounter: 12/26/18 Time of Encounter: 17:24 Assessment and Plan (1) Gram-positive bacteremia Status: Acute Assessment and plan: She is receiving IV vancomycin. Blood cultures grew 2 out of 2 staph lugdunensis. Not sure if it is a contaminant or not (2) Pancytopenia Status: Acute Assessment and plan: Progressive macrocytic anemia. No major evidence of cirrhosis. No evidence of hemolysis. B12 folate normal. Ferritin level is high indicating anemia of chronic disease. She does have history of melena and GI bleed could be playing a role. Peripheral smear pathology review no blast. Thrombocytopenia could be secondary to vancomycin. But given macrocytosis she may have underlying bone marrow involvement/MDS. I discussed bone marrow biopsy with patient. We will make a decision on it in the near future/as an outpatient. Stopping vancomycin should improve platelets - Data of Consult Patient: new to practice Requesting Physician: Umm Medina MD Primary Care Provider: Demetra Ellison, - Consult Narrative Reason for consult: Pancytopenia, macrocytic anemia History of present illness: Ms. Taylor is a 53 year old female with past medical history of end-stage renal disease, arterial fibrillation anticoagulated due to multiple episodes of GI bleeding presented to the ED for fever and chills. Patient has had a kidney transplant that lasted for almost a month with rejection and has been on aron lysis for almost 20 years. The consult is for progressive macrocytic anemia. Hemoglobin dropped from 10 range on September 2018 to 7.6 yesterday and 6.4 today. MCV 105. She has not had any transfusion recently till today. Her hemoglobin did drop to 5.7 on 05/19/2018 but recovered after that She also has progressive thrombocytopenia platelet count 125 on admission currently 79,000. Neutrophil count 2800 Ferritin more than 1500 with high iron saturation. B12 folate and TSH unremarkable. LDH normal and Joelle test 1+ hemolysis. She has history of melena and positive Hemoccult stool on 12/24/2018. EGD/small bowel enteroscopy 12/26/2018 showed Benito a reflux esophagitis. Erythematous mucosa gastric fundus and body. Normal duodenum and no specimen collected. According to GI she had extensive workup in the past including EGD colonoscopy capsule endoscopy with negative results She also had CT angiogram chest 12/24/2018 negative for PE in CT abdomen and pelvis no evidence of any acute bleed She is thought to be septic on admission. Blood cultures grew gram-positive cocci 2 out of 2 (Staphylococcus lugdunensis) on 12/23/2089. currently receiving IV vancomycin. Repeat blood cultures from 12/26/2018 pending Past Med Surg Social Fam HX - Past Medical History Medical history: atrial fibrillation, coronary artery disease, dialysis, GI bleed, hyperlipidemia, hypertension, peripheral artery disease, renal disease, SVT, thyroid disease, other Additional medical history: HD fistula TYLER, dialysis MWF Psychiatric history: anxiety, depression, panic disorder - Past Surgical History Surgical History: cholecystectomy, hip replacement, orthopedic, other, thyroidectomy, transplant Additional surgical history: R kidney transplant, dialysis fistula removal and graft to LUE, cardiac ablation - Social History Smoking Status: Former smoker Smokeless Tobacco Status: No Alcohol use: none Drug use: none - Family History Mother Living Status: Hx Family Endocrine Disorder: Yes (Type 2 DM) Father Living Status: Hx Family Cardiac Disorders: Yes (HTN) Hx Family Respiratory Disorders: Yes (COPD) Hx Family Cancer: Yes (Colon ca) Hx Family GI Disorders: Yes (colon cancer) Hx Family Endocrine Disorder: Yes (DM Type 2) Medications and Allergies Zolpidem [Ambien] 10 mg PO HS PRN 03/20/16 [History] Esomeprazole Magnesium [Nexium] 40 mg PO BID 05/20/18 [History] Fluticasone Propionate Nasal [Flonase] 1 spray NS DAILY PRN 05/20/18 [History] Sertraline [Zoloft] 100 mg PO DAILY 05/20/18 [History] Cetirizine HCl [All Day Allergy] 10 mg PO DAILY 06/10/18 [History] Albuterol Neb [Proventil Neb] 2.5 mg IH Q8H PRN 09/25/18 [History] Albuterol Sulfate [Ventolin Hfa] 2 puff IH Q4H PRN 09/25/18 [History] Budesonide/Formoterol 160/4.5 [Symbicort 160/4.5] 2 puff IH BIDR 09/25/18 [History] Magnesium Oxide 400 mg PO MOTUWE 09/25/18 [History] Metoprolol [Lopressor] 25 mg PO BID 09/25/18 [History] Montelukast [Singulair] 10 mg PO QPM tablet 09/29/18 [Rx] Renal Vitamin [Renal Caps Softgel] 1 cap PO 3XW capsule 09/29/18 [Rx] Cholecalciferol (Vitamin D3) [Vitamin D3] 10,000 unit PO MO 10/13/18 [History] LORazepam [Ativan] 0.5 mg PO BID PRN 10/13/18 [History] cloNIDine HCl [CloNIDine HCl] 0.1 mg PO ONCE PRN MDD 0.2 mg 12/23/18 [History] Calcium Acetate [Phos-LO] 2,668 mg PO TIDWM 12/24/18 [History] Ondansetron HCl [Zofran] 4 mg PO Q8H PRN 12/24/18 [History] Allergy/AdvReac Type Severity Reaction Status Date / Time cephalexin [From Keflex] Allergy Hives, ITCH Verified 12/24/18 13:17 All systems: reviewed and no additional remarkable complaints except as stated Review of systems: 12 point review of systems obtained. All negative except Fever on admission is resolved. Appetite is okay. Energy level is good. Activity level is good. Denied headache. No nausea vomiting diarrhea Oncology - Exam - Constitutional Exam: GENERAL: Alert and oriented, well appearing. Mental Status: Affect appropriate for circumstances HEENT: Sclerae anicteric. No mucositis or thrush. No other oral or pharyngeal lesions or erythema. Skin: No rashes or petechiae. No evidence of skin malignancy Lymph nodes: No cervical, supraclavicular, axillary, or inguinal adenopathy. Lungs: Clear to auscultation and percussion bilaterally. Cardiovascular: Regular rate and rhythm. No gallops, murmurs, or rubs. Abdomen: Soft, nontender; no organomegaly or masses palpable. Extremities: No edema. No calf swelling or tenderness. No joint deformity. Neurologic: Alert, cranial nerves II-XII intact; normal gait; no focal weakness or sensory abnormalities. Consult Discharge Plan - Plan Referrals: Demetra Ellison CNP [Primary Care Provider] - Inpatient Charges Provider: Dr. Asa Carmen Consult - Inpatient: [id number]
[2018-12-26] MEDS: Ondansetron ODT 4 MG TAB.RAPDIS SL PRN (17:27)
--- NOTE | 2018-12-26 17:43 | Vascular/Endovasc Consult Note ---
Date of Encounter: 12/26/18 Time of Encounter: 17:36 Assessment and Plan (1) Gram-positive bacteremia Current Visit: Yes Status: Acute Patient has a Staphylococcus species growing from a blood culture from December 23. Follow-up cultures are pending at this time. The patient is receiving antibiotics. Patient has multiple prosthetic devices in her body. The concern is the left upper arm AV shunt which has a multi-month old wound with some intermittent drainage. It is my suspicion that there is an indolent infection in the AV shunt but this is not an immediate concern. I discussed with the patient potential treatment options. She is reluctant to undergo surgery at this time. I asked her to consider her options as well as returning to see her primary surgeon at [facility]. (2) Anemia Current Visit: No Status: Chronic Patient has severe anemia. This is undergoing further evaluation. She has further GI workup pending. She did receive blood transfusion during this hospitalization. Qualifiers: Anemia type: due to chronic kidney disease Chronic kidney disease stage: on chronic dialysis Qualified Code(s): N18.6 - End stage renal disease; D63.1 - Anemia in chronic kidney disease; Z99.2 - Dependence on renal dialysis (3) ESRD on dialysis Current Visit: No Status: Chronic The patient has been receiving dialysis therapy for approximately 20 years. She has received peritoneal dialysis any years ago prior to her failed kidney transplant. She is now been on hemodialysis. She has had recurrent problems with the left upper arm AV shunt. It appears that there is an indolent infection in this area now as well due to the drainage. I discussed treatment options with the patient. She is not a candidate for surgery with her level hemoglobin. We also discussed her returning to see her primary surgeon in [place]. - History of Present Illness Consult date: 12/26/18 Consult reason: Left upper extremity AV shunt Chief complaint: Abnormal blood cultures History of present illness: Ms. Taylor is a 53 year old female Who is admitted late last week because of positive blood cultures taken from the dialysis unit at [facility]. A Staphylococcus species has been identified on the cultures from December 23. Follow-up cultures are pending at the time of this dictation. The patient's history is extremely complicated. 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 She had a left forearm AV shunt created in the . She went on to have a kidney transplantation from her at [facility] in 1999. This kidney had a very short time of functioning and she went on to require hemodialysis. Prior to her kidney transplant she was receiving peritoneal dialysis. A few years later there was a problem with her left forearm AV shunt which may have been infection and the AV shunt was surgically removed. At [facility] in 2005 she had a left upper arm AV shunt created by Dr. Troncoso. She has had follow-up and manipulation of the upper arm AV shunt including stent placement by Dr. Salamanca at [facility]. She had a recent shuntogram performed in May here by interventional radiology because of high venous resistance. That shuntogram showed no stenosis of the shunt or runoff vessels. The patient states that beginning 6-8 months ago she developed a scab with poor healing in the midportion of her left upper arm AV shunt. She has had occasional thin watery drainage from this area. She denies any pus from this region. She feels over time the serious been slowly increasing in size. When the scab is intact there is no drainage but when the scab is dislodged and then she experiences the fluid which drains under her clothing. She does not remember any specific treatment rendered to this area or outpatient antibiotics for this process. She denies any fevers or chills. She denies any pain or swelling in the left upper extremity. She states that the right upper extremity has been evaluat ed by venous mapping studies and was found to have inadequate veins for creation of a vascular access device in that extremity. Complicating her clinical situation is recurrent anemia. She has had rather dramatic anemia demonstrated during this hospitalization with a hemoglobin as low as 6.4. There is been no obvious etiology for the anemia identified. She was transfused earlier this admission. Past Med Surg Social Fam HX - Past Medical History Medical history: atrial fibrillation, coronary artery disease, dialysis, GI bleed, hyperlipidemia, hypertension, peripheral artery disease, renal disease, SVT, thyroid disease, other Additional medical history: HD fistula TYLER, dialysis MWF Psychiatric history: anxiety, depression, panic disorder - Past Surgical History Surgical History: cholecystectomy, hip replacement, orthopedic, other, thyr oidectomy, transplant Additional surgical history: R kidney transplant, dialysis fistula removal and graft to LUE, cardiac ablation - Social History Smoking Status: Former smoker Smokeless Tobacco Status: No Alcohol use: none Drug use: none - Family History Mother Living Status: Hx Family Endocrine Disorder: Yes (Type 2 DM) Father Living Status: Hx Family Cardiac Disorders: Yes (HTN) Hx Family Respiratory Disorders: Yes (COPD) Hx Family Cancer: Yes (Colon ca) Hx Family GI Disorders: Yes (colon cancer) Hx Family Endocrine Disorder: Yes (DM Type 2) Medications and Allergies Zolpidem [Ambien] 10 mg PO HS PRN 03/20/16 [History] Esomeprazole Magnesium [Nexium] 40 mg PO BID 05/20/18 [History] Fluticasone Propionate Nasal [Flonase] 1 spray NS DAILY PRN 05/20/18 [History] Sertraline [Zoloft] 100 mg PO DAILY 05/20/18 [History] Cetirizine HCl [All Day Allergy] 10 mg PO DAILY 06/10/18 [History] Albuterol Neb [Proventil Neb] 2.5 mg IH Q8H PRN 09/25/18 [History] Albuterol Sulfate [Ventolin Hfa] 2 puff IH Q4H PRN 09/25/18 [History] Budesonide/Formoterol 160/4.5 [Symbicort 160/4.5] 2 puff IH BIDR 09/25/18 [History] Magnesium Oxide 400 mg PO MOTUWE 09/25/18 [History] Metoprolol [Lopressor] 25 mg PO BID 09/25/18 [History] Montelukast [Singulair] 10 mg PO QPM tablet 09/29/18 [Rx] Renal Vitamin [Renal Caps Softgel] 1 cap PO 3XW capsule 09/29/18 [Rx] Cholecalciferol (Vitamin D3) [Vitamin D3] 10,000 unit PO MO 10/13/18 [History] LORazepam [Ativan] 0.5 mg PO BID PRN 10/13/18 [History] cloNIDine HCl [CloNIDine HCl] 0.1 mg PO ONCE PRN MDD 0.2 mg 12/23/18 [History] Calcium Acetate [Phos-LO] 2,668 mg PO TIDWM 12/24/18 [History] Ondansetron HCl [Zofran] 4 mg PO Q8H PRN 12/24/18 [History] Allergy/AdvReac Type Severity Reaction Status Date / Time cephalexin [From Keflex] Allergy Hives, ITCH Verified 12/24/18 13:17 All Systems Review: The remainder of the systems were reviewed and are negative Exam Vital Signs, Last 4 Hours Temp Pulse Resp BP Pulse Ox 12/26/18 15:21 98.2 F 73 19 93/53 97 12/26/18 13:53 98.5 F 73 18 182/84 99 General: Present: Conversant, No Apparent Distress, Well developed, Well nourished HEENT: Present: Atraumatic, Normocephaly, Trachea midline Neck: Absent: JVD, Left Carotid bruit, Right Carotid bruit, Midline deformity, Tracheal deviation Cardiac: Present: Reg Rate and Rhythm, Normal S1 and S2, No Murmur Lungs: Present: Normal Breath Sounds, No Wheeze, Rales, Rhonchi Neuro: Present: Alert and responsive, No focal deficits noted, Cranial nerves grossly intact Vascular: Present: Pulse, diminished (Diminished left wrist pulses.), Pulse, normal (Normal right upper extremity pulses and normal left axillary and brachial pulse.), Color/Temperature (Patient's hand and fingers are warm and pink and symmetric in color and temperature.), Other (The patient has multiple surgical scars of the left upper extremity. Patient has a loud bruit over the left upper arm AV shunt. Patient has a palpable thrill at the left axillary region.). Absent: Cyanosis, Edema Skin: Present: Other (Patient has a eschar measuring approximately 0.4 x 0.5 cm on the midportion of her left upper arm AV shunt. There is a pinkish discoloration of the surrounding skin but there is no erythema. There is no drainage. There are no blebs. There is no edema to this region. There is no sponginess to the surrounding tissue.) Consult Discharge Plan - Plan Referrals: Demetra Ellison CNP [Primary Care Provider] -
[2018-12-26] MEDS ORDERED: Ondansetron 4 MG/2 ML VIAL IVP ONE (21:32)
[2018-12-26 23:57] LABS: Basophils % 0.2 %; Eosinophils # 0.1 K/mcL (0.0-0.6); Eosinophils % 1.7 %; Hematocrit 27.1 % (35.3-44.9); Hemoglobin 8.8 g/dL (11.5-15.4); Immature Granulocytes % 1.4 % (0-4); Lymphocytes # 0.6 K/mcL (0.6-4.6); Lymphocytes % 9.3 %; Mean Corpuscular HGB Conc 32.5 g/dL (31.6-35.5); Mean Corpuscular Hemoglobin 32.7 pg (28.0-33.3); Mean Corpuscular Volume 100.7 fL (83.0-100.0); Mean Platelet Volume 12.4 fL (9.4-12.4); Monocytes # 0.4 K/mcL (0.0-1.3); Monocytes % 6.3 %; Neutrophils # 5.3 K/mcL (1.6-8.9); Platelet Count 132 K/mcL (140-400); Red Blood Count 2.69 M/mcL (3.82-4.97); Red Cell Distribution Width 18.2 % (11.5-14.5); Segmented Neutrophils % 81.1 %; White Blood Count 6.5 K/mcL (4.3-11.1)
[2018-12-27 04:24] LABS: Hematocrit 25.4 % (35.3-44.9); Hemoglobin 8.5 g/dL (11.5-15.4); Mean Corpuscular HGB Conc 33.5 g/dL (31.6-35.5); Mean Corpuscular Hemoglobin 33.1 pg (28.0-33.3); Mean Corpuscular Volume 98.8 fL (83.0-100.0); Platelet Count 107 K/mcL (140-400); Red Blood Count 2.57 M/mcL (3.82-4.97); Red Cell Distribution Width 18.2 % (11.5-14.5); White Blood Count 6.1 K/mcL (4.3-11.1)
[2018-12-27 04:51] LABS: Calcium 8.7 mg/dL (8.6-10.3); Potassium 4.4 mEq/L (3.5-5.1)
[2018-12-27] MEDS: Budesonide/Formoterol 160/4.5 1 PUFF INH IH SCH ×2 (08:09→20:20)
--- NOTE | 2018-12-27 09:30 | Nephrology Progress Note ---
Date of Encounter: 12/27/18 Time of Encounter: 09:28 - Assessment and Plan (1) ESRD on dialysis Current Visit: No Status: Chronic Current regimen is MWF in [place] with Dr. Randall. HD completed yesterday. Renal diet Renal vitamins Strict I/O Avoid nephrotoxins and renal dose all medications. Will order additional UF or HD as needed. Dr. Coates's note reviewed, recommends that Fistula be removed. It could be removed by primary surgeon Dr. Molina in [place], which is what patient would like. In the meantime could continue to use fistula until a decision is made where and when to remove it. Patient would need Tunneled line placed to continue current HD regimen and a new access could be set up outpatient. (2) Anemia Current Visit: No Status: Chronic Hemoglobin is 8.5, s/p 2 units PRBC's. Colonoscopy scheduled for later today. A BMB could be warranted given macrocytosis she may have underlying bone marrow involvement/MDS. Appreciate oncology recommendations. Qualifiers: Qualified Code(s): N18.6 - End stage renal disease; D63.1 - Anemia in chronic kidney disease; Z99.2 - Dependence on renal dialysis (3) Hypotension Current Visit: Yes Status: Acute Stable at bedside. Qualifiers: Qualified Code(s): I95.9 - Hypotension, unspecified (4) AV fistula infection Current Visit: Yes Status: Acute See above. Qualifiers: Qualified Code(s): T82.7XXA - Infection and inflammatory reaction due to other cardiac and vascular devices, implants and grafts, initial encounter (5) Hyponatremia Current Visit: Yes Status: Acute Na 128. No IVF given, however she was given large amount of bowel prep for colonoscopy. Informed RN team to limit to 1.2 liters a day for the next 24 hours. Subjective Principal diagnosis: CP, Trop Interval history: Patient seen and examined is doing well. States she has a colonoscopy later today. Denies chest pain or shortness of breath. Denies nausea, vomiting. Admits to diarrhea with prep for procedure. Objective - Vital Signs Vital signs: Vital Signs Temp Pulse Resp BP Pulse Ox 12/27/18 08:11 16 100 12/27/18 06:44 97.9 F 71 16 124/81 100 12/27/18 04:05 97.8 F 73 15 124/78 100 12/26/18 23:23 98.2 F 73 13 119/64 99 12/26/18 20:45 100 12/26/18 20:33 98.3 F 80 15 135/82 100 12/26/18 20:10 16 99 12/26/18 15:21 98.2 F 73 19 93/53 97 12/26/18 13:53 98.5 F 73 18 182/84 99 12/26/18 13:30 97.9 F 18 132/65 12/26/18 13:05 128/70 12/26/18 12:50 136/63 12/26/18 12:35 130/65 12/26/18 12:20 122/57 12/26/18 12:05 99/62 12/26/18 11:50 102/57 12/26/18 11:35 124/57 12/26/18 11:34 98.1 F 76 18 107/50 12/26/18 11:20 122/61 12/26/18 11:17 97.8 F 76 20 111/61 12/26/18 11:05 111/56 12/26/18 11:02 98.1 F 72 20 113/73 98 12/26/18 10:50 98.0 F 65 18 131/57 12/26/18 10:35 113/54 12/26/18 10:20 100/56 12/26/18 10:05 105/50 12/26/18 10:00 97.6 F 62 18 113/62 12/26/18 09:50 103/88 12/26/18 09:45 97.3 F L 75 18 103/88 96 12/26/18 09:35 98.1 F 18 106/50 Intake and Output 12/26/18 12/27/18 12/27/18 23:59 07:59 15:59 Other: Meal pt completed bowel prep mix. Stool Size Moderate Stool Consistency liquid liquid Stool Color Bright Red Blood Blood Tinged # Bowel Movements 2 1 Blood Glucose* 102 - General Appearance General appearance: Present: well-developed, well-nourished EENT: Present: ATNC, hearing intact, vision intact Neck: Present: supple Respiratory: Present: clear Cardiology: Present: no edema, normal S1, normal S2 Dialysis Vascular Access: Arteriovenous Fistula thrill: Yes bruit: Yes Gastrointestinal: Present: normoactive bowel sounds, no tenderness, no guarding Integumentary: Present: no rash, warm and dry Neurologic: Present: alert and oriented x3 Musculoskeletal: Present: no deformities, no erythema Psychiatric: Present: mood/affect appropriate, cooperative - Lab 12/27/18 03:43 12/27/18 03:43 Most recent lab results 12/27/18 03:43 Calcium 8.7 Consult Discharge Plan - Plan Referrals: Demetra Ellison, [employer] [Primary Care Provider] -
[2018-12-27] MEDS: Loratadine 10 MG TABLET PO SCH (09:35)
[2018-12-27] MEDS: Cholecalciferol (D-3) 1,000 UNIT (25MCG) TABLET PO SCH (09:35)
[2018-12-27] MEDS: Calcium Acetate 667 MG CAPSULE PO SCH ×3 (09:36→17:43)
[2018-12-27] MEDS: Magnesium Oxide 400 MG TABLET PO SCH (09:43)
[2018-12-27] MEDS ORDERED: Albuterol 2.5 MG/3 ML NEBULIZER IH PRN (10:07)
--- NOTE | 2018-12-27 11:31 | Internal Med Progress Note ---
Hospitalist Progress Note - Encounter Date of Encounter: 12/27/18 Time of Encounter: 07:50 - Subjective Interval History: No acute events overnight. Patient denies fever, chills, nausea and vomiting. She had a bowel prep for colooscopy today and states that her stools were dark initially but she also noticed some bright red blood later on. - Exam Vitals: Temp Pulse Resp BP Pulse Ox 36.8 C 72 14 124/74 97 12/27/18 10:37 12/27/18 10:37 12/27/18 10:37 12/27/18 10:37 12/27/18 10:37 Exam: GENERAL: Not in distress. Alert and Oriented HEENT: EOMI, PERRLA MOUTH: Moist oral mucosa. NECK:No JVD, No lymph nodes. CHEST AND LUNGS: Normal breath sounds, no wheezes or crackles HEART: S1 and S2 normal, no murmurs ABDOMEN: Soft, nontender, obese. SKIN: Normal color, no rahses, no lesions EXTREMITIES: Left brachiocephalic fistula site with a smal point of induration a t distal edge with tenderness. NEUROLOGICAL: Normal cognition, normal motor and sensory exam. - Assessment and Plan (1) Gram-positive bacteremia Current Visit: Yes Status: Acute Assessment and Plan: 2 out of 2 blood culture samples positive for Staph lugdunensis Source likely AV fistula TTE did not show any vegetations Seen by vascular who note that patient likely has an indolent infection in fistula but she is reluctant to undergo surgery at this time. Her low Hb status and GI bleeding disqualifies her for analysis surgical candidate. The recommended fistula can be removed by patient primary surgeon Dr. Molina in [facility] and nephrology following (2) GI bleed Current Visit: No Status: Resolved Assessment and Plan: She was transfused with 2 units of blood yesterday. She had a bowel prep for colonoscopy today. States her stools were dark and she later noticed some bright red blood. Her hemoglobin is currently at 8.5 g/dL. She had an EGD yesterday which showed reflux esophagitis without bleeding Scheduled for colonoscopy today. (3) Thrombocytopenia Current Visit: Yes Status: Acute Assessment and Plan: Patient seen by hematology Vancomycin suspected to be the cause of low platelets PLT currently 107 Patient also has high MCV anemia and currently has GI bleed Hematology spoke with patient to consider future need for bone marrow biopsy if macrocytic anemia persists. (4) Obese Current Visit: No Status: Acute Assessment and Plan: Patient counseled on weight loss options. (5) Atrial fibrillation Current Visit: No Status: Chronic Assessment and Plan: Currently rate controlled. Patient not anticoagulated due to history of severe GI bleed. Continue beta blockers (6) DVT prophylaxis Current Visit: No Status: Acute Assessment and Plan: EPCDs - Time Spent with Patient Total time spent is greater than 50% in coordination of care (as documented) at patient's floor/unit and/or counseling patient: Internal Medicine: Result - Labs CBC & Chem 7: 12/27/18 03:43 12/27/18 03:43 Labs: Short CBC 12/26/18 12/27/18 Range/Units 23:16 03:43 WBC 6.5 6.1 (4.3-11.1) K/mcL Hgb 8.8 L D 8.5 L (11.5-15.4) g/dL Hct 27.1 L 25.4 L (35.3-44.9) % Plt Count 132 L D 107 L (140-400) K/mcL Neutrophils # 5.3 (1.6-8.9) K/mcL BMP 12/27/18 03:43 Sodium 128 L Potassium 4.4 Chloride 88 L Carbon Dioxide 25 BUN 35 H Creatinine 6.12 H Glucose 91 Calcium 8.7 - ABG Interpretation ABG results: PT/INR, D-dimer PT 13.4 Seconds (9.4-12.1) H 12/24/18 01:58 - Impressions Impressions Upper Extremity CT 12/26/18 13:07 IMPRESSION: 1. Left upper extremity arteriovenous fistula with mild adjacent fat stranding that may represent bland edema or cellulitis. No drainable fluid collection. 2. No acute osseous abnormality. D/ / Artur Le MD / Artur Le MD Interpreting Provider: Artur Le MD Consult Discharge Plan - Plan Referrals: Demetra Ellison, [employer] [Primary Care Provider] - _ (2) GI bleed Qualifiers: GI bleed type/associated pathology: melena Qualified Code(s): K92.1 - Melena (4) Obese Qualifiers: Obesity type: due to excess calories Body mass index: BMI 32.0-32.9 (5) Atrial fibrillation Qualifiers: Atrial fibrillation type: paroxysmal Qualified Code(s): I48.0 - Paroxysmal atrial fibrillation
[2018-12-27] MEDS ORDERED: Propofol 500 MG/50 ML INFUS..BTL ONE (12:12)
[2018-12-27] MEDS ORDERED: Lidocaine -MPF 2% 2 ML VIAL ONE (12:12)
[2018-12-27] MEDS ORDERED: Dexamethasone 4 MG/ML VIAL ONE (12:20)
[2018-12-27] MEDS ORDERED: Ondansetron 4 MG/2 ML VIAL ONE (12:20)
--- NOTE | 2018-12-27 12:45 | Infectious Disease Progress No ---
ID Progress Note Date of Encounter: 12/27/18 Time of Encounter: 12:40 - Subjective Subjective: Patient seen and examined. No acute events noted overnight. Patient scheduled for colonoscopy later today. Denies fevers, chills, or rigors. Denies chest pain, shortness of breath, or cough. Denies vomiting or constipation. Reports some nausea and diarrhea secondary to colonoscopy prep. Denies abdominal pain or urinary complaints. Denies oral thrush or skin rashes. States if she has to have surgery on her fistula, she would like Dr. Camacho to perform it since he is the one who placed her fistula. - Objective CBC & Chem 7: 12/28/18 04:23 12/28/18 04:23 - Exam Vitals: Temp Pulse Resp BP Pulse Ox 98.3 F 72 14 124/74 97 12/27/18 10:37 12/27/18 10:37 12/27/18 10:37 12/27/18 10:37 12/27/18 10:37 Exam: Head: Atraumatic, normal inspection, normocephalic. Eye: EOMI, PERRLA, no scleral icterus noted. No subconjunctival hemorrhage noted. ENT: Mucous membranes moist. No odontogenic infection noted. Neck: Normal inspection, no meningismus. Respiratory: Clear to auscultation. No rales, respiratory distress, rhonchi, or wheezes noted. Cardiovascular: Regular rate and irregular rhythm, S1 and S2 audible. No murmurs, rubs, or gallops. GI: Soft, obese, normal bowel sounds. Nontender. Extremities:No joint swelling, pedal edema, or tenderness noted. AV fistula noted to the left upper extremity, +/+. Scabbed lesion noted to the middle of th e fistula without surrounding erythema, fluctuance, or drainage. Back: No vertebral tenderness noted. Neurological: Alert, oriented 3, no focal deficits. Psychiatric: normal affect, normal mood. Skin: Dry, intact, warm. Normal color. No rashes. No endocarditis stigmata noted. - Assessment and Plan (1) Sepsis Current Visit: Yes Status: Acute The patient had 2 sepsis criteria on admission. Likely secondary to bacteremia. Improved. Afebrile. Tachycardia resolved. Blood cultures from 12/23/18 are +2 out of 2 sets for S. lugdenensis. Repeat blood cultures drawn 12/26/18 are pending x 2 sets. Qualifiers: Sepsis type: sepsis due to unspecified organism Sepsis acute organ dysfunction status: without acute organ dysfunction Qualified Code(s): A41.9 - Sepsis, unspecified organism SNOMED Code(s): 12600208 (2) Gram-positive bacteremia Current Visit: Yes Status: Acute Causative organism: S. lugdunensis. Source: Unclear. AV fistula vs. other Blood cultures from 12/23/18 are +2 out of 2 sets for S. lugdenensis. Repeat blood cultures drawn 12/26/18 are pending x 2 sets. No endocarditis stigmata noted on exam. Currently on IV Vancomycin. SNOMED Code(s): 725465796725 (3) AV fistula infection Current Visit: Yes Status: Suspected CT LUE showed mild adjacent fat stranding consistent with bland edema vs. cellulitis. No fluid collection noted. Patient reports improvement in the lesion at the fistula site since being on IV antibiotics. Vascular surgery consulted. Appreciate recommendations. Qualifiers: Encounter type: initial encounter Qualified Code(s): T82.7XXA - Infection a nd inflammatory reaction due to other cardiac and vascular devices, implants and grafts, initial encounter SNOMED Code(s): 466370568 (4) Anemia due to blood loss, acute Current Visit: No Status: Acute FOBT positive. Push enteroscopy showed reflux esophagitis. Colonoscopy planned for later today. GI consulted and following. SNOMED Code(s): 896116512 (5) Elevated troponin Current Visit: No Status: Chronic Cardiology consulted. SNOMED Code(s): 448520332, 572065469, 321051391 (6) Atrial fibrillation Current Visit: No Status: Chronic Qualifiers: Atrial fibrillation type: paroxysmal Qualified Code(s): I48.0 - Paroxysmal atrial fibrillation SNOMED Code(s): 65468253 (7) COPD (chronic obstructive pulmonary disease) Current Visit: No Status: Resolved Qualifiers: COPD type: COPD with acute exacerbation Qualified Code(s): J44.1 - Chronic obstructive pulmonary disease with (acute) exacerbation SNOMED Code(s): 20261615 (8) Obese Current Visit: No Status: Acute Qualifiers: Obesity type: due to excess calories Body mass index: BMI 32.0-32.9 SNOMED Code(s): 176246998, 026081162 (9) HTN (hypertension) Current Visit: No Status: Chronic Qualifiers: Hypertension type: essential hypertension Qualified Code(s): I10 - Essential (primary) hypertension SNOMED Code(s): 02412736 (10) HLD (hyperlipidemia) Current Visit: No Status: Chronic Qualifiers: Hyperlipidemia type: unspecified Qualified Code(s): E78.5 - Hyperlipidemia, unspecified SNOMED Code(s): 63674676 (11) ESRD on dialysis Current Visit: No Status: Chronic Nephrology consulted and following. SNOMED Code(s): 979394663 - Recommendations Recommendations: Await repeat blood cultures to finalize. Okay to use fistula from our standpoint and refer to her vascular surgeon as an outpatient for possible revision. ESRD management per the nephrology team. GIB management per the GI team. Continue Vancomycin IV for now. Pharmacy to dose. Goal trough ~15. Duration of treatment depends on the clinical picture, but likely 2 weeks. Will see if we can set up her IV antibiotis to be done at HD so we don't have to put another IV line in the patient. Additionally, will plan on Vanc even though bacteria is methicillin susceptible to ease in dosing. Monitor labs and dose-adjust antibiotics. Consult Discharge Plan - Plan Referrals: Demetra Ellison CNP [Primary Care Provider] - - Attending Attestation I have personally performed a face to face evaluation on this patient. I have reviewed and agree with the care plan. History and Exam by me shows: Assessment and plan: 1.Bacteremia with Staphylococcus lugdunensis source likely cellulitis over the fistula 2. End-stage renal disease on hemodialysis Mentation: Discussed with Dr. Wasserman. Patient apparently has stents in her graft. Recommendation to follow-up with her vascular surgeon who placed the graft in the first place. Probably need surgical intervention. In the meantime we will continue vancomycin duration of treatment 4 weeks.
--- NOTE | 2018-12-27 18:08 | Vascular/[facility] Progress Note ---
Date of Encounter: 12/27/18 Time of Encounter: 18:06 - Assessment and plan (1) Gram-positive bacteremia Current Visit: Yes Status: Acute Patient has a Staphylococcus species growing from a blood culture from December 23. Follow-up cultures are pending at this time. The patient is receiving antibiotics. Patient has multiple prosthetic devices in her body. The concern is the left upper arm AV shunt which has a multi-month old wound with some intermittent drainage. It is my suspicion that there is an indolent infection in the AV shunt but this is not an immediate concern. I discussed with the patient potential treatment options. She is reluctant to undergo surgery at this time. I asked her to consider her options as well as returning to see her primary surgeon at [facility]. I discussed the patient's clinical situation with infectious disease Dr. Nice. Plan is for intravenous vancomycin therapy with dialysis treatments for at least 1 month. (2) Anemia Current Visit: No Status: Chronic Patient has severe anemia. This is undergoing further evaluation. She has further GI workup pending. She did receive blood transfusion during this hospitalization. Qualifiers: Anemia type: due to chronic kidney disease Chronic kidney disease stage: on chronic dialysis Qualified Code(s): N18.6 - End stage renal disease; D63.1 - Anemia in chronic kidney disease; Z99.2 - Dependence on renal dialysis (3) ESRD on dialysis Current Visit: No Status: Chronic The patient has been receiving dialysis therapy for approximately 20 years. She has received peritoneal dialysis any years ago prior to her failed kidney transplant. She is now been on hemodialysis. She has had recurrent problems with the left upper arm AV shunt. It appears that there is an indolent infection in this area now as well due to the drainage. I discussed treatment options with the patient. She is not a candidate for surgery with her level hemoglobin. We also discussed her returning to see her primary surgeon in [place]. - Subjective Interval history: Patient has no complaints. She underwent colonoscopy today. No new issues regarding left upper extremity. Vital Signs, Last 4 Hours Temp Pulse Resp BP Pulse Ox 12/27/18 16:16 97.9 F 76 16 99/65 100 - Physical Examination General: Present: Conversant, No Apparent Distress HEENT: Present: Atraumatic Vascular: Present: Other (Left upper extremity AV shunt remains patent. The area of scab or eschar in the midportion of the AV shunt is stable. Of note the patient did tell me that the shunt is bovine rather than PTFE.) Results 12/27/18 03:43 12/27/18 03:43 Lab Results, Last 24 hours 12/26/18 12/27/18 12/27/18 23:16 03:43 03:43 WBC 6.5 6.1 Hgb 8.8 L D 8.5 L Hct 27.1 L 25.4 L Plt Count 132 L D 107 L Sodium 128 L Potassium 4.4 Chloride 88 L Carbon Dioxide 25 BUN 35 H Creatinine 6.12 H Glucose 91 Calcium 8.7 Consult Discharge Plan - Plan Referrals: Demetra Ellison, [employer] [Primary Care Provider] -
[2018-12-28 04:52] LABS: Hemoglobin 7.6 g/dL (11.5-15.4); Mean Corpuscular Hemoglobin 32.8 pg (28.0-33.3); Mean Corpuscular Volume 99.1 fL (83.0-100.0); Mean Platelet Volume 12.1 fL (9.4-12.4); Platelet Count 124 K/mcL (140-400); Red Blood Count 2.32 M/mcL (3.82-4.97); Red Cell Distribution Width 17.6 % (11.5-14.5); White Blood Count 6.2 K/mcL (4.3-11.1)
[2018-12-28 04:59] LABS: Calcium 7.7 mg/dL (8.6-10.3); Potassium 4.6 mEq/L (3.5-5.1)
[2018-12-28] MEDS ORDERED: 0.9 % Sodium Chloride 250 ML IVC PRN (07:23)
[2018-12-28] MEDS: Budesonide/Formoterol 160/4.5 1 PUFF INH IH SCH (07:32)
[2018-12-28] MEDS: Renal Vitamin 1 CAP CAPSULE PO SCH (08:08)
[2018-12-28] MEDS: Cholecalciferol (D-3) 1,000 UNIT (25MCG) TABLET PO SCH (08:09)
[2018-12-28] MEDS: Loratadine 10 MG TABLET PO SCH (08:09)
--- NOTE | 2018-12-28 10:00 | Nephrology Progress Note ---
Date of Encounter: 12/28/18 Time of Encounter: 09:58 - Assessment and Plan (1) ESRD on dialysis Current Visit: No Status: Chronic Current regimen is MWF in [place] with Dr. Randall. HD in progress for today. ID would like 1 month of antibiotics with HD. Renal diet Renal vitamins Strict I/O Avoid nephrotoxins and renal dose all medications. Will order additional UF or HD as needed. Patient will have 1 month antibiotics and will see Dr. Molina [place] [facility] [place] for possible revision/excision of LUE fistula. (2) Anemia Current Visit: No Status: Chronic Hemoglobin is 7.6, s/p 2 units PRBC's. Colonoscopy normal per patient. A BMB could be warranted given macrocytosis she may have underlying bone marrow involvement/MDS. Appreciate oncology recommendations, per last note a BMB could be done outpatient. Qualifiers: Anemia type: due to chronic kidney disease Chronic kidney disease stage: on chronic dialysis Qualified Code(s): N18.6 - End stage renal disease; D63.1 - Anemia in chronic kidney disease; Z99.2 - Dependence on renal dialysis (3) Hypotension Current Visit: Yes Status: Acute Stable at bedside. Qualifiers: Hypotension type: unspecified hypotension type Qualified Code(s): I95.9 - Hypotension, unspecified (4) AV fistula infection Current Visit: Yes Status: Suspected See above. Qualifiers: Encounter type: initial encounter Qualified Code(s): T82.7XXA - Infection and inflammatory reaction due to other cardiac and vascular devices, implants and grafts, initial encounter (5) Hyponatremia Current Visit: Yes Status: Acute Na 129. Continue fluid restriction. Subjective Principal diagnosis: CP, Trop Interval history: Patient seen and examined is doing well. HD in progress. Denies chest pain or shortness of breath. Denies nausea, vomiting or diarrhea. Objective - Vital Signs Vital signs: Vital Signs Temp Pulse Resp BP Pulse Ox 12/28/18 08:55 123/72 12/28/18 08:40 133/74 12/28/18 08:25 97.9 F 18 116/68 12/28/18 07:33 18 100 12/28/18 06:45 97.7 F 94 15 134/62 99 12/28/18 03:24 97.7 F 80 16 135/71 100 12/27/18 23:03 97.7 F 70 16 112/62 99 12/27/18 20:20 16 98 12/27/18 18:29 97.8 F 74 16 129/75 98 12/27/18 16:16 97.9 F 76 16 99/65 100 12/27/18 13:30 98.3 F 72 14 137/63 98 12/27/18 10:37 98.3 F 72 14 124/74 97 Intake and Output 12/27/18 12/28/18 12/28/18 23:59 07:59 15:59 Intake Total 600 / 600 Balance 600 / 600 Intake: Oral 0 / 0 Intake, Rinseback and Flushes 600 / 600 Other: Weight 93 kg Blood Glucose* 125 Hemodialysis Net Fluid Removed 444 (mL) - General Appearance General appearance: Present: well-developed, well-nourished EENT: Present: ATNC, hearing intact, vision intact Neck: Present: supple Respiratory: Present: clear Cardiology: Present: no edema, normal S1, normal S2 Dialysis Vascular Access: Arteriovenous Fistula thrill: Yes bruit: Yes Gastrointestinal: Present: normoactive bowel sounds, no tenderness, no guarding Integumentary: Present: no rash, warm and dry Neurologic: Present: alert and oriented x3 Musculoskeletal: Present: no deformities, no erythema Psychiatric: Present: mood/affect appropriate, cooperative - Lab 12/28/18 04:23 12/28/18 04:23 Most recent lab results 12/28/18 04:23 Calcium 7.7 L Consult Discharge Plan - Plan Referrals: Demetra Ellison, [employer] CONSULTANT [Primary Care Provider] -
--- NOTE | 2018-12-28 10:01 | Infectious Disease Progress No ---
ID Progress Note Date of Encounter: 12/28/18 Time of Encounter: 09:00 - Subjective Subjective: Patient seen and examined in the HD unit. No acute events noted overnight. States she feels okay. Continues to complain of low back, right hip, and right shoulder pain. Denies fevers, chills, or rigors. Denies chest pain, shortness of breath, or cough. Denies vomiting or constipation. Reports some nausea and diarrhea secondary to colonoscopy prep. Denies abdominal pain or urinary com plaints. Denies oral thrush or skin rashes. - Objective CBC & Chem 7: 12/28/18 04:23 12/28/18 04:23 - Exam Vitals: Temp Pulse Resp BP Pulse Ox 97.9 F 94 18 123/72 100 12/28/18 08:25 12/28/18 06:45 12/28/18 08:25 12/28/18 08:55 12/28/18 07:33 Exam: Head: Atraumatic, normal inspection, normocephalic. Eye: EOMI, PERRLA, no scleral icterus noted. No subconjunctival hemorrhage noted. ENT: Mucous membranes moist. No odontogenic infection noted. Neck: Normal inspection, no meningismus. Respiratory: Clear to auscultation. No rales, respiratory distress, rhonchi, or wheezes noted. Cardiovascular: Regular rate and irregular rhythm, S1 and S2 audible. No murmu rs, rubs, or gallops. GI: Soft, obese, normal bowel sounds. Nontender. Extremities:No joint swelling, pedal edema, or tenderness noted. AV fistula noted to the left upper extremity currently accessed for HD. Back: No vertebral tenderness noted. Right lumbar paravertebral tenderness noted with tenderness to the right buttock. negative SLR bilaterally. Neurological: Alert, oriented 3, no focal deficits. Psychiatric: normal affect, normal mood. Skin: Dry, intact, warm. Normal color. No rashes. No endocarditis stigmata noted. - Assessment and Plan (1) Sepsis Status: Acute The patient had 2 sepsis criteria on admission. Likely secondary to bacteremia. Improved. Afebrile. Tachycardia resolved. Blood cultures from 12/23/18 are +2 out of 2 sets for S. lugdenensis. Repeat blood cultures drawn 12/26/18 are NGTD x 2 sets. Qualifiers: Sepsis type: sepsis due to unspecified organism Sepsis acute organ dysfunction status: without acute organ dysfunction Qualified Code(s): A41.9 - Sepsis, unspecified organism SNOMED Code(s): 35505967 (2) Gram-positive bacteremia Status: Acute Causative organism: S. lugdunensis. Source: Unclear. AV fistula vs. other. Complicated due to stents in the AV fistula and multiple prosthetic joints. Blood cultures from 12/23/18 are +2 out of 2 sets for S. lugdenensis. Repeat blood cultures drawn 12/26/18 are NGTD x 2 sets. No endocarditis stigmata noted on exam. TTE negative for vegetations. Currently on IV Vancomycin. SNOMED Code(s): 794957681778 (3) AV fistula infection Status: Suspected CT LUE showed mild adjacent fat stranding consistent with bland edema vs. cellulitis. No fluid collection noted. Patient reports improvement in the lesion at the fistula site since being on IV antibiotics. Apparently has stents in the fistula, which complicates things. Vascular surgery consulted. Appreciate recommendations. Recommend referral to Dr. Camacho after discharge to evaluate for revision of fistula. Qualifiers: Encounter type: initial encounter Qualified Code(s): T82.7XXA - Infection and inflammatory reaction due to other cardiac and vascular devices, implants and grafts, initial encounter SNOMED Code(s): 844757749 (4) Anemia due to blood loss, acute Status: Acute FOBT positive. Push enteroscopy showed reflux esophagitis. Colonoscopy negative. Planning video capsule endoscopy as an outpatient. GI consulted and following. SNOMED Code(s): 454751017 (5) Elevated troponin Status: Chronic Cardiology consulted. SNOMED Code(s): 693291079, 008371180, 315221778 (6) Atrial fibrillation Status: Chronic Qualifiers: Atrial fibrillation type: paroxysmal Qualified Code(s): I48.0 - Paroxysmal atrial fibrillation SNOMED Code(s): 61101368 (7) COPD (chronic obstructive pulmonary disease) Status: Resolved Qualifiers: COPD type: COPD with acute exacerbation Qualified Code(s): J44.1 - Chronic obstructive pulmonary disease with (acute) exacerbation SNOMED Code(s): 27898945 (8) Obese Status: Acute Qualifiers: Obesity type: due to excess calories Body mass index: BMI 32.0-32.9 Qualified Code(s): E66.09 - Other obesity due to excess calories; Z68.32 - Body mass index (BMI) 32.0-32.9, adult SNOMED Code(s): 366716037, 485202091 (9) HTN (hypertension) Status: Chronic Qualifiers: Hypertension type: essential hypertension Qualified Code(s): I10 - Essential (primary) hypertension SNOMED Code(s): 71003685 (10) HLD (hyperlipidemia) Status: Chronic Qualifiers: Hyperlipidemia type: unspecified Qualified Code(s): E78.5 - Hyperlipidemia, unspecified SNOMED Code(s): 04556688 (11) ESRD on dialysis Status: Chronic Nephrology consulted and following. SNOMED Code(s): 786130561 - Recommendations Recommendations: Await repeat blood cultures to finalize. Okay to use fistula from our standpoint and refer to her vascular surgeon as an outpatient for possible revision. ESRD management per the nephrology team. GIB management per the GI team. Continue Vancomycin IV for now. Pharmacy to dose. Goal trough ~15. Duration of treatment depends on the clinical picture, but likely 4 weeks. Will see if we can set up her IV antibiotis to be done at HD so we don't have to put another IV line in the patient. Additionally, will plan on Vanc even though bacteria is methicillin susceptible to ease in dosing. Monitor labs and dose-adjust antibiotics. Will need weekly CBC, BUN/Cr, and Vanc trough. Consult Discharge Plan - Plan Instructions: Anemia (DC) Referrals: Demetra Ellison CNP [Primary Care Provider] - 01/05/19 1:00 pm (Please follow up as schedule..) Prescriptions: Vancomycin HCl in 5 % Dextrose [Vancomycin 750 mg/250 ml-D5w] 750 mg IV Q48H 7 Days #4 plast..bag - Attending Attestation I have personally performed a face to face evaluation on this patient. I have reviewed and agree with the care plan. History and Exam by me shows: Assessment and plan: 1.Bacteremia with Staphylococcus lugdunensis source likely cellulitis over the fistula 2. End-stage renal disease on hemodialysis Mentation: Discussed with Dr. Wasserman. Patient apparently has stents in her graft. Recommendation to follow-up with her vascular surgeon who placed the graft in the first place. Probably need surgical intervention. In the meantime we will continue vancomycin duration of treatment 4 weeks.
--- NOTE | 2018-12-28 11:19 | Discharge Summary ---
Orders not resulted at time of discharge: Pending orders 12/26/18 09:36 Blood Culture [Culture,Blood] [] Routine Date of Encounter: 12/28/18 Time of Encounter: 10:00 - Discharge Diagnosis (1) Gram-positive bacteremia Priority: Primary Status: Acute Assessment and Plan: 53 year old female with past medical history of end-stage renal disease, arterial fibrillation anticoagulated due to multiple episodes of GI bleeding presented to the ED for fever and chills. [id number] encounter occurred at 3:30 AM. Patient stated that his fever has started to occur on Wednesday and underwent dialysis on Wednesday and was noted to be hypotensive, tachycardic and febrile. Patient that day had blood cultures drawn and was sent home. The fever continues to be constant and mildly alleviated with Tylenol been taking every 4 hours with diaphoresis and chills. Patient today was called with positive blood culture that showed gram-positive cocci most came to the ED. Patient also has been complaining of worsening low constant back pain, sharp 10/10 nonradiating worsened with extension and standing She was assessed with sepsis with 2 out of 2 blood culture samples positive for Staph lugdunensis. 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 TTE did not show any vegetations. 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 Her low Hb status and GI bleeding disqualifies her for analysis surgical candidate. Patient prefers that the fistula be removed by patient primary surgeon Dr. Molina in [place]. She will complete one more week of Iv vancomycin per ID recs to complete a 2 week course. 35 minutes was spent discharging this patient (2) DVT prophylaxis Priority: Primary Status: Acute (3) GI bleed Priority: Primary Status: Resolved Qualifiers: GI bleed type/associated pathology: melena Qualified Code(s): K92.1 - Melena (4) Atrial fibrillation Priority: Primary Status: Chronic Qualifiers: Atrial fibrillation type: paroxysmal Qualified Code(s): I48.0 - Paroxysmal atrial fibrillation (5) Obese Priority: Primary Status: Acute Qualifiers: Obesity type: due to excess calories Body mass index: BMI 32.0-32.9 Qualified Code(s): E66.09 - Other obesity due to excess calories; Z68.32 - Body mass index (BMI) 32.0-32.9, adult (6) Thrombocytopenia Priority: Primary Status: Acute Hospital course: Ms. Taylor is a 53 year old female - Time Spent with Patient Total time spent providing and/or coordinating discharge services: - Discharge Medications Prescriptions: New Vancomycin HCl in 5 % Dextrose [Vancomycin 750 mg/250 ml-D5w] 750 mg IV Q48H 7 Days #4 plast..bag Continued Zolpidem [Ambien] 10 mg PO HS PRN PRN Reason: Sleep Sertraline [Zoloft] 100 mg PO DAILY Esomeprazole Magnesium [Nexium] 40 mg PO BID Fluticasone Propionate Nasal [Flonase] 1 spray NS DAILY PRN PRN Reason: Allergy Symptoms Cetirizine HCl [All Day Allergy] 10 mg PO DAILY Albuterol Neb [Proventil Neb] 2.5 mg IH Q8H PRN PRN Reason: Shortness Of Breath Albuterol Sulfate [Ventolin Hfa] 2 puff IH Q4H PRN PRN Reason: Shortness Of Breath Magnesium Oxide 400 mg PO MOTUWE Metoprolol [Lopressor] 25 mg PO BID Budesonide/Formoterol 160/4.5 [Symbicort 160/4.5] 2 puff IH BIDR Montelukast [Singulair] 10 mg PO QPM tablet Renal Vitamin [Renal Caps Softgel] 1 cap PO 3XW capsule Cholecalciferol (Vitamin D3) [Vitamin D3] 10,000 unit PO MO LORazepam [Ativan] 0.5 mg PO BID PRN PRN Reason: Anxiety cloNIDine HCl [CloNIDine HCl] 0.1 mg PO ONCE PRN MDD 0.2 mg PRN Reason: Hypertension Calcium Acetate [Phos-LO] 2,668 mg PO TIDWM Ondansetron HCl [Zofran] 4 mg PO Q8H PRN PRN Reason: Nausea Home Medications: Zolpidem [Ambien] 10 mg PO HS PRN 03/20/16 [History] Esomeprazole Magnesium [Nexium] 40 mg PO BID 05/20/18 [History] Fluticasone Propionate Nasal [Flonase] 1 spray NS DAILY PRN 05/20/18 [History] Sertraline [Zoloft] 100 mg PO DAILY 05/20/18 [History] Cetirizine HCl [All Day Allergy] 10 mg PO DAILY 06/10/18 [History] Albuterol Neb [Proventil Neb] 2.5 mg IH Q8H PRN 09/25/18 [History] Albuterol Sulfate [Ventolin Hfa] 2 puff IH Q4H PRN 09/25/18 [History] Budesonide/Formoterol 160/4.5 [Symbicort 160/4.5] 2 puff IH BIDR 09/25/18 [History] Magnesium Oxide 400 mg PO MOTUWE 09/25/18 [History] Metoprolol [Lopressor] 25 mg PO BID 09/25/18 [History] Montelukast [Singulair] 10 mg PO QPM tablet 09/29/18 [Rx] Renal Vitamin [Renal Caps Softgel] 1 cap PO 3XW capsule 09/29/18 [Rx] Cholecalciferol (Vitamin D3) [Vitamin D3] 10,000 unit PO MO 10/13/18 [History] LORazepam [Ativan] 0.5 mg PO BID PRN 10/13/18 [History] cloNIDine HCl [CloNIDine HCl] 0.1 mg PO ONCE PRN MDD 0.2 mg 12/23/18 [History] Calcium Acetate [Phos-LO] 2,668 mg PO TIDWM 12/24/18 [History] Ondansetron HCl [Zofran] 4 mg PO Q8H PRN 12/24/18 [History] Vancomycin HCl in 5 % Dextrose [Vancomycin 750 mg/250 ml-D5w] 750 mg IV Q48H 7 Days #4 plast..bag 12/28/18 [Rx] Allergies/Adverse Reactions: Allergy/AdvReac Type Severity Reaction Status Date / Time cephalexin [From Keflex] Allergy Hives, ITCH Verified 12/24/18 13:17 Date of admission: 12/24/18 01:27 Primary care physician: Demetra Ellison, Consults: 12/24/18 01:26 Consult to Physical Therapy [CONS] Routine Comment: Evaluate, develop and implement POC Reason for Consult: weakness Does patient have active BEDREST order?: No Is patient medically & hemodynamically stable?: Yes Patient assessed for mobility or mobilized this visit?: Yes 12/24/18 06:00 Consult to Cardiology [CONS] Routine Comment: Consulting Provider: Cardiology Mel Reason for Consult: elevated troponin. Call Completed: No Consult to Infectious Diseases [CONS] Routine Consulting Provider: Infectious Disease Mel Reason for Consult: gram positive bacteremia Call Completed: No Consult to Nephrology [CONS] Routine Consulting Provider: Kidney Mel/JIGNESH/HEMANTH/JEFF Reason for Consult: ESRD, anemia Call Completed: No 12/24/18 18:02 Consult to Vascular Surgery [CONS] Routine Consulting Provider: Vascular Surgery [place] Reason for Consult: assess av fistula Call Completed: No 12/25/18 13:30 Consult to Oncology Hematology [CONS] Routine Consulting Provider: Nataly Palm Reason for Consult: Pancytopenia Call Completed: No 12/26/18 07:45 Consult to Dialysis [CONS] ONCE 12/26/18 10:00 Consult to Gastroenterology [CONS] Routine Consulting Provider: Gastroenterology Mel Reason for Consult: + fecal occult hgb drop Call Completed: No 12/27/18 09:33 Consult to Nurse Navigator [CONS] Routine Comment: hd 12/28/18 07:30 Consult to Dialysis [CONS] QMWF 12/28/18 09:30 Consult to Occupational Therapy [CONS] Routine Comment: Evaluate, develop and implement POC Reason for Consult: weakness Does patient have active BEDREST order?: No Is patient medically & hemodynamically stable?: Yes Patient assessed for mobility or mobilized this visit?: Yes 12/30/18 07:30 Consult to Dialysis [CONS] QMWF - Constitutional Vitals: Temp Pulse Resp BP Pulse Ox 97.9 F 94 18 123/72 100 12/28/18 08:25 12/28/18 06:45 12/28/18 08:25 12/28/18 08:55 12/28/18 07:33 Exam: NAD - Head Head exam: Present: atraumatic, normocephalic - Eye Eye exam: Present: PERRL, conjuntiva pink, sclera anicteric Pupils: Present: PERRL - Neck Neck exam general surgery: Present: supple, trachea midline. Absent: lymphadenopathy - Respiratory Respiratory exam: Present: CTAB. Absent: accessory muscle use, rales, rhonchi, wheezes - Cardiovascular Cardiovascular exam: Present: RRR, +S1, +S2. Absent: diastolic murmur, gallop, rubs, systolic murmur - GI/Abdominal GI/Abdominal exam: Present: normal bowel sounds, soft, no peritoneal signs. Absent: distended, tenderness - Extremities Exam Extremities exam: Present: warm, radial pulses palpable and symmetrical. Absent: calf tenderness, cyanotic, pedal edema - Neurological Exam Neurological exam: Present: CN II-XII intact, oriented X3, no focal deficits. Absent: pronater drift, facial droop, speech deficit - Skin Skin exam: Present: dry, intact - Patient Status Disposition: Home, Self-Care Condition: Good - Ambulatory Orders Ambulatory Orders: Complete Blood Count [HEME] Time Frame: 1 Week, Facility: [facility], Location: [facility] - Discharge Instructions Follow Up With: Demetra Ellison CNP [Primary Care Provider] - 01/05/19 1:00 pm (Please follow up as schedule..)
[2018-12-28] MEDS: Calcium Acetate 667 MG CAPSULE PO SCH ×2 (12:44→12:45)
[2018-12-28] MEDS: Magnesium Oxide 400 MG TABLET PO SCH (12:57)
[2018-12-28] MEDS: Ondansetron ODT 4 MG TAB.RAPDIS SL PRN (14:22)
[2018-12-28 16:34] VITALS: BP 125/77
[2018-12-28] MEDS ORDERED: Aminoglycoside Consult 1 EACH MC ONE (17:24)
[2018-12-29 09:53] LABS: Immunoglobulin A 182 mg/dL (68-408); Immunoglobulin G 790 mg/dL (768-1632); Immunoglobulin M 69 mg/dL (35-263)
[2018-12-30 00:14] LABS: Alpha 2 Globulin (PEP) 0.94 g/dL (0.48-1.05); Beta Globulin (PEP) 0.65 g/dL (0.48-1.10)
[2018-12-30 10:08] LABS: IFE Reflexed IFE Done
== END 2018-12-28 17:25 | disposition home or self-care (01) | DRG 314 ==
LOC: EMEROOARM 17:20 → 2ANU 17:20 → SUATTDRO 12-24 01:27 → 2ANU 12-24 02:15
PROVIDERS: ADMIT Internal Medicine; ATTEND Internal Medicine